=== PATIENT | male | born 1990 | race Caucasian/White ===

== ENCOUNTER 2017-01-25 18:45 | Emergency (ER) | payer BC ==
[2017-01-25] MEDS ORDERED: Ketorolac 60 MG/2 ML SDV IM ONE (18:58)
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
[2017-01-26 01:18] VITALS: BP 127/81
--- NOTE | 2017-01-26 11:41 | CR ---
EXAM DATE: 01/25/17 PATIENT'S AGE: 26 Patient: FRANK VARGAS Facility: [place], [place] Site . Site : 1990 Study: XRay Extremity Left [id number] 7:17:59 PM Ordering Physician: Doctor Forbes Final Report: INDICATION: Injury. Technique: 2 views of the left hand. Impression: Oblique fracture of the proximal phalanx 4th digit. [place] lateral angulation and dorsal angulation. The joint spaces appear normal. Swelling at the level of the PIP joint and fracture site 4th digit. Dictated by Ruben Manrique MD @ Jan 25 2017 7:23PM (Electronic Signature) Report Signed by Proxy. AMPARO
== END 2017-01-25 20:47 | disposition home or self-care (01) ==
LOC: MW.ED 18:45
DX: S62.615A Displaced fracture of proximal phalanx of left ring finger, initial encounter for closed fracture (principal); F17.210 Nicotine dependence, cigarettes, uncomplicated; Y04.0XXA Assault by unarmed brawl or fight, initial encounter
CPT/HCPCS: 73120; 96372; 99283; J1885

== ENCOUNTER 2017-01-28 07:24 | Day surgery (SDC) | payer BC ==
[2017-01-28] MEDS ORDERED: Bupivacaine 0.25%/EPINEPHrine 1:200,000 10 ML SDV ONE (07:31)
[2017-01-28] MEDS ORDERED: Lidocaine 2% 5 ML SDV ONE (07:34)
[2017-01-28] MEDS ORDERED: ceFAZolin 1 GM Vial ONE (07:35)
[2017-01-28] MEDS ORDERED: Midazolam 1 MG/ML 2 ML SDV ONE (07:35)
[2017-01-28] MEDS ORDERED: fentaNYL 250 MCG/5 ML SDV ONE (07:35)
[2017-01-28] MEDS ORDERED: Sodium Chloride 0.9% 20 ML ONE (07:35)
[2017-01-28] MEDS ORDERED: Propofol 200 MG/20 ML SDV ONE (07:35)
[2017-01-28] MEDS ORDERED: Bupivacaine 0.25%/EPINEPHrine 1:200,000 10 ML SDV INJECT ONE (08:00)
[2017-01-28] MEDS ORDERED: Acetaminophen/HYDROcodone 325-5 MG Tab PO PRN (08:00)
[2017-01-28] MEDS ORDERED: Lactated Ringers 1,000 ML IV SCH (08:00)
[2017-01-28] MEDS ORDERED: ceFAZolin 2 GM in Premix Bag 1 BAG IV ONE (08:00)
--- NOTE | 2017-01-28 08:11 | PCM.PREANE ---
Preanesthetic Assessment - Anesthesia/Transfusion/Family Hx Anesthesia History: Prior Anesthesia Without Reaction Family History of Anesthesia Reaction: No Transfusion History: No Prior Transfusion(s) Intubation History: Unknown - Review of Systems General: No Symptoms Pulmonary: No Symptoms Cardiovascular: No Symptoms Gastrointestinal: No symptoms Neurological: No Symptoms Other: Reports: None - Physical Assessment NPO Status Date: 01/27/17 NPO Status Time: 22:30 O2 Sat by Pulse Oximetry: 96 Respiratory Rate: 16 Vital Signs: Last Vital Signs Temp 36.6 C 01/28/17 07:36 Pulse 60 01/28/17 07:36 Resp 16 01/28/17 07:36 BP 130/76 01/28/17 07:36 Pulse Ox 96 01/28/17 07:36 Height: 1.65 m Weight: 69.853 kg ASA Class: 2 Mental Status: Alert & Oriented x3 Airway Class: Mallampati = 2 Dentition: Reports: Normal Dentition Thyro-Mental Finger Breadths: 3 Mouth Opening Finger Breadths: 2 ROM/Head Extension: Full Lungs: Clear to auscultation, Normal respiratory effort Cardiovascular: Regular Rate, Regular Rhythm - Allergies Allergies/Adverse Reactions: Allergies Allergy/AdvReac Type Severity Reaction Status Date / Time No Known Allergies Allergy Verified 01/25/17 18:58 - Blood Blood Available: No - Anesthesia Plan Pre-Op Medication Ordered: None - Acknowledgements Anesthesia Type Planned: General Anesthesia Pt an Appropriate Candidate for the Planned Anesthesia: Yes Alternatives and Risks of Anesthesia Discussed w Pt/Guardian: Yes Pt/Guardian Understands and Agrees with Anesthesia Plan: Yes PreAnesthesia Questionnaire - Past Health History Medical/Surgical History: Denies Medical/Surgical History HEENT History: Reports: None Cardiovascular History: Reports: None Respiratory History: Reports: None Gastrointestinal History: Reports: None Genitourinary History: Reports: None Musculoskeletal History: Reports: Other (See Below) Other Musculoskeletal History: club feet Neurological History: Reports: None Psychiatric History: Reports: None Endocrine/Metabolic History: Reports: None Hematologic History: Reports: None Immunologic History: Reports: None Oncologic (Cancer) History: Reports: None Dermatologic History: Reports: None - Infectious Disease History Infectious Disease History: Reports: Chicken Pox - Past Surgical History Head Surgeries/Procedures: Reports: None Male Surgical History: Reports: None Musculoskeletal Surgical History: Reports: Other (See Below) Other Musculoskeletal Surgeries/Procedures:: repair of club feet - SUBSTANCE USE Smoking Status *Q: Current Every Day Smoker (1/2 ppd) Tobacco Use Within Last Twelve Months: Cigarettes, Smokeless Tobacco Recreational Drug Use History: No - HOME MEDS Home Medications: Home Meds . [No Known Home Meds] 02/28/15 [History] - CURRENT (IN HOUSE) MEDS Current Meds: Current Medications Hydrocodone Bitart/Acetaminophen (Stephan 325-5 Mg) 1 tab PO Q4H PRN PRN Reason: Pain Lactated Ringer's (Ringers, Lactated) 1,000 mls @ 125 mls/hr IV ASDIRECTED MICHELLE Last Admin: 01/28/17 07:37 Dose: 125 mls/hr Cefazolin Sodium/Dextrose 2 gm (/ Premix) 50 mls @ 100 mls/hr IV ONETIME ONE Stop: 01/28/17 08:29 Discontinued Medications Bupivacaine HCl/Epinephrine Bitart (Marcaine 0.25%/Epinephrine 1:200,000) 10 ml INJECT ONETIME ONE Stop: 01/28/17 08:01 Bupivacaine HCl/Epinephrine Bitart (Marcaine 0.25%/Epinephrine 1:200,000) Confirm Administered Dose 20 ml .ROUTE .STK-MED ONE Stop: 01/28/17 07:32 Cefazolin Sodium (Ancef) Confirm Administered Dose 2 gm .ROUTE .STK-MED ONE Stop: 01/28/17 07:36 Fentanyl (Sublimaze) Confirm Administered Dose 250 mcg .ROUTE .STK-MED ONE Stop: 01/28/17 07:36 Sodium Chloride (Normal Saline) Confirm Administered Dose 20 mls @ as directed .ROUTE .STK-MED ONE Stop: 01/28/17 07:36 Lidocaine (Xylocaine-Mpf 2%) Confirm Administered Dose 10 ml .ROUTE .STK-MED ONE Stop: 01/28/17 07:35 Midazolam HCl (Versed 1 Mg/Ml) Confirm Administered Dose 2 mg .ROUTE .STK-MED ONE Stop: 01/28/17 07:36 Propofol (Diprivan 20 Ml) Confirm Administered Dose 400 mg .ROUTE .STK-MED ONE Stop: 01/28/17 07:36
[2017-01-28] MEDS ORDERED: fentaNYL 100 MCG/2 ML SDV ONE (09:31)
[2017-01-28] MEDS ORDERED: fentaNYL 100 MCG/2 ML SDV IVPUSH PRN (09:46)
[2017-01-28 11:10] VITALS: BP 125/77
--- NOTE | 2017-01-28 15:13 | CR ---
EXAMINATION: Left hand HISTORY: Reduction COMPARISON: 01/25/2017 TECHNIQUE: 3 views FINDINGS/IMPRESSION: Operative control films demonstrate 2 pins fixating a minimally displaced obliq ue proximal fourth phalanx fracture.
--- NOTE | 2017-01-28 16:32 | PCM.OPNOTE ---
- General Post-Op/Procedure Note Date of Surgery/Procedure: 01/28/17 Operative Procedure(s): closed reduction pin fixation of left ring finger proximal phalanx fracture Pre Op Diagnosis: left ring finger proximal phalanx fracture - closed and displaced. Post-Op Diagnosis: Same Anesthesia Technique: General LMA, Local Primary Surgeon: Laura Obregon Wet Chemistry Analyst: Leslie Khoury Complications: None Condition: Good Free Text/Narrative:: Intake & Output 01/28/17 01/28/17 01/28/17 07:59 15:59 23:59 Intake Total 1000 Balance 1000 [id number]
--- NOTE | 2017-01-28 23:09 | OR ---
SURGEON: LESLI FERNANDEZ MD DATE OF PROCEDURE: 01/28/2017 PREOPERATIVE DIAGNOSIS: Left ring finger proximal phalanx fracture. POSTOPERATIVE DIAGNOSIS: Left ring finger proximal phalanx fracture. PROCEDURE: Closed reduction and pin fixation of left ring finger displaced proximal phalanx fracture. AUDIENCE DEVELOPMENT MANAGER: Leslie Khoury. ANESTHESIA: General LMA with local anesthesia. INDICATIONS: Mr. Winston Wagner is a 26-year-old gentleman with a displaced proximal phalanx fracture of the ring finger. This is on the left hand. Risks and benefits of closed reduction and percutaneous pin fixation were discussed with him and he was in agreement to proceed. Risks were including, but not limited to, bleeding, infection, damage to underlying or overlying structures, possible need for future interventions, and possible scarring. PROCEDURE IN DETAILS: After informed consent was obtained and placed on the chart, the patient was brought to the operating theater and laid in the supine position. After adequate general anesthetic was obtained, the area was prepped and draped, a time-out was completed to confirm side and site. Attention was then paid to fluoroscopic imaging which was used to confirm reduction. Two 0.045 K-wires were placed across the fracture site and appropriate reduction was appreciated in the lateral position. The PA position was minimally displaced, but deemed acceptable. The wires were trimmed and covers were placed. The hand was placed in a short-arm ulnar gutter splint. This was done with plaster. The patient tolerated this well. All counts of needles were correct at the end the case. The wound was dressed with Xeroform and fluffs prior to splinting. FOLLOWUP INSTRUCTIONS: The patient will see us in clinic in 10 days sooner if any problems, questions, or concerns. He was given a prescription for diclofenac for pain control. HEGGTHE / MODL /[id number]
== END 2017-01-28 11:05 | disposition home or self-care (01) ==
LOC: MW.SDS 07:24
PROVIDERS: ATTEND Plastic Surgery
PROC: 0PSV34Z Reposition Left Finger Phalanx with Internal Fixation Device, Percutaneous Approach (ICD-10-PCS; principal; 2017-01-28)
DX: S62.615A Displaced fracture of proximal phalanx of left ring finger, initial encounter for closed fracture (principal); F17.210 Nicotine dependence, cigarettes, uncomplicated; Z98.890 Other specified postprocedural states
CPT/HCPCS: 26727; 76000; J0690; J2250; J3010; J7120; 01820; J2704

== ENCOUNTER 2017-08-06 21:41 | Emergency (ER) | payer BC ==
[2017-08-06 22:02] VITALS: BP 135/88
--- NOTE | 2017-08-06 22:03 | EDM.PDOC ---
ED HPI GENERAL MEDICAL PROBLEM - General Chief Complaint: General Stated Complaint: MEDICAL CLEARANCE Time Seen by Provider: 08/06/17 21:59 - History of Present Illness INITIAL COMMENTS - FREE TEXT/NARRATIVE: HISTORY AND PHYSICAL: History of present illness: Patient is 27-year-old white male here for medical clearance and custody of law enforcement. Review of systems: As per history of present illness and below otherwise all systems reviewed and negative. Past medical history: As per history of present illness and as reviewed below otherwise noncontributory. Surgical history: As per history of present illness and as reviewed below otherwise noncontributory. Social history: No reported history of drug or alcohol abuse. Family history: As per history of present illness and as reviewed below otherwise noncontributory. Physical exam: HEENT: Atraumatic, normocephalic, pupils reactive, negative for conjunctival pallor or scleral icterus, mucous membranes moist, throat clear, neck supple, nontender, trachea midline. Lungs: Clear to auscultation, breath sounds equal bilaterally, chest nontender. Heart: S1S2, regular, negative for clicks, rubs, or JVD. Abdomen: Soft, nondistended, nontender. Negative for masses or hepatosplenomegaly. Negative for costovertebral tenderness. Pelvis: Stable nontender. Genitourinary: Deferred. Rectal: Deferred. Extremities: Atraumatic, negative for cords or calf pain. Neurovascular unremarkable. Neuro: Awake, alert, oriented. Cranial nerves II through XII unremarkable. Cerebellum unremarkable. Motor and sensory unremarkable throughout. Exam nonfocal. Diagnostics: None Therapeutics: None Impression: #1 medically clear for incarceration Definitive disposition and diagnosis as appropriate pending reevaluation and review of above. - Related Data Allergies Allergy/AdvReac Type Severity Reaction Status Date / Time No Known Allergies Allergy Verified 01/25/17 18:58 Home Meds: Home Meds Diclofenac Sodium [IJD: Diclofenac Sodium] 75 mg PO .TWICE DAILY W MEALS #20 tab.ec 01/28/17 [Rx] Past Medical History - Past Health History Medical/Surgical History: Denies Medical/Surgical History HEENT History: Reports: None Cardiovascular History: Reports: None Respiratory History: Reports: None Gastrointestinal History: Reports: None Genitourinary History: Reports: None Musculoskeletal History: Reports: Other (See Below) Other Musculoskeletal History: club feet Neurological History: Reports: None Psychiatric History: Reports: None Endocrine/Metabolic History: Reports: None Hematologic History: Reports: None Immunologic History: Reports: None Oncologic (Cancer) History: Reports: None Dermatologic History: Reports: None - Infectious Disease History Infectious Disease History: Reports: Chicken Pox - Past Surgical History Head Surgeries/Procedures: Reports: None Male Surgical History: Reports: None Musculoskeletal Surgical History: Reports: Other (See Below) Other Musculoskeletal Surgeries/Procedures:: repair of club feet Social & Family History - Family History Family Medical History: Noncontributory - Tobacco Use Smoking Status *Q: Current Every Day Smoker (1/2 ppd) Years of Tobacco use: 10 Packs/Tins Daily: 0.5 - Caffeine Use Caffeine Use: Reports: None - Recreational Drug Use Recreational Drug Use: No Drug Use in Last 12 Months: No ED ROS GENERAL - Review of Systems Review Of Systems: ROS reveals no pertinent complaints other than HPI. ED EXAM, GENERAL - Physical Exam Exam: See Below (see dictation) Departure - Departure Time of Disposition: 22:02 Disposition: Home, Self-Care 01 Condition: Good Clinical Impression: Medical clearance for incarceration - Discharge Information Referrals: PCP,None [Primary Care Provider] - Additional Instructions: The following information is given to patients seen in the emergency department who are being discharged to home. This information is to outline your options for follow-up care. We provide all patients seen in our emergency department with a follow-up referral. The need for follow-up, as well as the timing and circumstances, are variable depending upon the specifics of your emergency department visit. If you don't have a primary care physician on staff, we will provide you with a referral. We always advise you to contact your personal physician following an emergency department visit to inform them of the circumstance of the visit and for follow-up with them and/or the need for any referrals to a consulting specialist. The emergency department will also refer you to a specialist when appropriate. This referral assures that you have the opportunity for followup care with a specialist. All of these measure are taken in an effort to provide you with optimal care, which includes your followup. Under all circumstances we always encourage you to contact your private physician who remains a resource for coordinating your care. When calling for followup care, please make the office aware that this follow-up is from your recent emergency room visit. If for any reason you are refused follow -up, please contact the [facility] emergency department at and asked to speak to the emergency department charge nurse. Follow-up primary medical doctor 1-2 days return as needed as discussed
== END 2017-08-06 22:08 | disposition home or self-care (01) ==
LOC: MW.ED 21:41
DX: Z02.89 Encounter for other administrative examinations (principal); F17.210 Nicotine dependence, cigarettes, uncomplicated; Z79.1 Long term (current) use of non-steroidal anti-inflammatories (NSAID)
CPT/HCPCS: 99282

== ENCOUNTER 2017-11-12 13:34 | Observation (INO) | payer BC ==
[2017-11-12] MEDS ORDERED: Sodium Chloride 0.9% 1,000 ML IV ONE ×2 (13:48→16:56)
--- NOTE | 2017-11-12 13:51 | EDM.PDOC ---
ED HPI GENERAL MEDICAL PROBLEM - General Chief Complaint: Gastrointestinal Problem Stated Complaint: VOMITTING BLOOD Time Seen by Provider: 11/12/17 13:45 Source of Information: Reports: Patient History Limitations: Reports: No Limitations - History of Present Illness INITIAL COMMENTS - FREE TEXT/NARRATIVE: HISTORY AND PHYSICAL: History of present illness: Patient is a 27-year-old male who presents to the emergency room today with complaints of vomiting, abdominal pain generalized body aches. Patient states he had drank heavily last night had projectile/ "non-stop" vomiting. Today he noticed that there was "red and black" in his emesis. A friend that is with him states that she was with him last night and he was "drunk". She reports that he had gotten into the shower and had fallen, hitting his head. He proceeded to sleep but woke up this morning again with red/maroon colored emesis. Continues with generalized abdominal pain with nausea/vomiting. Patient is a daily smoker and reports he was a daily drinker up until approximately 3 months ago. Reports his alcohol is now limited to occasional/ social. Routine marijuana smoker. Denies any other drug/substance abuse. He denies any fever, chills, chest pain or shortness of breath. Denies any diarrhea or constipation. Review of systems: As per history of present illness and below otherwise all systems reviewed and negative. Past medical history: As per history of present illness and as reviewed below otherwise noncontributory. Surgical history: As per history of present illness and as reviewed below otherwise noncontributory. Social history: No reported history of drug or alcohol abuse. Family history: As per history of present illness and as reviewed below otherwise noncontributory. Physical exam: General: Well-developed and well-nourished 27-year-old male. Alert and oriented. Nontoxic appearing but is actively vomiting. HEENT: Superficial abrasions noted to the left and right upper forehead, nontender with palpation, normocephalic, pupils equal and reactive bilaterally, negative for conjunctival pallor or scleral icterus. His mucous membranes are moist, throat clear, neck supple, nontender, trachea midline. No drooling or trismus noted. No meningeal signs. Lungs: Clear to auscultation, breath sounds equal bilaterally, chest nontender. Heart: S1S2, regular rate and rhythm without overt murmur Abdomen: Soft, nondistended, diffuse tenderness in all 4 quadrants. Negative for masses or hepatosplenomegaly. Negative for costovertebral tenderness. Pelvis: Stable nontender. Genitourinary: Deferred. Rectal: This was done with a chaparone at bedside. No external/internal hemorrhoids noted. Hemoccult negative Skin: Intact, warm, dry. No lesions or rashes noted. Superficial abrasions noted to the upper forehead. Extremities: Atraumatic, negative for cords or calf pain. Neurovascular unremarkable. Neuro: Awake, alert, oriented. Cranial nerves II through XII unremarkable. Cerebellum unremarkable. Motor and sensory unremarkable throughout. Exam nonfocal. Notes: Patient is actively vomiting with light red/clear appearing emesis. Generalized abdominal pain and tenderness with palpation. Labs/Imagining/Meds ordered. Rectal exam was done with a environmental protection geologist at the bedside. Patient is Hemoccult negative. 1543: WBC is 26.03 - Waiting for abdominal/pelvis CT. VSS. Patient still c/o nausea and dry heaving. Phenergan IM ordered. 1615: Nausea/vomiting has resolved. Patient resting with eyes shut. VSS. 1650: There has been a delay in patient getting his CT; waiting on CT results. 1740: Patient has no current complaints. He is resting quietly and texting on his phone. Has not had any nausea or vomiting. Head CT normal without evidence of fracture or bleeding. No acute abnormality of the abdomen and pelvis ( appendix is normal). Patient does not feel comfortable to be discharged to home. I would like to keep him for observation to monitor his white count and make sure he is improving. 1809- Patient admitted as an Observation per [place] Diagnostics: CBC, CMP, amylase, lipase, H.Pylori, CT abd/pelvis, head CT, UA, drug screen Therapeutics: IV fluid, Zofran, Pepcid, Phenergan IM Impression: Intractable Vomiting Dehydration Plan: Observation to Med/Surg Definitive disposition and diagnosis as appropriate pending reevaluation and review of above. Duration: Hour(s): Location: Reports: Abdomen Abdomen Pain Score (Numeric/FACES): 10 - Related Data Allergies Allergy/AdvReac Type Severity Reaction Status Date / Time No Known Allergies Allergy Verified 11/12/17 13:58 Home Meds: Home Meds FLUoxetine HCl [Prozac] 20 mg DAILY 11/12/17 [History] cloNIDine [Catapres] 1 tab DAILY 11/12/17 [History] Past Medical History - Past Health History Medical/Surgical History: Denies Medical/Surgical History HEENT History: Reports: None Cardiovascular History: Reports: None Respiratory History: Reports: None Gastrointestinal History: Reports: None Genitourinary History: Reports: None Musculoskeletal History: Reports: Other (See Below) Other Musculoskeletal History: club feet Neurological History: Reports: None Psychiatric History: Reports: None Endocrine/Metabolic History: Reports: None Hematologic History: Reports: None Immunologic History: Reports: None Oncologic (Cancer) History: Reports: None Dermatologic History: Reports: None - Infectious Disease History Infectious Disease History: Reports: Chicken Pox - Past Surgical History Head Surgeries/Procedures: Reports: None Male Surgical History: Reports: None Musculoskeletal Surgical History: Reports: Other (See Below) Other Musculoskeletal Surgeries/Procedures:: repair of club feet Social & Family History - Family History Family Medical History: Noncontributory - Tobacco Use Smoking Status *Q: Current Every Day Smoker (1/2 ppd) Years of Tobacco use: 10 Packs/Tins Daily: 0.5 - Caffeine Use Caffeine Use: Reports: None - Recreational Drug Use Recreational Drug Use: No Drug Use in Last 12 Months: No Recreational Drug Type: Reports: Marijuana/Hashish ED ROS GENERAL - Review of Systems Review Of Systems: ROS reveals no pertinent complaints other than HPI. ED EXAM, GI/ABD - Physical Exam Exam: See Below (See dictation) Course - Vital Signs Last Recorded V/S: Last Vital Signs Temp 96.6 F 11/12/17 13:54 Pulse 64 11/12/17 13:54 Resp 26 H 11/12/17 13:54 BP 138/94 H 11/12/17 13:54 Pulse Ox 100 11/12/17 13:54 - Orders/Labs/Meds Orders: Active Orders 24 hr Category Date Time Status Admission Status [Patient Status] [ADT] Stat ADT 11/12/17 18:17 Ordered Abdomen Pelvis w Cont [CT] Stat Exams 11/12/17 13:48 Taken Head wo Cont [CT] Stat Exams 11/12/17 13:59 Taken CULTURE BLOOD [BC] Stat Lab 11/12/17 17:40 Results CULTURE BLOOD [BC] Stat Lab 11/12/17 18:02 Received DRUG SCREEN, URINE [URCHEM] Stat Lab 11/12/17 15:41 Ordered UA W/MICROSCOPIC [URIN] Stat Lab 11/12/17 15:41 Ordered Sodium Chloride 0.9% [Normal Saline] 1,000 ml Med 11/12/17 16:56 Active IV STAT Blood Culture x2 Reflex Set [OM.PC] Stat Oth 11/12/17 17:01 Ordered Medication Orders Sodium Chloride (Normal Saline) 1,000 mls @ 125 mls/hr IV STAT ONE Stop: 11/13/17 00:55 Last Admin: 11/12/17 17:56 Dose: 125 mls/hr Labs: Laboratory Tests 11/12/17 11/12/17 11/12/17 Range/Units 14:10 14:10 14:10 WBC 26.03 H (4.0-11.0) K/uL RBC 5.87 (4.50-5.90) M/uL Hgb 17.9 H (13.0-17.0) g/dL Hct 49.7 (38.0-50.0) % MCV 84.7 (80.0-98.0) fL MCH 30.5 (27.0-32.0) pg MCHC 36.0 (31.0-37.0) g/dL RDW Std Deviation 40.4 (28.0-62.0) fl RDW Coeff of Kathryn 13 (11.0-15.0) % Plt Count 340 (150-400) K/uL MPV 9.80 (7.40-12.00) fL Add Manual Diff YES Neutrophils % (Manual) 90 H (48.0-80.0) % Band Neutrophils % 4 % Lymphocytes % (Manual) 3 L (16.0-40.0) % Monocytes % (Manual) 3 (0.0-15.0) % Nucleated RBC % 0.0 /100WBC Absolute Seg Neuts 23.4 H (1.4-5.7) Band Neutrophils # 1.0 Lymphocytes # (Manual) 0.8 (0.6-2.4) Monocytes # (Manual) 0.8 (0.0-0.8) Nucleated RBCs # 0 K/uL Sodium 137 (136-148) mmol/L Potassium 4.1 (3.5-5.1) mmol/L Chloride 98 (98-107) mmol/L Carbon Dioxide 13.2 L (21.0-32.0) mmol/L BUN 20 H (7.0-18.0) mg/dL Creatinine 1.4 H (0.8-1.3) mg/dL Est Cr Clr Drug Dosing 68.33 mL/min Estimated GFR (MDRD) > 60.0 ml/min Glucose 127 H (74-106) mg/dL Calcium 9.8 (8.5-10.1) mg/dL Total Bilirubin 0.5 (0.2-1.0) mg/dL AST 36 (15-37) IU/L ALT 42 (14-63) IU/L Alkaline Phosphatase 69 (46-116) U/L Total Protein 8.5 H (6.4-8.2) g/dL Albumin 5.2 H (3.4-5.0) g/dL Globulin 3.3 (2.0-3.5) g/dL Albumin/Globulin Ratio 1.6 (1.3-2.8) Amylase 40 (25-115) U/L Lipase 56 L (73-393) U/L Urine Color Urine Appearance Urine pH (5.0-8.0) Ur Specific [place] (1.001-1.035) Urine Protein (NEGATIVE) mg/dL Urine Glucose (UA) (NEGATIVE) mg/dL Urine Ketones (NEGATIVE) mg/dL Urine Occult Blood (NEGATIVE) Urine Nitrite (NEGATIVE) Urine Bilirubin (NEGATIVE) Urine Urobilinogen (<2.0) EU/dL Ur Leukocyte Esterase (NEGATIVE) Urine RBC (0-2/HPF) Urine WBC (0-5/HPF) Ur Epithelial Cells (NONE-FEW) Urine Bacteria (NEGATIVE) Urine Opiates Screen (NEGATIVE) Ur Oxycodone Screen (NEGATIVE) Urine Methadone Screen (NEGATIVE) Ur Barbiturates Screen (NEGATIVE) Ur Phencyclidine Scrn (NEGATIVE) Ur Amphetamine Screen (NEGATIVE) U Methamphetamines Scrn (NEGATIVE) U Benzodiazepines Scrn (NEGATIVE) U Cocaine Metab Screen (NEGATIVE) U Marijuana (THC) Screen (NEGATIVE) H. pylori IgG Antibody NEGATIVE (NEG) 11/12/17 11/12/17 Range/Units 15:41 15:41 WBC (4.0-11.0) K/uL RBC (4.50-5.90) M/uL Hgb (13.0-17.0) g/dL Hct (38.0-50.0) % MCV (80.0-98.0) fL MCH (27.0-32.0) pg MCHC (31.0-37.0) g/dL RDW Std Deviation (28.0-62.0) fl RDW Coeff of Kathryn (11.0-15.0) % Plt Count (150-400) K/uL MPV (7.40-12.00) fL Add Manual Diff Neutrophils % (Manual) (48.0-80.0) % Band Neutrophils % % Lymphocytes % (Manual) (16.0-40.0) % Monocytes % (Manual) (0.0-15.0) % Nucleated RBC % /100WBC Absolute Seg Neuts (1.4-5.7) Band Neutrophils # Lymphocytes # (Manual) (0.6-2.4) Monocytes # (Manual) (0.0-0.8) Nucleated RBCs # K/uL Sodium (136-148) mmol/L Potassium (3.5-5.1) mmol/L Chloride (98-107) mmol/L Carbon Dioxide (21.0-32.0) mmol/L BUN (7.0-18.0) mg/dL Creatinine (0.8-1.3) mg/dL Est Cr Clr Drug Dosing mL/min Estimated GFR (MDRD) ml/min Glucose (74-106) mg/dL Calcium (8.5-10.1) mg/dL Total Bilirubin (0.2-1.0) mg/dL AST (15-37) IU/L ALT (14-63) IU/L Alkaline Phosphatase (46-116) U/L Total Protein (6.4-8.2) g/dL Albumin (3.4-5.0) g/dL Globulin (2.0-3.5) g/dL Albumin/Globulin Ratio (1.3-2.8) Amylase (25-115) U/L Lipase (73-393) U/L Urine Color YELLOW Urine Appearance CLEAR Urine pH 5.5 (5.0-8.0) Ur Specific [place] >= 1.030 (1.001-1.035) Urine Protein 30 (NEGATIVE) mg/dL Urine Glucose (UA) NEGATIVE (NEGATIVE) mg/dL Urine Ketones 40 H (NEGATIVE) mg/dL Urine Occult Blood SMALL H (NEGATIVE) Urine Nitrite NEGATIVE (NEGATIVE) Urine Bilirubin NEGATIVE (NEGATIVE) Urine Urobilinogen 0.2 (<2.0) EU/dL Ur Leukocyte Esterase NEGATIVE (NEGATIVE) Urine RBC 0-1 (0-2/HPF) Urine WBC 0-1 (0-5/HPF) Ur Epithelial Cells RARE (NONE-FEW) Urine Bacteria RARE (NEGATIVE) Urine Opiates Screen NEGATIVE (NEGATIVE) Ur Oxycodone Screen NEGATIVE (NEGATIVE) Urine Methadone Screen NEGATIVE (NEGATIVE) Ur Barbiturates Screen NEGATIVE (NEGATIVE) Ur Phencyclidine Scrn NEGATIVE (NEGATIVE) Ur Amphetamine Screen NEGATIVE (NEGATIVE) U Methamphetamines Scrn NEGATIVE (NEGATIVE) U Benzodiazepines Scrn NEGATIVE (NEGATIVE) U Cocaine Metab Screen NEGATIVE (NEGATIVE) U Marijuana (THC) Screen POSITIVE (NEGATIVE) H. pylori IgG Antibody (NEG) Meds: Medications Generic Name Dose Route Start Last Admin Trade Name Freq PRN Reason Stop Dose Admin Sodium Chloride 1,000 mls @ 125 mls/hr 11/12/17 16:56 11/12/17 17:56 Normal Saline IV 11/13/17 00:55 125 mls/hr STAT ONE Administration Discontinued Medications Generic Name Dose Route Start Last Admin Trade Name Freq PRN Reason Stop Dose Admin Famotidine 20 mg 11/12/17 13:59 11/12/17 14:11 Pepcid IVPUSH 11/12/17 14:00 20 mg ONETIME ONE Administration Sodium Chloride 1,000 mls @ 999 mls/hr 11/12/17 13:48 11/12/17 14:10 Normal Saline IV 11/12/17 14:48 999 mls/hr STAT ONE Administration Iopamidol 85 ml 11/12/17 17:19 11/12/17 17:30 Isovue Multipack-370 (76%) IVPUSH 11/12/17 17:20 85 ml ONETIME STA Administration Ondansetron HCl 8 mg 11/12/17 13:59 11/12/17 14:11 Zofran IVPUSH 11/12/17 14:00 8 mg ONETIME ONE Administration Promethazine HCl 25 mg 11/12/17 15:43 11/12/17 16:04 Phenergan IM 11/12/17 15:44 25 mg ONETIME ONE Administration Departure - Departure Time of Disposition: 18:25 Disposition: Refer to Observation Clinical Impression: Dehydration, Vomiting - Discharge Information Referrals: PCP,None [Primary Care Provider] - Forms: ED Department Discharge - My Orders Last 24 Hours: My Active Orders 11/12/17 13:48 Abdomen Pelvis w Cont [CT] Stat 11/12/17 13:59 Head wo Cont [CT] Stat 11/12/17 15:41 DRUG SCREEN, URINE [URCHEM] Stat UA W/MICROSCOPIC [URIN] Stat 11/12/17 16:56 Sodium Chloride 0.9% [Normal Saline] 1,000 ml IV STAT 11/12/17 17:01 Blood Culture x2 Reflex Set [OM.PC] Stat 11/12/17 17:40 CULTURE BLOOD [BC] Stat 11/12/17 18:02 CULTURE BLOOD [BC] Stat 11/12/17 18:17 Admission Status [Patient Status] [ADT] Stat - Assessment/Plan Last 24 Hours: My Active Orders 11/12/17 13:48 Abdomen Pelvis w Cont [CT] Stat 11/12/17 13:59 Head wo Cont [CT] Stat 11/12/17 15:41 DRUG SCREEN, URINE [URCHEM] Stat UA W/MICROSCOPIC [URIN] Stat 11/12/17 16:56 Sodium Chloride 0.9% [Normal Saline] 1,000 ml IV STAT 11/12/17 17:01 Blood Culture x2 Reflex Set [OM.PC] Stat 11/12/17 17:40 CULTURE BLOOD [BC] Stat 11/12/17 18:02 CULTURE BLOOD [BC] Stat 11/12/17 18:17 Admission Status [Patient Status] [ADT] Stat
[2017-11-12] MEDS ORDERED: Ondansetron 4 MG/2 ML SDV IVPUSH ONE (13:59)
[2017-11-12] MEDS ORDERED: Famotidine 20 MG/2 ML SDV IVPUSH ONE (13:59)
--- NOTE | 2017-11-12 14:55 | CR ---
EXAMINATION: Portable chest radiograph. HISTORY: Shortness of breath. FINDINGS: The trachea is midline. The cardiomediastinal silhouette is within normal limits. No pulmonary infilt rates, effusions or pneumothorax. Osseous structures appear unremarkable. IMPRESSION: No acute cardiopulmonary process.
[2017-11-12 15:10] LABS: CHLORIDE,CL 98 mmol/L (98-107); SODIUM,NA 137 mmol/L (136-148)
[2017-11-12] MEDS ORDERED: Promethazine 25 MG/ML SDV IM ONE (15:43)
[2017-11-12] MEDS ORDERED: Iopamidol 755 MG/ML 500 ML Multipack Bottle IVPUSH STA (17:19)
[2017-11-12] MEDS ORDERED: Sodium Chloride 0.9% 2.5 ML Syringe FLUSH PRN (19:20)
[2017-11-12] MEDS ORDERED: Sodium Chloride 0.9% 10 ML Syringe FLUSH PRN (19:20)
[2017-11-12] MEDS ORDERED: HYDROmorphone 2 MG/ML SDV IVPUSH PRN (19:20)
[2017-11-12] MEDS ORDERED: Promethazine 25 MG/ML SDV IM PRN (19:20)
--- NOTE | 2017-11-12 19:41 | PCM.HP ---
<Paula Hernandezqas Z - Last Filed: 11/12/17 20:41> H&P History of Present Illness - General Date of Service: 11/12/17 Admit Problem/Dx: Admission Diagnosis/Problem Admission Diagnosis/Problem Dehydration - History of Present Illness Initial Comments - Free Text/Narative: This is a 27-year-old male who is being admitted secondary to intractable nausea and vomiting of acute onset. Patient was heavily drinking yesterday, and started to have multiple episodes of retching and vomiting, patient's friend does report that he did have what appeared to be reddish-type vomit and possibly some blood type symptoms. Patient then went home with a friend, friend states that the patient was taking a shower when he slipped and fell, got up and went to his bed afterwards had another bout of vomiting and then went to sleep. Patient woke up again with severe abdominal pain and continued to have multiple episodes of intractable nausea and vomiting and unable to taken any by mouth. Patient does state that he has had previous withdrawal symptoms in the past due to alcohol abuse but has not been drinking too heavily as of recently. He does state that he has recently been using marijuana but no other illicit drugs. He has not had any issues of GI complaints prior to this episode. Abdomen Pain Score (Numeric/FACES): 10 - Related Data Allergies/Adverse Reactions: Allergies Allergy/AdvReac Type Severity Reaction Status Date / Time No Known Allergies Allergy Verified 11/12/17 13:58 Home Medications: Home Meds FLUoxetine HCl [Prozac] 20 mg DAILY 11/12/17 [History] cloNIDine [Catapres] 1 tab DAILY 11/12/17 [History] Past Medical History - Past Health History Medical/Surgical History: Denies Medical/Surgical History HEENT History: Reports: None Cardiovascular History: Reports: None Respiratory History: Reports: None Gastrointestinal History: Reports: None Genitourinary History: Reports: None Musculoskeletal History: Reports: Other (See Below) Other Musculoskeletal History: club feet Neurological History: Reports: None Psychiatric History: Reports: None Endocrine/Metabolic History: Reports: None Hematologic History: Reports: None Immunologic History: Reports: None Oncologic (Cancer) History: Reports: None Dermatologic History: Reports: None - Infectious Disease History Infectious Disease History: Reports: Chicken Pox - Past Surgical History Head Surgeries/Procedures: Reports: None Male Surgical History: Reports: None Musculoskeletal Surgical History: Reports: Other (See Below) Other Musculoskeletal Surgeries/Procedures:: repair of club feet Social & Family History - Family History Family Medical History: Noncontributory - Tobacco Use Smoking Status *Q: Current Every Day Smoker (1/2 ppd) Years of Tobacco use: 10 Packs/Tins Daily: 0.5 - Caffeine Use Caffeine Use: Reports: None - Recreational Drug Use Recreational Drug Use: No Drug Use in Last 12 Months: No Recreational Drug Type: Reports: Marijuana/Hashish Recreational Drug Use Frequency: Socially H&P Review of Systems - Review of Systems: Review Of Systems: ROS reveals no pertinent complaints other than HPI. Exam - Exam Exam: See Below - Vital Signs Vital Signs: Last Vital Signs Temp 37.0 C 11/12/17 19:24 Pulse 69 11/12/17 19:24 Resp 16 11/12/17 19:24 BP 147/78 H 11/12/17 19:24 Pulse Ox 98 11/12/17 19:24 Weight: 68.8 kg - Exam General: Alert, Oriented, Mild Distress, Moderate Distress Lungs: Clear to Auscultation, Normal Respiratory Effort Cardiovascular: Regular Rate, Regular Rhythm GI/Abdominal Exam: Soft, No Organomegaly, Tender Back Exam: Other (Bilateral back pain likely secondary to musculoskeletal pain due to severe wrenching) Extremities: Normal Inspection, Normal Range of Motion - Patient Data Lab Results Last 24 hrs: Laboratory Results - last 24 hr 11/12/17 11/12/17 11/12/17 Range/Units 14:10 14:10 14:10 WBC 26.03 H (4.0-11.0) K/uL RBC 5.87 (4.50-5.90) M/uL Hgb 17.9 H (13.0-17.0) g/dL Hct 49.7 (38.0-50.0) % MCV 84.7 (80.0-98.0) fL MCH 30.5 (27.0-32.0) pg MCHC 36.0 (31.0-37.0) g/dL RDW Std Deviation 40.4 (28.0-62.0) fl RDW Coeff of Kathryn 13 (11.0-15.0) % Plt Count 340 (150-400) K/uL MPV 9.80 (7.40-12.00) fL Add Manual Diff YES Neutrophils % (Manual) 90 H (48.0-80.0) % Band Neutrophils % 4 % Lymphocytes % (Manual) 3 L (16.0-40.0) % Monocytes % (Manual) 3 (0.0-15.0) % Nucleated RBC % 0.0 /100WBC Absolute Seg Neuts 23.4 H (1.4-5.7) Band Neutrophils # 1.0 Lymphocytes # (Manual) 0.8 (0.6-2.4) Monocytes # (Manual) 0.8 (0.0-0.8) Nucleated RBCs # 0 K/uL Sodium 137 (136-148) mmol/L Potassium 4.1 (3.5-5.1) mmol/L Chloride 98 (98-107) mmol/L Carbon Dioxide 13.2 L (21.0-32.0) mmol/L BUN 20 H (7.0-18.0) mg/dL Creatinine 1.4 H (0.8-1.3) mg/dL Est Cr Clr Drug Dosing 68.33 mL/min Estimated GFR (MDRD) > 60.0 ml/min Glucose 127 H (74-106) mg/dL Calcium 9.8 (8.5-10.1) mg/dL Total Bilirubin 0.5 (0.2-1.0) mg/dL AST 36 (15-37) IU/L ALT 42 (14-63) IU/L Alkaline Phosphatase 69 (46-116) U/L Total Protein 8.5 H (6.4-8.2) g/dL Albumin 5.2 H (3.4-5.0) g/dL Globulin 3.3 (2.0-3.5) g/dL Albumin/Globulin Ratio 1.6 (1.3-2.8) Amylase 40 (25-115) U/L Lipase 56 L (73-393) U/L Urine Color Urine Appearance Urine pH (5.0-8.0) Ur Specific [place] (1.001-1.035) Urine Protein (NEGATIVE) mg/dL Urine Glucose (UA) (NEGATIVE) mg/dL Urine Ketones (NEGATIVE) mg/dL Urine Occult Blood (NEGATIVE) Urine Nitrite (NEGATIVE) Urine Bilirubin (NEGATIVE) Urine Urobilinogen (<2.0) EU/dL Ur Leukocyte Esterase (NEGATIVE) Urine RBC (0-2/HPF) Urine WBC (0-5/HPF) Ur Epithelial Cells (NONE-FEW) Urine Bacteria (NEGATIVE) Urine Opiates Screen (NEGATIVE) Ur Oxycodone Screen (NEGATIVE) Urine Methadone Screen (NEGATIVE) Ur Barbiturates Screen (NEGATIVE) Ur Phencyclidine Scrn (NEGATIVE) Ur Amphetamine Screen (NEGATIVE) U Methamphetamines Scrn (NEGATIVE) U Benzodiazepines Scrn (NEGATIVE) U Cocaine Metab Screen (NEGATIVE) U Marijuana (THC) Screen (NEGATIVE) H. pylori IgG Antibody NEGATIVE (NEG) 11/12/17 11/12/17 Range/Units 15:41 15:41 WBC (4.0-11.0) K/uL RBC (4.50-5.90) M/uL Hgb (13.0-17.0) g/dL Hct (38.0-50.0) % MCV (80.0-98.0) fL MCH (27.0-32.0) pg MCHC (31.0-37.0) g/dL RDW Std Deviation (28.0-62.0) fl RDW Coeff of Kathryn (11.0-15.0) % Plt Count (150-400) K/uL MPV (7.40-12.00) fL Add Manual Diff Neutrophils % (Manual) (48.0-80.0) % Band Neutrophils % % Lymphocytes % (Manual) (16.0-40.0) % Monocytes % (Manual) (0.0-15.0) % Nucleated RBC % /100WBC Absolute Seg Neuts (1.4-5.7) Band Neutrophils # Lymphocytes # (Manual) (0.6-2.4) Monocytes # (Manual) (0.0-0.8) Nucleated RBCs # K/uL Sodium (136-148) mmol/L Potassium (3.5-5.1) mmol/L Chloride (98-107) mmol/L Carbon Dioxide (21.0-32.0) mmol/L BUN (7.0-18.0) mg/dL Creatinine (0.8-1.3) mg/dL Est Cr Clr Drug Dosing mL/min Estimated GFR (MDRD) ml/min Glucose (74-106) mg/dL Calcium (8.5-10.1) mg/dL Total Bilirubin (0.2-1.0) mg/dL AST (15-37) IU/L ALT (14-63) IU/L Alkaline Phosphatase (46-116) U/L Total Protein (6.4-8.2) g/dL Albumin (3.4-5.0) g/dL Globulin (2.0-3.5) g/dL Albumin/Globulin Ratio (1.3-2.8) Amylase (25-115) U/L Lipase (73-393) U/L Urine Color YELLOW Urine Appearance CLEAR Urine pH 5.5 (5.0-8.0) Ur Specific [place] >= 1.030 (1.001-1.035) Urine Protein 30 (NEGATIVE) mg/dL Urine Glucose (UA) NEGATIVE (NEGATIVE) mg/dL Urine Ketones 40 H (NEGATIVE) mg/dL Urine Occult Blood SMALL H (NEGATIVE) Urine Nitrite NEGATIVE (NEGATIVE) Urine Bilirubin NEGATIVE (NEGATIVE) Urine Urobilinogen 0.2 (<2.0) EU/dL Ur Leukocyte Esterase NEGATIVE (NEGATIVE) Urine RBC 0-1 (0-2/HPF) Urine WBC 0-1 (0-5/HPF) Ur Epithelial Cells RARE (NONE-FEW) Urine Bacteria RARE (NEGATIVE) Urine Opiates Screen NEGATIVE (NEGATIVE) Ur Oxycodone Screen NEGATIVE (NEGATIVE) Urine Methadone Screen NEGATIVE (NEGATIVE) Ur Barbiturates Screen NEGATIVE (NEGATIVE) Ur Phencyclidine Scrn NEGATIVE (NEGATIVE) Ur Amphetamine Screen NEGATIVE (NEGATIVE) U Methamphetamines Scrn NEGATIVE (NEGATIVE) U Benzodiazepines Scrn NEGATIVE (NEGATIVE) U Cocaine Metab Screen NEGATIVE (NEGATIVE) U Marijuana (THC) Screen POSITIVE (NEGATIVE) H. pylori IgG Antibody (NEG) Result Diagrams: 11/12/17 14:10 11/12/17 14:10 [place] Results Last 24 hrs: Microbiology 11/12/17 17:40 Anaerobic Blood Culture - Final Blood - Venous Problem List Initiated/Reviewed/Updated: Yes Orders Last 24hrs: Active Orders 24 hr Category Date Time Status Admission Status [Patient Status] [ADT] Stat ADT 11/12/17 18:17 Active CIWAA Assessment [RC] ASDIRECTED Care 11/12/17 19:20 Active Cardiac Monitoring [RC] CONTINUOUS Care 11/12/17 19:21 Active Height and Weight [RC] UPON Care 11/12/17 19:20 Active Intake and Output [RC] QSHIFT Care 11/12/17 19:20 Active Oxygen Therapy [RC] PRN Care 11/12/17 19:20 Active Up With Assistance [RC] ASDIRECTED Care 11/12/17 19:20 Active VTE/DVT Education [RC] PER UNIT ROUTINE Care 11/12/17 19:20 Active Vital Signs [RC] Q4H Care 11/12/17 19:20 Active Nothing per Oral Now Diet [DIET] Diet 11/12/17 Breakfast Active Abdomen Pelvis w Cont [CT] Stat Exams 11/12/17 13:48 Taken Head wo Cont [CT] Stat Exams 11/12/17 13:59 Taken BLOOD GAS VENOUS [BG] Stat Lab 11/12/17 19:32 Ordered CBC WITH AUTO DIFF [HEME] AM Lab 11/13/17 05:11 Ordered COMPREHENSIVE METABOLIC PN,CMP [CHEM] AM Lab 11/13/17 05:11 Ordered CRP [C-REACTIVE PROTEIN] [CHEM] Routine Lab 11/12/17 14:10 Received CULTURE BLOOD [BC] Stat Lab 11/12/17 17:40 Results CULTURE BLOOD [BC] Stat Lab 11/12/17 18:02 Received DRUG SCREEN, URINE [URCHEM] Stat Lab 11/12/17 15:41 Ordered ETHANOL BLOOD MEDICAL [CHEM] Stat Lab 11/12/17 14:10 Received LACTIC ACID,WHOLE BLOOD [BG] Stat Lab 11/12/17 18:53 Ordered MAGNESIUM [CHEM] Routine Lab 11/12/17 14:10 Received PHOSPHORUS [CHEM] Routine Lab 11/12/17 14:10 Received SEDIMENTATION RATE AUTO [HEME] Routine Lab 11/12/17 14:10 Received UA W/MICROSCOPIC [URIN] Stat Lab 11/12/17 15:41 Ordered Enoxaparin [Lovenox] Med 11/12/17 20:00 Active 40 mg SUBCUT Q24H Folic Acid Med 11/12/17 19:30 Active 1 mg SUBCUT DAILY HYDROmorphone [Dilaudid] Med 11/12/17 19:20 Active 1 mg IVPUSH Q2H PRN LORazepam [Ativan] Med 11/12/17 19:20 Active See Protocol IM Q4H PRN Lactated Ringers [Ringers, Lactated] 1,000 ml Med 11/12/17 19:30 Active IV ASDIRECTED Morphine Med 11/12/17 19:20 Active 2 mg IVPUSH Q2H PRN Ondansetron [Zofran] Med 11/12/17 19:20 Active 4 mg IVPUSH Q4H PRN Pantoprazole [ProTONIX IV] Med 11/12/17 21:00 Active 40 mg IVPUSH Q12HR Promethazine [Phenergan] Med 11/12/17 19:20 Active 25 mg IM Q4H PRN Sodium Chloride 0.9% [Normal Saline] 1,000 ml Med 11/12/17 16:56 Active IV STAT Sodium Chloride 0.9% [Saline Flush] Med 11/12/17 19:20 Active 10 ml FLUSH ASDIRECTED PRN Sodium Chloride 0.9% [Saline Flush] Med 11/12/17 19:20 Active 2.5 ml FLUSH ASDIRECTED PRN Thiamine [Vitamin B-1] Med 11/12/17 19:30 Active 100 mg IVPUSH DAILY Blood Culture x2 Reflex Set [OM.PC] Stat Oth 11/12/17 17:01 Ordered Peripheral IV Insertion Adult [OM.PC] Routine Oth 11/12/17 19:20 Ordered Saline Lock Insert [OM.PC] Routine Oth 11/12/17 19:20 Ordered Sequential Compression Device [OM.PC] Per Unit Routine Oth 11/12/17 19:21 Ordered Resuscitation Status Routine Resus Stat 11/12/17 19:20 Ordered Medication Orders Enoxaparin Sodium (Lovenox) 40 mg SUBCUT Q24H MICHELLE Folic Acid (Folic Acid) 1 mg SUBCUT DAILY MICHELLE Hydromorphone HCl (Dilaudid) 1 mg IVPUSH Q2H PRN PRN Reason: Pain (severe 7-10) Sodium Chloride (Normal Saline) 1,000 mls @ 125 mls/hr IV STAT ONE Stop: 11/13/17 00:55 Last Admin: 11/12/17 17:56 Dose: 125 mls/hr Lactated Ringer's (Ringers, Lactated) 1,000 mls @ 125 mls/hr IV ASDIRECTED MICHELLE Lorazepam (Ativan) 0 mg IM Q4H PRN; Protocol PRN Reason: Agitation Morphine Sulfate (Morphine) 2 mg IVPUSH Q2H PRN PRN Reason: Pain (severe 7-10) Stop: 03/30/18 19:22 Ondansetron HCl (Zofran) 4 mg IVPUSH Q4H PRN PRN Reason: Nausea/Vomiting Pantoprazole Sodium (Protonix Iv) 40 mg IVPUSH Q12HR MICHELLE Promethazine HCl (Phenergan) 25 mg IM Q4H PRN PRN Reason: Nausea/Vomiting Sodium Chloride (Saline Flush) 10 ml FLUSH ASDIRECTED PRN PRN Reason: Keep Vein Open Sodium Chloride (Saline Flush) 2.5 ml FLUSH ASDIRECTED PRN PRN Reason: Keep Vein Open Thiamine HCl (Vitamin B-1) 100 mg IVPUSH DAILY [facility] Assessment/Plan Comment:: This is a 27-year-old male who is being admitted secondary to intractable nausea and vomiting with possible mild episodes of bleeding due to the severe wrenching most likely etiology is alcohol induced vomiting. Patient is being admitted under observation in the ICU with Phenergan and Zofran for nausea control. He will be placed on Protonix 40 mg twice a day for possible peptic ulcer disease versus stress induced ulcers. CBC, CMP, magnesium , phosphorus, lactic acid, ethanol level, VBG have been ordered. Patient does have an elevated leukocytosis however UA is negative, CT abdomen pelvis is negative, chest x-ray is negative, CT of head is negative likely etiology for the elevated leukocytosis is reactive secondary to the ongoing process of severe wrenching and vomiting and possibly some alcohol intoxication. CIWA protocols in place along with Ativan for possible withdrawal type symptoms. Shall replace electrolytes that are abnormal, shall reassess the patient in the a.m. for possible discharge if patient no longer having any nausea/vomiting, no sudden drop in hemoglobin or episodes of bloody vomitus. Patient admitted to observation anticipated length of stay less than 2 midnights. <Abner Foster - Last Filed: 11/13/17 08:54> H&P History of Present Illness - General Admit Problem/Dx: Admission Diagnosis/Problem Admission Diagnosis/Problem Dehydration Exam - Vital Signs Vital Signs: Last Vital Signs Temp 97.9 F 11/13/17 08:00 Pulse 86 11/13/17 08:00 Resp 20 11/13/17 08:00 BP 109/74 11/13/17 08:00 Pulse Ox 99 11/13/17 08:00 - Patient Data Lab Results Last 24 hrs: Laboratory Results - last 24 hr 11/12/17 11/12/17 11/12/17 Range/Units 14:10 14:10 14:10 WBC 26.03 H (4.0-11.0) K/uL RBC 5.87 (4.50-5.90) M/uL Hgb 17.9 H (13.0-17.0) g/dL Hct 49.7 (38.0-50.0) % MCV 84.7 (80.0-98.0) fL MCH 30.5 (27.0-32.0) pg MCHC 36.0 (31.0-37.0) g/dL RDW Std Deviation 40.4 (28.0-62.0) fl RDW Coeff of Kathryn 13 (11.0-15.0) % Plt Count 340 (150-400) K/uL MPV 9.80 (7.40-12.00) fL Neut % (Auto) (48.0-80.0) % Lymph % (Auto) (16.0-40.0) % [place] % (Auto) (0.0-15.0) % Eos % (Auto) (0.0-7.0) % Baso % (Auto) (0.0-1.5) % Neut # (Auto) (1.4-5.7) K/uL Lymph # (Auto) (0.6-2.4) K/uL [place] # (Auto) (0.0-0.8) K/uL Eos # (Auto) (0.0-0.7) K/uL Baso # (Auto) (0.0-0.1) K/uL Add Manual Diff YES Neutrophils % (Manual) 90 H (48.0-80.0) % Band Neutrophils % 4 % Lymphocytes % (Manual) 3 L (16.0-40.0) % Monocytes % (Manual) 3 (0.0-15.0) % Nucleated RBC % 0.0 /100WBC Absolute Seg Neuts 23.4 H (1.4-5.7) Band Neutrophils # 1.0 Lymphocytes # (Manual) 0.8 (0.6-2.4) Monocytes # (Manual) 0.8 (0.0-0.8) Nucleated RBCs # 0 K/uL ESR (0-14) mm/hr VBG pH (7.31-7.41) VBG pCO2 (35-45) mmHG VBG pO2 (30-40) mmHG VBG HCO3 (22-30) mEq/L VBG Total CO2 (41-51) mmol/L VBG Base Excess (-3.0-3.0) Lactate (0.20-2.00) mmol/L Sodium 137 (136-148) mmol/L Potassium 4.1 (3.5-5.1) mmol/L Chloride 98 (98-107) mmol/L Carbon Dioxide 13.2 L (21.0-32.0) mmol/L BUN 20 H (7.0-18.0) mg/dL Creatinine 1.4 H (0.8-1.3) mg/dL Est Cr Clr Drug Dosing 68.33 mL/min Estimated GFR (MDRD) > 60.0 ml/min Glucose 127 H (74-106) mg/dL Calcium 9.8 (8.5-10.1) mg/dL Phosphorus (2.6-4.7) mg/dL Magnesium (1.5-2.0) mg/dL Total Bilirubin 0.5 (0.2-1.0) mg/dL AST 36 (15-37) IU/L ALT 42 (14-63) IU/L Alkaline Phosphatase 69 (46-116) U/L C-Reactive Protein (0.00-0.90) mg/dL Total Protein 8.5 H (6.4-8.2) g/dL Albumin 5.2 H (3.4-5.0) g/dL Globulin 3.3 (2.0-3.5) g/dL Albumin/Globulin Ratio 1.6 (1.3-2.8) Amylase 40 (25-115) U/L Lipase 56 L (73-393) U/L Urine Color Urine Appearance Urine pH (5.0-8.0) Ur Specific [place] (1.001-1.035) Urine Protein (NEGATIVE) mg/dL Urine Glucose (UA) (NEGATIVE) mg/dL Urine Ketones (NEGATIVE) mg/dL Urine Occult Blood (NEGATIVE) Urine Nitrite (NEGATIVE) Urine Bilirubin (NEGATIVE) Urine Urobilinogen (<2.0) EU/dL Ur Leukocyte Esterase (NEGATIVE) Urine RBC (0-2/HPF) Urine WBC (0-5/HPF) Ur Epithelial Cells (NONE-FEW) Urine Bacteria (NEGATIVE) Urine Opiates Screen (NEGATIVE) Ur Oxycodone Screen (NEGATIVE) Urine Methadone Screen (NEGATIVE) Ur Barbiturates Screen (NEGATIVE) Ur Phencyclidine Scrn (NEGATIVE) Ur Amphetamine Screen (NEGATIVE) U Methamphetamines Scrn (NEGATIVE) U Benzodiazepines Scrn (NEGATIVE) U Cocaine Metab Screen (NEGATIVE) U Marijuana (THC) Screen (NEGATIVE) Ethyl Alcohol mg/dL H. pylori IgG Antibody NEGATIVE (NEG) 11/12/17 11/12/17 11/12/17 Range/Units 14:10 14:10 14:10 WBC (4.0-11.0) K/uL RBC (4.50-5.90) M/uL Hgb (13.0-17.0) g/dL Hct (38.0-50.0) % MCV (80.0-98.0) fL MCH (27.0-32.0) pg MCHC (31.0-37.0) g/dL RDW Std Deviation (28.0-62.0) fl RDW Coeff of Kathryn (11.0-15.0) % Plt Count (150-400) K/uL MPV (7.40-12.00) fL Neut % (Auto) (48.0-80.0) % Lymph % (Auto) (16.0-40.0) % [place] % (Auto) (0.0-15.0) % Eos % (Auto) (0.0-7.0) % Baso % (Auto) (0.0-1.5) % Neut # (Auto) (1.4-5.7) K/uL Lymph # (Auto) (0.6-2.4) K/uL [place] # (Auto) (0.0-0.8) K/uL Eos # (Auto) (0.0-0.7) K/uL Baso # (Auto) (0.0-0.1) K/uL Add Manual Diff Neutrophils % (Manual) (48.0-80.0) % Band Neutrophils % % Lymphocytes % (Manual) (16.0-40.0) % Monocytes % (Manual) (0.0-15.0) % Nucleated RBC % /100WBC Absolute Seg Neuts (1.4-5.7) Band Neutrophils # Lymphocytes # (Manual) (0.6-2.4) Monocytes # (Manual) (0.0-0.8) Nucleated RBCs # K/uL ESR 1 (0-14) mm/hr VBG pH (7.31-7.41) VBG pCO2 (35-45) mmHG VBG pO2 (30-40) mmHG VBG HCO3 (22-30) mEq/L VBG Total CO2 (41-51) mmol/L VBG Base Excess (-3.0-3.0) Lactate (0.20-2.00) mmol/L Sodium (136-148) mmol/L Potassium (3.5-5.1) mmol/L Chloride (98-107) mmol/L Carbon Dioxide (21.0-32.0) mmol/L BUN (7.0-18.0) mg/dL Creatinine (0.8-1.3) mg/dL Est Cr Clr Drug Dosing mL/min Estimated GFR (MDRD) ml/min Glucose (74-106) mg/dL Calcium (8.5-10.1) mg/dL Phosphorus 5.7 H (2.6-4.7) mg/dL Magnesium 1.3 L (1.5-2.0) mg/dL Total Bilirubin (0.2-1.0) mg/dL AST (15-37) IU/L ALT (14-63) IU/L Alkaline Phosphatase (46-116) U/L C-Reactive Protein 0.80 (0.00-0.90) mg/dL Total Protein (6.4-8.2) g/dL Albumin (3.4-5.0) g/dL Globulin (2.0-3.5) g/dL Albumin/Globulin Ratio (1.3-2.8) Amylase (25-115) U/L Lipase (73-393) U/L Urine Color Urine Appearance Urine pH (5.0-8.0) Ur Specific [place] (1.001-1.035) Urine Protein (NEGATIVE) mg/dL Urine Glucose (UA) (NEGATIVE) mg/dL Urine Ketones (NEGATIVE) mg/dL Urine Occult Blood (NEGATIVE) Urine Nitrite (NEGATIVE) Urine Bilirubin (NEGATIVE) Urine Urobilinogen (<2.0) EU/dL Ur Leukocyte Esterase (NEGATIVE) Urine RBC (0-2/HPF) Urine WBC (0-5/HPF) Ur Epithelial Cells (NONE-FEW) Urine Bacteria (NEGATIVE) Urine Opiates Screen (NEGATIVE) Ur Oxycodone Screen (NEGATIVE) Urine Methadone Screen (NEGATIVE) Ur Barbiturates Screen (NEGATIVE) Ur Phencyclidine Scrn (NEGATIVE) Ur Amphetamine Screen (NEGATIVE) U Methamphetamines Scrn (NEGATIVE) U Benzodiazepines Scrn (NEGATIVE) U Cocaine Metab Screen (NEGATIVE) U Marijuana (THC) Screen (NEGATIVE) Ethyl Alcohol 44 mg/dL H. pylori IgG Antibody (NEG) 11/12/17 11/12/17 11/12/17 Range/Units 15:41 15:41 19:44 WBC (4.0-11.0) K/uL RBC (4.50-5.90) M/uL Hgb (13.0-17.0) g/dL Hct (38.0-50.0) % MCV (80.0-98.0) fL MCH (27.0-32.0) pg MCHC (31.0-37.0) g/dL RDW Std Deviation (28.0-62.0) fl RDW Coeff of Kathryn (11.0-15.0) % Plt Count (150-400) K/uL MPV (7.40-12.00) fL Neut % (Auto) (48.0-80.0) % Lymph % (Auto) (16.0-40.0) % [place] % (Auto) (0.0-15.0) % Eos % (Auto) (0.0-7.0) % Baso % (Auto) (0.0-1.5) % Neut # (Auto) (1.4-5.7) K/uL Lymph # (Auto) (0.6-2.4) K/uL [place] # (Auto) (0.0-0.8) K/uL Eos # (Auto) (0.0-0.7) K/uL Baso # (Auto) (0.0-0.1) K/uL Add Manual Diff Neutrophils % (Manual) (48.0-80.0) % Band Neutrophils % % Lymphocytes % (Manual) (16.0-40.0) % Monocytes % (Manual) (0.0-15.0) % Nucleated RBC % /100WBC Absolute Seg Neuts (1.4-5.7) Band Neutrophils # Lymphocytes # (Manual) (0.6-2.4) Monocytes # (Manual) (0.0-0.8) Nucleated RBCs # K/uL ESR (0-14) mm/hr VBG pH (7.31-7.41) VBG pCO2 (35-45) mmHG VBG pO2 (30-40) mmHG VBG HCO3 (22-30) mEq/L VBG Total CO2 (41-51) mmol/L VBG Base Excess (-3.0-3.0) Lactate 1.7 (0.20-2.00) mmol/L Sodium (136-148) mmol/L Potassium (3.5-5.1) mmol/L Chloride (98-107) mmol/L Carbon Dioxide (21.0-32.0) mmol/L BUN (7.0-18.0) mg/dL Creatinine (0.8-1.3) mg/dL Est Cr Clr Drug Dosing mL/min Estimated GFR (MDRD) ml/min Glucose (74-106) mg/dL Calcium (8.5-10.1) mg/dL Phosphorus (2.6-4.7) mg/dL Magnesium (1.5-2.0) mg/dL Total Bilirubin (0.2-1.0) mg/dL AST (15-37) IU/L ALT (14-63) IU/L Alkaline Phosphatase (46-116) U/L C-Reactive Protein (0.00-0.90) mg/dL Total Protein (6.4-8.2) g/dL Albumin (3.4-5.0) g/dL Globulin (2.0-3.5) g/dL Albumin/Globulin Ratio (1.3-2.8) Amylase (25-115) U/L Lipase (73-393) U/L Urine Color YELLOW Urine Appearance CLEAR Urine pH 5.5 (5.0-8.0) Ur Specific [place] >= 1.030 (1.001-1.035) Urine Protein 30 (NEGATIVE) mg/dL Urine Glucose (UA) NEGATIVE (NEGATIVE) mg/dL Urine Ketones 40 H (NEGATIVE) mg/dL Urine Occult Blood SMALL H (NEGATIVE) Urine Nitrite NEGATIVE (NEGATIVE) Urine Bilirubin NEGATIVE (NEGATIVE) Urine Urobilinogen 0.2 (<2.0) EU/dL Ur Leukocyte Esterase NEGATIVE (NEGATIVE) Urine RBC 0-1 (0-2/HPF) Urine WBC 0-1 (0-5/HPF) Ur Epithelial Cells RARE (NONE-FEW) Urine Bacteria RARE (NEGATIVE) Urine Opiates Screen NEGATIVE (NEGATIVE) Ur Oxycodone Screen NEGATIVE (NEGATIVE) Urine Methadone Screen NEGATIVE (NEGATIVE) Ur Barbiturates Screen NEGATIVE (NEGATIVE) Ur Phencyclidine Scrn NEGATIVE (NEGATIVE) Ur Amphetamine Screen NEGATIVE (NEGATIVE) U Methamphetamines Scrn NEGATIVE (NEGATIVE) U Benzodiazepines Scrn NEGATIVE (NEGATIVE) U Cocaine Metab Screen NEGATIVE (NEGATIVE) U Marijuana (THC) Screen POSITIVE (NEGATIVE) Ethyl Alcohol mg/dL H. pylori IgG Antibody (NEG) 11/12/17 11/13/17 11/13/17 Range/Units 19:44 06:10 06:10 WBC 19.49 H (4.0-11.0) K/uL RBC 5.06 (4.50-5.90) M/uL Hgb 15.3 (13.0-17.0) g/dL Hct 42.4 (38.0-50.0) % MCV 83.8 (80.0-98.0) fL MCH 30.2 (27.0-32.0) pg MCHC 36.1 (31.0-37.0) g/dL RDW Std Deviation 39.0 (28.0-62.0) fl RDW Coeff of Kathryn 13 (11.0-15.0) % Plt Count 303 (150-400) K/uL MPV 9.30 (7.40-12.00) fL Neut % (Auto) 76.0 (48.0-80.0) % Lymph % (Auto) 9.1 L (16.0-40.0) % [place] % (Auto) 14.6 (0.0-15.0) % Eos % (Auto) 0.2 (0.0-7.0) % Baso % (Auto) 0.1 (0.0-1.5) % Neut # (Auto) 14.8 H (1.4-5.7) K/uL Lymph # (Auto) 1.8 (0.6-2.4) K/uL [place] # (Auto) 2.9 H (0.0-0.8) K/uL Eos # (Auto) 0.0 (0.0-0.7) K/uL Baso # (Auto) 0.0 (0.0-0.1) K/uL Add Manual Diff Neutrophils % (Manual) (48.0-80.0) % Band Neutrophils % % Lymphocytes % (Manual) (16.0-40.0) % Monocytes % (Manual) (0.0-15.0) % Nucleated RBC % 0.0 /100WBC Absolute Seg Neuts (1.4-5.7) Band Neutrophils # Lymphocytes # (Manual) (0.6-2.4) Monocytes # (Manual) (0.0-0.8) Nucleated RBCs # 0 K/uL ESR (0-14) mm/hr VBG pH 7.34 (7.31-7.41) VBG pCO2 32 L (35-45) mmHG VBG pO2 56 H (30-40) mmHG VBG HCO3 17 L (22-30) mEq/L VBG Total CO2 15 L (41-51) mmol/L VBG Base Excess -7.2 L (-3.0-3.0) Lactate (0.20-2.00) mmol/L Sodium 131 L (136-148) mmol/L Potassium 4.0 (3.5-5.1) mmol/L Chloride 101 (98-107) mmol/L Carbon Dioxide 18.7 L (21.0-32.0) mmol/L BUN 15 (7.0-18.0) mg/dL Creatinine 0.8 (0.8-1.3) mg/dL Est Cr Clr Drug Dosing 119.58 mL/min Estimated GFR (MDRD) > 60.0 ml/min Glucose 102 (74-106) mg/dL Calcium 8.3 L (8.5-10.1) mg/dL Phosphorus (2.6-4.7) mg/dL Magnesium (1.5-2.0) mg/dL Total Bilirubin 0.8 (0.2-1.0) mg/dL AST 44 H (15-37) IU/L ALT 34 (14-63) IU/L Alkaline Phosphatase 51 (46-116) U/L C-Reactive Protein (0.00-0.90) mg/dL Total Protein 6.6 (6.4-8.2) g/dL Albumin 3.9 (3.4-5.0) g/dL Globulin 2.7 (2.0-3.5) g/dL Albumin/Globulin Ratio 1.4 (1.3-2.8) Amylase (25-115) U/L Lipase (73-393) U/L Urine Color Urine Appearance Urine pH (5.0-8.0) Ur Specific [place] (1.001-1.035) Urine Protein (NEGATIVE) mg/dL Urine Glucose (UA) (NEGATIVE) mg/dL Urine Ketones (NEGATIVE) mg/dL Urine Occult Blood (NEGATIVE) Urine Nitrite (NEGATIVE) Urine Bilirubin (NEGATIVE) Urine Urobilinogen (<2.0) EU/dL Ur Leukocyte Esterase (NEGATIVE) Urine RBC (0-2/HPF) Urine WBC (0-5/HPF) Ur Epithelial Cells (NONE-FEW) Urine Bacteria (NEGATIVE) Urine Opiates Screen (NEGATIVE) Ur Oxycodone Screen (NEGATIVE) Urine Methadone Screen (NEGATIVE) Ur Barbiturates Screen (NEGATIVE) Ur Phencyclidine Scrn (NEGATIVE) Ur Amphetamine Screen (NEGATIVE) U Methamphetamines Scrn (NEGATIVE) U Benzodiazepines Scrn (NEGATIVE) U Cocaine Metab Screen (NEGATIVE) U Marijuana (THC) Screen (NEGATIVE) Ethyl Alcohol mg/dL H. pylori IgG Antibody (NEG) Result Diagrams: 11/13/17 06:10 11/13/17 06:10 [place] Results Last 24 hrs: Microbiology 11/12/17 17:40 Anaerobic Blood Culture - Final Blood - Venous Orders Last 24hrs: Active Orders 24 hr Category Date Time Status Admission Status [Patient Status] [ADT] Stat ADT 11/12/17 18:17 Active CIWAA Assessment [RC] Q4H Care 11/12/17 19:20 Active Cardiac Monitoring [RC] CONTINUOUS Care 11/12/17 19:21 Inactive Height and Weight [RC] UPON Care 11/12/17 19:20 Active Intake and Output [RC] Q12H Care 11/12/17 19:20 Active Oxygen Therapy [RC] PRN Care 11/12/17 19:20 Active Up With Assistance [RC] ASDIRECTED Care 11/12/17 19:20 Active Vital Signs [RC] Q4H Care 11/12/17 19:20 Active Abdomen Pelvis w Cont [CT] Stat Exams 11/12/17 13:48 Taken Head wo Cont [CT] Stat Exams 11/12/17 13:59 Taken CULTURE BLOOD [BC] Stat Lab 11/12/17 17:40 Results CULTURE BLOOD [BC] Stat Lab 11/12/17 18:02 Received DRUG SCREEN, URINE [URCHEM] Stat Lab 11/12/17 15:41 Ordered MAGNESIUM [CHEM] Routine Lab 11/13/17 08:29 Ordered UA W/MICROSCOPIC [URIN] Stat Lab 11/12/17 15:41 Ordered Enoxaparin [Lovenox] Med 11/12/17 20:00 Active 40 mg SUBCUT Q24H Folic Acid Med 11/12/17 19:30 Active 1 mg SUBCUT DAILY HYDROmorphone [Dilaudid] Med 11/13/17 07:47 Active 1 mg IVPUSH Q2H PRN LORazepam [Ativan] Med 11/12/17 19:20 Active See Protocol IM Q4H PRN Lactated Ringers [Ringers, Lactated] 1,000 ml Med 11/12/17 19:30 Active IV ASDIRECTED Morphine Med 11/12/17 19:20 Active 2 mg IVPUSH Q2H PRN Ondansetron [Zofran] Med 11/12/17 19:20 Active 4 mg IVPUSH Q4H PRN Pantoprazole [ProTONIX IV] Med 11/12/17 21:00 Active 40 mg IVPUSH Q12HR Promethazine [Phenergan] Med 11/12/17 19:20 Active 25 mg IM Q4H PRN Sodium Chloride 0.9% [Saline Flush] Med 11/12/17 19:20 Active 10 ml FLUSH ASDIRECTED PRN Sodium Chloride 0.9% [Saline Flush] Med 11/12/17 19:20 Active 2.5 ml FLUSH ASDIRECTED PRN Thiamine [Vitamin B-1] Med 11/12/17 19:30 Active 100 mg IVPUSH DAILY Blood Culture x2 Reflex Set [OM.PC] Stat Oth 11/12/17 17:01 Ordered Peripheral IV Insertion Adult [OM.PC] Routine Oth 11/12/17 19:20 Ordered Saline Lock Insert [OM.PC] Routine Oth 11/12/17 19:20 Ordered Sequential Compression Device [OM.PC] Per Unit Routine Oth 11/12/17 19:21 Ordered Resuscitation Status Routine Resus Stat 11/12/17 19:20 Ordered Medication Orders Enoxaparin Sodium (Lovenox) 40 mg SUBCUT Q24H [facility] Last Admin: 11/12/17 21:06 Dose: 40 mg Folic Acid (Folic Acid) 1 mg SUBCUT DAILY [facility] Last Admin: 11/12/17 21:05 Dose: 1 mg Hydromorphone HCl (Dilaudid) 1 mg IVPUSH Q2H PRN PRN Reason: Pain (severe 7-10) Lactated Ringer's (Ringers, Lactated) 1,000 mls @ 125 mls/hr IV ASDIRECTED [facility] Last Admin: 11/13/17 01:18 Dose: 125 mls/hr Lorazepam (Ativan) 0 mg IM Q4H PRN; Protocol PRN Reason: Agitation Morphine Sulfate (Morphine) 2 mg IVPUSH Q2H PRN PRN Reason: Pain (severe 7-10) Stop: 11/13/17 19:22 Last Admin: 11/13/17 04:39 Dose: 2 mg Admin: 11/12/17 21:07 Dose: 2 mg Ondansetron HCl (Zofran) 4 mg IVPUSH Q4H PRN PRN Reason: Nausea/Vomiting Last Admin: 11/13/17 04:09 Dose: 4 mg Admin: 11/12/17 21:05 Dose: 4 mg Pantoprazole Sodium (Protonix Iv) 40 mg IVPUSH Q12HR [facility] Last Admin: 11/12/17 21:05 Dose: 40 mg Promethazine HCl (Phenergan) 25 mg IM Q4H PRN PRN Reason: Nausea/Vomiting Sodium Chloride (Saline Flush) 10 ml FLUSH ASDIRECTED PRN PRN Reason: Keep Vein Open Sodium Chloride (Saline Flush) 2.5 ml FLUSH ASDIRECTED PRN PRN Reason: Keep Vein Open Thiamine HCl (Vitamin B-1) 100 mg IVPUSH DAILY [facility] Last Admin: 11/12/17 21:08 Dose: 100 mg - Free Text/Narrative Note: I performed a history and physical examination of the patient and discussed patient's management with the resident. I reviewed the resident's note and agree with the documentation findings and plan of care below. Attending provider: Abner Foster MD
[2017-11-12] MEDS ORDERED: Magnesium Sulfate/Water 2 GM in Premix Bag 1 BAG IV ONE (20:17)
[2017-11-12] MEDS: Ondansetron 4 MG/2 ML SDV IVPUSH PRN (21:05)
[2017-11-12] MEDS: Pantoprazole 40 MG Vial IVPUSH SCH (21:05)
[2017-11-12] MEDS: Folic Acid 50 MG/10 ML MDV SUBCUT SCH (21:05)
[2017-11-12] MEDS: Enoxaparin 40 MG/0.4 ML Syringe SUBCUT SCH (21:06)
[2017-11-12] MEDS: Morphine 4 MG/ML Syringe IVPUSH PRN (21:07)
[2017-11-12] MEDS: Thiamine 200 MG/2 ML MDV IVPUSH SCH (21:08)
[2017-11-13] MEDS: Lactated Ringers 1,000 ML IV SCH ×3 (01:18→17:01)
[2017-11-13] MEDS: Ondansetron 4 MG/2 ML SDV IVPUSH PRN ×3 (04:09→17:00)
[2017-11-13] MEDS: Morphine 4 MG/ML Syringe IVPUSH PRN ×3 (04:09→09:38)
[2017-11-13 06:50] LABS: CHLORIDE,CL 101 mmol/L (98-107); SODIUM,NA 131 mmol/L (136-148)
[2017-11-13] MEDS ORDERED: HYDROmorphone 1 MG/ML Syringe IVPUSH PRN (07:47)
[2017-11-13] MEDS: Pantoprazole 40 MG Vial IVPUSH SCH ×2 (09:07→20:59)
[2017-11-13] MEDS: Folic Acid 50 MG/10 ML MDV SUBCUT SCH (09:07)
[2017-11-13] MEDS: Thiamine 200 MG/2 ML MDV IVPUSH SCH (09:18)
[2017-11-13] MEDS: LORazepam 2 MG/ML SDV IM PRN ×2 (09:37→21:07)
--- NOTE | 2017-11-13 18:07 | CT ---
EXAM DATE: 11/12/17 PATIENT'S AGE: 27 Patient: FRANK VARGAS Facility: [place], [place] Site . Site : 1990 Study: CT Head WO CONT [id number]/29/2018 5:29:54 PM Ordering Physician: Doctor Forbes Final Report: INDICATION: PAIN TECHNIQUE: CT Head without contrast. COMPARISON: None. FINDINGS: There is no sign of intracranial hemorrhage or mass effect. The pizano-white differentiation is preserved. 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 No acute disease of the visualized paranasal sinuses and mastoid air cells. No fracture evident. No scalp hematoma/ laceration. IMPRESSION: No acute intracranial process. Dictated by: Bishnu Young MD @ 11/12/2017 17:46:19 (Electronic Signature) Report Signed by Proxy. [facility]
--- NOTE | 2017-11-13 18:08 | CT ---
EXAM DATE: 11/12/17 PATIENT'S AGE: 27 Patient: FRANK VARGAS Facility: [place], [place] Site . Site : 1990 Study: CT Abdomen/Pelvis W CONT [id number]/29/2018 5:34:48 PM Ordering Physician: Doctor Forbes Final Report: INDICATION: ABDOMINAL PAIN, PT STATES THROWING UP RED AND BLACK BLOOD SINCE 0200HRS TECHNIQUE: CT abdomen and pelvis acquired with IV contrast. 85 ML ISOVUE 370 COMPARISON: None FINDINGS: Lower chest: Unremarkable. Liver: Diffuse fatty infiltration of the liver Spleen: Unremarkable. Pancreas: Unremarkable. Gallbladder and bile ducts: Unremarkable. Kidneys: Unremarkable. Adrenal glands: Unremarkable. GI tract: Unremarkable. Appendix is normal. Vascular structures: Negative. No sign of aneurysm. Lymph nodes: Unremarkable. Miscellaneous: Unremarkable. No free air or significant free fluid. Pelvic Organs: Unremarkable. Bones: Unremarkable for age. IMPRESSION: No acute abnormality of the abdomen and pelvis. Dictated by Bishnu Young MD @ 11/12/2017 5:54:23 PM Dictated by: Bishnu Young MD @ 11/12/2017 17:55:14 (Electronic Signature) Report Signed by Proxy. [facility]
[2017-11-13] MEDS: Enoxaparin 40 MG/0.4 ML Syringe SUBCUT SCH (20:58)
[2017-11-14] MEDS: Ondansetron 4 MG/2 ML SDV IVPUSH PRN (00:42)
[2017-11-14] MEDS: Lactated Ringers 1,000 ML IV SCH ×2 (00:46→08:27)
--- NOTE | 2017-11-14 01:46 | PCM.PN ---
- General Info Date of Service: 11/13/17 Subjective Update: Patient still continues to have retching/vomiting. She is not having any withdrawal symptoms, he still is having abdominal pain secondary to the regimen. He does feel slightly better than yesterday though. No episodes of - Patient Data Vitals - Most Recent: Last Vital Signs Temp 37.4 C 11/13/17 23:00 Pulse 70 11/13/17 23:00 Resp 19 11/13/17 23:00 BP 118/63 11/13/17 23:00 Pulse Ox 99 11/13/17 23:00 Weight - Most Recent: 68.8 kg I&O - Last 24 Hours: Intake & Output 11/13/17 11/13/17 11/14/17 14:59 22:59 06:59 Intake Total 80 967 Output Total 0 Balance 80 967 Lab Results Last 24 Hours: Laboratory Results - last 24 hr 11/13/17 11/13/17 11/13/17 Range/Units 06:10 06:10 07:30 WBC 19.49 H (4.0-11.0) K/uL RBC 5.06 (4.50-5.90) M/uL Hgb 15.3 (13.0-17.0) g/dL Hct 42.4 (38.0-50.0) % MCV 83.8 (80.0-98.0) fL MCH 30.2 (27.0-32.0) pg MCHC 36.1 (31.0-37.0) g/dL RDW Std Deviation 39.0 (28.0-62.0) fl RDW Coeff of Kathryn 13 (11.0-15.0) % Plt Count 303 (150-400) K/uL MPV 9.30 (7.40-12.00) fL Neut % (Auto) 76.0 (48.0-80.0) % Lymph % (Auto) 9.1 L (16.0-40.0) % [place] % (Auto) 14.6 (0.0-15.0) % Eos % (Auto) 0.2 (0.0-7.0) % Baso % (Auto) 0.1 (0.0-1.5) % Neut # (Auto) 14.8 H (1.4-5.7) K/uL Lymph # (Auto) 1.8 (0.6-2.4) K/uL [place] # (Auto) 2.9 H (0.0-0.8) K/uL Eos # (Auto) 0.0 (0.0-0.7) K/uL Baso # (Auto) 0.0 (0.0-0.1) K/uL Nucleated RBC % 0.0 /100WBC Nucleated RBCs # 0 K/uL Sodium 131 L (136-148) mmol/L Potassium 4.0 (3.5-5.1) mmol/L Chloride 101 (98-107) mmol/L Carbon Dioxide 18.7 L (21.0-32.0) mmol/L BUN 15 (7.0-18.0) mg/dL Creatinine 0.8 (0.8-1.3) mg/dL Est Cr Clr Drug Dosing 119.58 mL/min Estimated GFR (MDRD) > 60.0 ml/min Glucose 102 (74-106) mg/dL Calcium 8.3 L (8.5-10.1) mg/dL Magnesium 1.7 (1.5-2.0) mg/dL Total Bilirubin 0.8 (0.2-1.0) mg/dL AST 44 H (15-37) IU/L ALT 34 (14-63) IU/L Alkaline Phosphatase 51 (46-116) U/L Total Protein 6.6 (6.4-8.2) g/dL Albumin 3.9 (3.4-5.0) g/dL Globulin 2.7 (2.0-3.5) g/dL Albumin/Globulin Ratio 1.4 (1.3-2.8) [place] Results Last 24 Hours: Microbiology 11/12/17 18:02 Aerobic Blood Culture - Preliminary Blood - Venous - Lab Draw NO GROWTH AFTER 1 DAY Anaerobic Blood Culture - Preliminary NO GROWTH AFTER 1 DAY 11/12/17 17:40 Aerobic Blood Culture - Preliminary Blood - Venous NO GROWTH AFTER 1 DAY Anaerobic Blood Culture - Final Med Orders - Current: Current Medications Enoxaparin Sodium (Lovenox) 40 mg SUBCUT Q24H [facility] Last Admin: 11/13/17 20:58 Dose: 40 mg Folic Acid (Folic Acid) 1 mg SUBCUT DAILY [facility] Last Admin: 11/13/17 09:07 Dose: 1 mg Hydromorphone HCl (Dilaudid) 1 mg IVPUSH Q2H PRN PRN Reason: Pain (severe 7-10) Lactated Ringer's (Ringers, Lactated) 1,000 mls @ 125 mls/hr IV ASDIRECTED [facility] Last Admin: 11/14/17 00:46 Dose: 125 mls/hr Lorazepam (Ativan) 0 mg IM Q4H PRN; Protocol PRN Reason: Agitation Last Admin: 11/13/17 21:07 Dose: 1 mg Ondansetron HCl (Zofran) 4 mg IVPUSH Q4H PRN PRN Reason: Nausea/Vomiting Last Admin: 11/14/17 00:42 Dose: 4 mg Pantoprazole Sodium (Protonix Iv) 40 mg IVPUSH Q12HR [facility] Last Admin: 11/13/17 20:59 Dose: 40 mg Promethazine HCl (Phenergan) 25 mg IM Q4H PRN PRN Reason: Nausea/Vomiting Sodium Chloride (Saline Flush) 10 ml FLUSH ASDIRECTED PRN PRN Reason: Keep Vein Open Sodium Chloride (Saline Flush) 2.5 ml FLUSH ASDIRECTED PRN PRN Reason: Keep Vein Open Thiamine HCl (Vitamin B-1) 100 mg IVPUSH DAILY [facility] Last Admin: 11/13/17 09:18 Dose: 100 mg Discontinued Medications Famotidine (Pepcid) 20 mg IVPUSH ONETIME ONE Stop: 11/12/17 14:00 Last Admin: 11/12/17 14:11 Dose: 20 mg Hydromorphone HCl (Dilaudid) 1 mg IVPUSH Q2H PRN PRN Reason: Pain (severe 7-10) Sodium Chloride (Normal Saline) 1,000 mls @ 999 mls/hr IV STAT ONE Stop: 11/12/17 14:48 Last Admin: 11/12/17 14:10 Dose: 999 mls/hr Sodium Chloride (Normal Saline) 1,000 mls @ 125 mls/hr IV STAT ONE Stop: 11/13/17 00:55 Last Admin: 11/12/17 17:56 Dose: 125 mls/hr Magnesium Sulfate 2 gm/ Premix 50 mls @ 25 mls/hr IV ONETIME ONE Stop: 11/12/17 22:16 Last Admin: 11/12/17 21:06 Dose: 25 mls/hr Iopamidol (Isovue Multipack-370 (76%)) 85 ml IVPUSH ONETIME STA Stop: 11/12/17 17:20 Last Admin: 11/12/17 17:30 Dose: 85 ml Morphine Sulfate (Morphine) 2 mg IVPUSH Q2H PRN PRN Reason: Pain (severe 7-10) Stop: 11/13/17 19:22 Last Admin: 11/13/17 09:38 Dose: 2 mg Ondansetron HCl (Zofran) 8 mg IVPUSH ONETIME ONE Stop: 11/12/17 14:00 Last Admin: 11/12/17 14:11 Dose: 8 mg Promethazine HCl (Phenergan) 25 mg IM ONETIME ONE Stop: 11/12/17 15:44 Last Admin: 11/12/17 16:04 Dose: 25 mg - Exam Quality Assessment: Supplemental Oxygen General: Alert, Oriented, Cooperative, Mild Distress, Moderate Distress Lungs: Clear to Auscultation, Normal Respiratory Effort Cardiovascular: Regular Rate, Regular Rhythm GI/Abdominal Exam: Tender Extremities: Normal Inspection, Normal Range of Motion, Non-Tender - Problem List Review Problem List Initiated/Reviewed/Updated: Yes - My Orders Last 24 Hours: My Active Orders 11/13/17 07:47 HYDROmorphone [Dilaudid] 1 mg IVPUSH Q2H PRN 11/14/17 05:11 CBC WITH AUTO DIFF [HEME] AM COMPREHENSIVE METABOLIC PN,CMP [CHEM] AM MAGNESIUM [CHEM] AM - Plan Plan:: This is a 27-year-old male who is being admitted secondary to intractable nausea and vomiting with possible mild episodes of bleeding due to the severe wrenching most likely etiology is alcohol induced vomiting. Patient is being admitted under observation in the ICU with Phenergan and Zofran for nausea control. He will be placed on Protonix 40 mg twice a day for possible peptic ulcer disease versus stress induced ulcers. CBC, CMP, magnesium , phosphorus, lactic acid, ethanol level, VBG have been ordered. Patient does have an elevated leukocytosis however UA is negative, CT abdomen pelvis is negative, chest x-ray is negative, CT of head is negative likely etiology for the elevated leukocytosis is reactive secondary to the ongoing process of severe wrenching and vomiting and possibly some alcohol intoxication. CIWA protocols in place along with Ativan for possible withdrawal type symptoms. Shall replace electrolytes that are abnormal, shall reassess the patient in the a.m. for possible discharge if patient no longer having any nausea/vomiting, no sudden drop in hemoglobin or episodes of bloody vomitus. Update 11/13/2017 Patient continued to have retching and vomiting episodes, he is still nothing by mouth due to inability to take an appropriate by mouth. Shall continue with symptomatic management of nausea and vomiting with Phenergan and Zofran. Pain on board for abdominal pain. Continue IV fluids. Patient admitted to observation anticipated length of stay less than 2 midnights.
[2017-11-14 06:54] LABS: CHLORIDE,CL 105 mmol/L (98-107); SODIUM,NA 141 mmol/L (136-148)
[2017-11-14] MEDS: Pantoprazole 40 MG Vial IVPUSH SCH (08:14)
[2017-11-14] MEDS: Folic Acid 50 MG/10 ML MDV SUBCUT SCH (08:17)
[2017-11-14] MEDS: Thiamine 200 MG/2 ML MDV IVPUSH SCH (08:26)
--- NOTE | 2017-11-14 12:02 | PCM.DCSUM1 ---
Discharge Summary - Discharge Data Discharge Date: 11/14/17 Discharge Disposition: Home, Self-Care 01 Condition: Good - Patient Summary/Data Hospital Course: Admission diagnosis: Alcoholic gastritis Hospital Course: 27 yo male who presented with intractable nausea and vomiting following episode of alcohol ingestion. He did have a fall and what appeared to be some blood tinged vomit. Laboratory work up was significant for a leukocytosis of 27,000 and a creatinine of 1.4. His CXR, abdominal CT and head CT were unremarkable. He was treated with IV fluids over two days with normalization of white count. His Hgb remained stable and no evidence of bleeding or withdrawals. He is requesting discharge home today. He was discharged home to have follow up with [facility]. - Patient Instructions Diet: Regular Diet as Tolerated - Discharge Plan Home Medications: Home Meds FLUoxetine HCl [Prozac] 20 mg DAILY 11/12/17 [History] cloNIDine [Catapres] 1 tab DAILY 11/12/17 [History] Patient Handouts: Dehydration, Adult, [id number], Abdominal Pain, Adult, Easy -to-Read Referrals: PCP,None [Primary Care Provider] - - Patient Data Vitals - Most Recent: Last Vital Signs Temp 36.2 C 11/14/17 07:00 Pulse 68 11/14/17 07:00 Resp 19 11/14/17 07:00 BP 113/68 11/14/17 07:00 Pulse Ox 98 11/14/17 07:00 Weight - Most Recent: 68.8 kg I&O - Last 24 hours: Intake & Output 11/13/17 11/14/17 11/14/17 22:59 06:59 14:59 Intake Total 80 967 Output Total 0 650 Balance 80 317 Lab Results - Last 24 hrs: Laboratory Results - last 24 hr 11/14/17 11/14/17 Range/Units 06:15 06:15 WBC 8.45 (4.0-11.0) K/uL RBC 4.71 (4.50-5.90) M/uL Hgb 14.1 (13.0-17.0) g/dL Hct 39.9 (38.0-50.0) % MCV 84.7 (80.0-98.0) fL MCH 29.9 (27.0-32.0) pg MCHC 35.3 (31.0-37.0) g/dL RDW Std Deviation 40.1 (28.0-62.0) fl RDW Coeff of Kathryn 13 (11.0-15.0) % Plt Count 229 (150-400) K/uL MPV 9.30 (7.40-12.00) fL Neut % (Auto) 55.7 (48.0-80.0) % Lymph % (Auto) 30.8 (16.0-40.0) % [place] % (Auto) 12.3 (0.0-15.0) % Eos % (Auto) 0.7 (0.0-7.0) % Baso % (Auto) 0.5 (0.0-1.5) % Neut # (Auto) 4.7 (1.4-5.7) K/uL Lymph # (Auto) 2.6 H (0.6-2.4) K/uL [place] # (Auto) 1.0 H (0.0-0.8) K/uL Eos # (Auto) 0.1 (0.0-0.7) K/uL Baso # (Auto) 0.0 (0.0-0.1) K/uL Nucleated RBC % 0.0 /100WBC Nucleated RBCs # 0 K/uL Sodium 141 (136-148) mmol/L Potassium 3.5 (3.5-5.1) mmol/L Chloride 105 (98-107) mmol/L Carbon Dioxide 26.0 (21.0-32.0) mmol/L BUN 13 (7.0-18.0) mg/dL Creatinine 0.8 (0.8-1.3) mg/dL Est Cr Clr Drug Dosing 119.58 mL/min Estimated GFR (MDRD) > 60.0 ml/min Glucose 81 (74-106) mg/dL Calcium 8.6 (8.5-10.1) mg/dL Magnesium 1.7 (1.5-2.0) mg/dL Total Bilirubin 0.8 (0.2-1.0) mg/dL AST 55 H (15-37) IU/L ALT 54 (14-63) IU/L Alkaline Phosphatase 43 L (46-116) U/L Total Protein 5.9 L (6.4-8.2) g/dL Albumin 3.6 (3.4-5.0) g/dL Globulin 2.3 (2.0-3.5) g/dL Albumin/Globulin Ratio 1.6 (1.3-2.8) [place] Results - Last 24 hrs: Microbiology 11/12/17 18:02 Aerobic Blood Culture - Preliminary Blood - Venous - Lab Draw NO GROWTH AFTER 1 DAY Anaerobic Blood Culture - Preliminary NO GROWTH AFTER 1 DAY 11/12/17 17:40 Aerobic Blood Culture - Preliminary Blood - Venous NO GROWTH AFTER 1 DAY Anaerobic Blood Culture - Final Med Orders - Current: Current Medications Enoxaparin Sodium (Lovenox) 40 mg SUBCUT Q24H [facility] Last Admin: 11/13/17 20:58 Dose: 40 mg Folic Acid (Folic Acid) 1 mg SUBCUT DAILY [facility] Last Admin: 11/14/17 08:17 Dose: 1 mg Hydromorphone HCl (Dilaudid) 1 mg IVPUSH Q2H PRN PRN Reason: Pain (severe 7-10) Lactated Ringer's (Ringers, Lactated) 1,000 mls @ 125 mls/hr IV ASDIRECTED [facility] Last Admin: 11/14/17 08:27 Dose: 125 mls/hr Lorazepam (Ativan) 0 mg IM Q4H PRN; Protocol PRN Reason: Agitation Last Admin: 11/13/17 21:07 Dose: 1 mg Ondansetron HCl (Zofran) 4 mg IVPUSH Q4H PRN PRN Reason: Nausea/Vomiting Last Admin: 11/14/17 00:42 Dose: 4 mg Pantoprazole Sodium (Protonix Iv) 40 mg IVPUSH Q12HR [facility] Last Admin: 11/14/17 08:14 Dose: 40 mg Promethazine HCl (Phenergan) 25 mg IM Q4H PRN PRN Reason: Nausea/Vomiting Sodium Chloride (Saline Flush) 10 ml FLUSH ASDIRECTED PRN PRN Reason: Keep Vein Open Sodium Chloride (Saline Flush) 2.5 ml FLUSH ASDIRECTED PRN PRN Reason: Keep Vein Open Thiamine HCl (Vitamin B-1) 100 mg IVPUSH DAILY [facility] Last Admin: 11/14/17 08:26 Dose: 100 mg Discontinued Medications Famotidine (Pepcid) 20 mg IVPUSH ONETIME ONE Stop: 11/12/17 14:00 Last Admin: 11/12/17 14:11 Dose: 20 mg Hydromorphone HCl (Dilaudid) 1 mg IVPUSH Q2H PRN PRN Reason: Pain (severe 7-10) Sodium Chloride (Normal Saline) 1,000 mls @ 999 mls/hr IV STAT ONE Stop: 11/12/17 14:48 Last Admin: 11/12/17 14:10 Dose: 999 mls/hr Sodium Chloride (Normal Saline) 1,000 mls @ 125 mls/hr IV STAT ONE Stop: 11/13/17 00:55 Last Admin: 11/12/17 17:56 Dose: 125 mls/hr Magnesium Sulfate 2 gm/ Premix 50 mls @ 25 mls/hr IV ONETIME ONE Stop: 11/12/17 22:16 Last Admin: 11/12/17 21:06 Dose: 25 mls/hr Iopamidol (Isovue Multipack-370 (76%)) 85 ml IVPUSH ONETIME STA Stop: 11/12/17 17:20 Last Admin: 11/12/17 17:30 Dose: 85 ml Morphine Sulfate (Morphine) 2 mg IVPUSH Q2H PRN PRN Reason: Pain (severe 7-10) Stop: 11/13/17 19:22 Last Admin: 11/13/17 09:38 Dose: 2 mg Ondansetron HCl (Zofran) 8 mg IVPUSH ONETIME ONE Stop: 11/12/17 14:00 Last Admin: 11/12/17 14:11 Dose: 8 mg Promethazine HCl (Phenergan) 25 mg IM ONETIME ONE Stop: 11/12/17 15:44 Last Admin: 11/12/17 16:04 Dose: 25 mg
[2017-11-14 12:04] VITALS: BP 116/63
== END 2017-11-14 13:35 | disposition home or self-care (01) ==
LOC: MW.ED 13:34 → MW.ICU 18:17 → MW.MS 11-13 12:11
PROVIDERS: ADMIT Family Medicine; ATTEND Family Medicine
DX: K29.20 Alcoholic gastritis without bleeding (principal); F17.210 Nicotine dependence, cigarettes, uncomplicated; W18.2XXA Fall in (into) shower or empty bathtub, initial encounter; Z79.899 Other long term (current) drug therapy
CPT/HCPCS: 36415; 70450; 71045; 74177; 80053; 80305; 81001; 82150; 82803; 83605; 83690; 83735; 84100; 85025; 85652; 86140; 86677; 87040; 96361; 96372; 96374; 96375; 99285; C9113; G0480; J1650; J2060; J2270; J2405; J2550; J3411; J3475; J7040; J7120; Q9967; 96376; G0378

== ENCOUNTER 2017-12-31 15:58 | Emergency (ER) | payer SELFPAY ==
[2017-12-31] MEDS ORDERED: LORazepam 2 MG/ML SDV IVPUSH ONE (16:01)
[2017-12-31] MEDS ORDERED: Ondansetron 4 MG/2 ML SDV IVPUSH ONE (16:01)
[2017-12-31] MEDS ORDERED: MVI, Adult with Vitamin K 10 ML, Thiamine 100 MG, Folic Acid 1 MG in Sodium Chloride 0.... IV ONE ×4 (16:02)
[2017-12-31] MEDS ORDERED: Lactated Ringers 1,000 ML IV ONE (16:08)
[2017-12-31] MEDS ORDERED: Sodium Chloride 0.9% 1,000 ML IV SCH (16:15)
--- NOTE | 2017-12-31 16:19 | EDM.PDOC ---
ED HPI GENERAL MEDICAL PROBLEM - General Chief Complaint: Drug or Alcohol Abuse Stated Complaint: ALCOHOL WITHDRAWAL Time Seen by Provider: 12/31/17 16:04 Source of Information: Reports: Patient History Limitations: Reports: No Limitations - History of Present Illness INITIAL COMMENTS - FREE TEXT/NARRATIVE: HISTORY AND PHYSICAL: History of present illness: Patient is a 27-year-old male presents to the emergency room with complaints of nausea, vomiting, abdominal pain and tremors. Patient was recently in alcohol treatment program and was kicked out 1 week ago for using alcohol. He states he went on a drinking "das" but has not had a drink in 4 days. Over the past 4 days he has had tremors and gone through "detox". Today he tried to eat some macaroni and cheese approximately 1-1/2 hours prior to his arrival. Upon trying to eat his macaroni and cheese became nauseated, or systemic vomiting with abdominal pain. Review of systems: As per history of present illness and below otherwise all systems reviewed and negative. Past medical history: As per history of present illness and as reviewed below otherwise noncontributory. Surgical history: As per history of present illness and as reviewed below otherwise noncontributory. Social history: No reported history of drug or alcohol abuse. Family history: As per history of present illness and as reviewed below otherwise noncontributory. Physical exam: General: Patient is alert and oriented 27-year-old male. Actively vomiting and retching. There is anxious but in no acute distress. HEENT: Atraumatic, normocephalic, pupils equal and reactive bilaterally, negative for conjunctival pallor or scleral icterus, mucous membranes moist, throat clear, neck supple, nontender, trachea midline. No drooling or trismus noted. No meningeal signs Lungs: Clear to auscultation, breath sounds equal bilaterally, chest nontender. Heart: S1S2, regular rate and rhythm without overt murmur Abdomen: Soft, nondistended, diffuse tenderness (nonspecific). Negative for masses or hepatosplenomegaly. Negative for costovertebral tenderness. Pelvis: Stable nontender. Genitourinary: Deferred. Rectal: Deferred. Skin: Pale, intact, warm, and dry. No lesions or rashes noted. Extremities: Atraumatic, negative for cords or calf pain. Neurovascular unremarkable. Neuro: Awake, alert, oriented. Cranial nerves II through XII unremarkable. Cerebellum unremarkable. Motor and sensory unremarkable throughout. Exam nonfocal. Notes: Upon arrival 8 mg of Zofran and 1 mg of Ativan given IV. This did help control his symptoms for approximately one hour, as he was able to sleep/rest quietly. Vital signs remain stable. Labs are pending. 1640: Patient has begun to vomit again. Ordered 25 mg of Phenergan IM given for symptoms. 1715: Labs are all within normal limits. Patient is currently trying to void to give a sample. 1800: Patient is actively vomiting and retching again. VSS. New medications ordered (Benadryl and Reglan). Currently there are no beds available at our facility. Patient and significant other were informed of this and offered possible transfer to [facility] in [place], if the Benadryl/Reglan does not work. 1830: Patient continues to be nauseated, no current vomiting notED. He states he "hurts all over". Patient still would like to be admitted. He is aware that there are no beds available and would like the ambulance transfer to [facility] for observation/further management. 1840: Dr Green, [facility] ED, was consulted on this case and agreeable to accepting this patient for care. Will go via ground EMS. Diagnostics: CBC, CMP, amylase, lipase, UA, urine drug screen, acute abdominal series Therapeutics: The fluid, Zofran, Ativan, Phenergan, Benadryl and Reglan Impression: Intractable Vomiting Plan: Transfer to [facility] - Dr Green Definitive disposition and diagnosis as appropriate pending reevaluation and review of above. Duration: Hour(s): abd Pain Score (Numeric/FACES): 7 - Related Data Allergies Allergy/AdvReac Type Severity Reaction Status Date / Time No Known Allergies Allergy Verified 12/31/17 16:02 Home Meds: Home Meds FLUoxetine HCl [Prozac] 20 mg DAILY 11/12/17 [History] cloNIDine [Catapres] 1 tab DAILY 11/12/17 [History] Past Medical History - Past Health History Medical/Surgical History: Denies Medical/Surgical History HEENT History: Reports: None Cardiovascular History: Reports: None Respiratory History: Reports: None Gastrointestinal History: Reports: None Genitourinary History: Reports: None Musculoskeletal History: Reports: Other (See Below) Other Musculoskeletal History: club feet Neurological History: Reports: None Psychiatric History: Reports: None Endocrine/Metabolic History: Reports: None Hematologic History: Reports: None Immunologic History: Reports: None Oncologic (Cancer) History: Reports: None Dermatologic History: Reports: None - Infectious Disease History Infectious Disease History: Reports: Chicken Pox - Past Surgical History Head Surgeries/Procedures: Reports: None Male Surgical History: Reports: None Musculoskeletal Surgical History: Reports: Other (See Below) Other Musculoskeletal Surgeries/Procedures:: repair of club feet Social & Family History - Family History Family Medical History: Noncontributory - Caffeine Use Caffeine Use: Reports: None Other Caffeine Use: Occasionally ED ROS GENERAL - Review of Systems Review Of Systems: ROS reveals no pertinent complaints other than HPI. ED EXAM, GI/ABD - Physical Exam Exam: See Below (See dictation) Course - Vital Signs Last Recorded V/S: Last Vital Signs Temp 96.8 F 12/31/17 16:02 Pulse 60 12/31/17 18:20 Resp 16 12/31/17 18:20 BP 118/66 12/31/17 18:20 Pulse Ox 100 12/31/17 18:20 - Orders/Labs/Meds Orders: Active Orders 24 hr Category Date Time Status Abdomen 2V AP Flat Upright [CR] Stat Exams 12/31/17 18:36 Ordered DRUG SCREEN, URINE [URCHEM] Stat Lab 12/31/17 16:01 Ordered UA W/MICROSCOPIC [URIN] Stat Lab 12/31/17 16:01 Ordered Labs: Laboratory Tests 12/31/17 12/31/17 12/31/17 Range/Units 16:15 16:15 17:31 WBC 14.47 H (4.0-11.0) K/uL RBC 5.16 (4.50-5.90) M/uL Hgb 15.5 (13.0-17.0) g/dL Hct 43.5 (38.0-50.0) % MCV 84.3 (80.0-98.0) fL MCH 30.0 (27.0-32.0) pg MCHC 35.6 (31.0-37.0) g/dL RDW Std Deviation 40.0 (28.0-62.0) fl RDW Coeff of Kathryn 13 (11.0-15.0) % Plt Count 303 (150-400) K/uL MPV 9.30 (7.40-12.00) fL Neut % (Auto) 80.6 H (48.0-80.0) % Lymph % (Auto) 11.2 L (16.0-40.0) % Mills % (Auto) 6.8 (0.0-15.0) % Eos % (Auto) 0.9 (0.0-7.0) % Baso % (Auto) 0.5 (0.0-1.5) % Neut # (Auto) 11.7 H (1.4-5.7) K/uL Lymph # (Auto) 1.6 (0.6-2.4) K/uL Mills # (Auto) 1.0 H (0.0-0.8) K/uL Eos # (Auto) 0.1 (0.0-0.7) K/uL Baso # (Auto) 0.1 (0.0-0.1) K/uL Nucleated RBC % 0.0 /100WBC Nucleated RBCs # 0 K/uL Sodium 141 (136-148) mmol/L Potassium 3.7 (3.5-5.1) mmol/L Chloride 105 (98-107) mmol/L Carbon Dioxide 26.4 (21.0-32.0) mmol/L BUN 12 (7.0-18.0) mg/dL Creatinine 1.1 (0.8-1.3) mg/dL Est Cr Clr Drug Dosing 83.72 mL/min Estimated GFR (MDRD) > 60.0 ml/min Glucose 152 H (74-106) mg/dL Calcium 9.8 (8.5-10.1) mg/dL Total Bilirubin 0.6 (0.2-1.0) mg/dL AST 18 (15-37) IU/L ALT 22 (14-63) IU/L Alkaline Phosphatase 51 (46-116) U/L Total Protein 7.0 (6.4-8.2) g/dL Albumin 4.4 (3.4-5.0) g/dL Globulin 2.6 (2.0-3.5) g/dL Albumin/Globulin Ratio 1.7 (1.3-2.8) Amylase 51 (25-115) U/L Lipase 159 (73-393) U/L Urine Color DARK YELLOW Urine Appearance CLOUDY Urine pH >= 9.0 H (5.0-8.0) Ur Specific [place] 1.015 (1.001-1.035) Urine Protein 30 (NEGATIVE) mg/dL Urine Glucose (UA) NEGATIVE (NEGATIVE) mg/dL Urine Ketones 15 H (NEGATIVE) mg/dL Urine Occult Blood NEGATIVE (NEGATIVE) Urine Nitrite NEGATIVE (NEGATIVE) Urine Bilirubin NEGATIVE (NEGATIVE) Urine Urobilinogen 0.2 (<2.0) EU/dL Ur Leukocyte Esterase NEGATIVE (NEGATIVE) Urine RBC 0-1 (0-2/HPF) Urine WBC 0-2 (0-5/HPF) Ur Epithelial Cells RARE (NONE-FEW) Amorphous Sediment HEAVY (NEGATIVE) Urine Bacteria RARE (NEGATIVE) Urine Opiates Screen (NEGATIVE) Ur Oxycodone Screen (NEGATIVE) Urine Methadone Screen (NEGATIVE) Ur Barbiturates Screen (NEGATIVE) Ur Phencyclidine Scrn (NEGATIVE) Ur Amphetamine Screen (NEGATIVE) U Methamphetamines Scrn (NEGATIVE) U Benzodiazepines Scrn (NEGATIVE) U Cocaine Metab Screen (NEGATIVE) U Marijuana (THC) Screen (NEGATIVE) Ethyl Alcohol < 3.0 mg/dL 12/31/17 Range/Units 17:31 WBC (4.0-11.0) K/uL RBC (4.50-5.90) M/uL Hgb (13.0-17.0) g/dL Hct (38.0-50.0) % MCV (80.0-98.0) fL MCH (27.0-32.0) pg MCHC (31.0-37.0) g/dL RDW Std Deviation (28.0-62.0) fl RDW Coeff of Kathryn (11.0-15.0) % Plt Count (150-400) K/uL MPV (7.40-12.00) fL Neut % (Auto) (48.0-80.0) % Lymph % (Auto) (16.0-40.0) % Mills % (Auto) (0.0-15.0) % Eos % (Auto) (0.0-7.0) % Baso % (Auto) (0.0-1.5) % Neut # (Auto) (1.4-5.7) K/uL Lymph # (Auto) (0.6-2.4) K/uL Mills # (Auto) (0.0-0.8) K/uL Eos # (Auto) (0.0-0.7) K/uL Baso # (Auto) (0.0-0.1) K/uL Nucleated RBC % /100WBC Nucleated RBCs # K/uL Sodium (136-148) mmol/L Potassium (3.5-5.1) mmol/L Chloride (98-107) mmol/L Carbon Dioxide (21.0-32.0) mmol/L BUN (7.0-18.0) mg/dL Creatinine (0.8-1.3) mg/dL Est Cr Clr Drug Dosing mL/min Estimated GFR (MDRD) ml/min Glucose (74-106) mg/dL Calcium (8.5-10.1) mg/dL Total Bilirubin (0.2-1.0) mg/dL AST (15-37) IU/L ALT (14-63) IU/L Alkaline Phosphatase (46-116) U/L Total Protein (6.4-8.2) g/dL Albumin (3.4-5.0) g/dL Globulin (2.0-3.5) g/dL Albumin/Globulin Ratio (1.3-2.8) Amylase (25-115) U/L Lipase (73-393) U/L Urine Color Urine Appearance Urine pH (5.0-8.0) Ur Specific [place] (1.001-1.035) Urine Protein (NEGATIVE) mg/dL Urine Glucose (UA) (NEGATIVE) mg/dL Urine Ketones (NEGATIVE) mg/dL Urine Occult Blood (NEGATIVE) Urine Nitrite (NEGATIVE) Urine Bilirubin (NEGATIVE) Urine Urobilinogen (<2.0) EU/dL Ur Leukocyte Esterase (NEGATIVE) Urine RBC (0-2/HPF) Urine WBC (0-5/HPF) Ur Epithelial Cells (NONE-FEW) Amorphous Sediment (NEGATIVE) Urine Bacteria (NEGATIVE) Urine Opiates Screen NEGATIVE (NEGATIVE) Ur Oxycodone Screen NEGATIVE (NEGATIVE) Urine Methadone Screen NEGATIVE (NEGATIVE) Ur Barbiturates Screen NEGATIVE (NEGATIVE) Ur Phencyclidine Scrn NEGATIVE (NEGATIVE) Ur Amphetamine Screen NEGATIVE (NEGATIVE) U Methamphetamines Scrn NEGATIVE (NEGATIVE) U Benzodiazepines Scrn NEGATIVE (NEGATIVE) U Cocaine Metab Screen NEGATIVE (NEGATIVE) U Marijuana (THC) Screen POSITIVE (NEGATIVE) Ethyl Alcohol mg/dL Meds: Medications Discontinued Medications Generic Name Dose Route Start Last Admin Trade Name Inessa PRN Reason Stop Dose Admin Diphenhydramine HCl 50 mg 12/31/17 18:01 12/31/17 18:09 Benadryl IVPUSH 12/31/17 18:02 50 mg ONETIME ONE Administration Sodium Chloride 1,000 mls @ 999 mls/hr 12/31/17 16:15 Normal Saline IV ASDIRECTED MICHELLE Multivitamins/Minerals 10 ml/ 1,011.2 mls @ 500 mls/hr 12/31/17 16:02 16:20 Thiamine HCl 100 mg/ Folic IV 12/31/17 18:03 500 mls/hr Acid 1 mg/ Sodium Chloride ONETIME ONE Administration Lactated Ringer's 1,000 mls @ 999 mls/hr 12/31/17 16:08 12/31/17 16:13 Ringers, Lactated IV 12/31/17 17:08 999 mls/hr ONETIME ONE Administration Lorazepam 1 mg 12/31/17 16:01 12/31/17 16:03 Ativan IVPUSH 12/31/17 16:02 1 mg ONETIME ONE Administration Metoclopramide HCl 10 mg 12/31/17 18:01 12/31/17 18:11 Reglan IV 12/31/17 18:02 10 mg ONETIME ONE Administration Ondansetron HCl 8 mg 12/31/17 16:01 12/31/17 16:03 Zofran IVPUSH 12/31/17 16:02 8 mg ONETIME ONE Administration Promethazine HCl 25 mg 12/31/17 16:43 12/31/17 16:47 Phenergan IM 12/31/17 16:44 25 mg ONETIME ONE Administration Departure - Departure Time of Disposition: 18:44 Disposition: DC/Tfer to Other 70 Clinical Impression: Intractable vomiting with nausea Qualifiers: Vomiting type: unspecified Qualified Code(s): R11.2 - Nausea with vomiting, unspecified - Discharge Information Referrals: PCP,Unknown [Primary Care Provider] - Forms: ED Department Discharge - My Orders Last 24 Hours: My Active Orders 12/31/17 16:01 DRUG SCREEN, URINE [URCHEM] Stat UA W/MICROSCOPIC [URIN] Stat 12/31/17 18:36 Abdomen 2V AP Flat Upright [CR] Stat - Assessment/Plan Last 24 Hours: My Active Orders 12/31/17 16:01 DRUG SCREEN, URINE [URCHEM] Stat UA W/MICROSCOPIC [URIN] Stat 12/31/17 18:36 Abdomen 2V AP Flat Upright [CR] Stat
[2017-12-31 16:41] LABS: CHLORIDE,CL 105 mmol/L (98-107); SODIUM,NA 141 mmol/L (136-148)
[2017-12-31] MEDS ORDERED: Promethazine 25 MG/ML SDV IM ONE (16:43)
[2017-12-31] MEDS ORDERED: diphenhydrAMINE 50 MG/ML SDV IVPUSH ONE (18:01)
[2017-12-31] MEDS ORDERED: Metoclopramide 10 MG/2 ML SDV IV ONE (18:01)
[2017-12-31 18:22] VITALS: BP 118/66
[2017-12-31] MEDS ORDERED: Sodium Chloride 0.9% 1,000 ML IV ONE (18:49)
--- NOTE | 2018-01-01 09:58 | CR ---
EXAM DATE: 12/31/17 PATIENT'S AGE: 27 Patient: FRANK VARGAS Facility: [place], [place] Site . Site : 1990 Study: XRay Abdomen [id number] 7:18:28 PM Ordering Physician: Doctor Forbes Final Report: Indication: Nausea and vomiting Technique: KUB 2 view Comparison: None Findings/Impression: : Nonspecific bowel gas pattern. No free air or pneumatosis. Lung bases are clear. Cardiomediastinal silhouette is normal. Osseous structures intact. Dictated by Leslie Auguste MD @ Dec 31 2017 7:29PM (Electronic Signature) Report Signed by Proxy. AMPARO
== END 2017-12-31 19:22 | disposition other institution (70) ==
LOC: MW.ED 15:58
DX: R11.2 Nausea with vomiting, unspecified (principal); E03.9 Hypothyroidism, unspecified; F41.9 Anxiety disorder, unspecified; R07.9 Chest pain, unspecified; R10.12 Left upper quadrant pain; Z79.82 Long term (current) use of aspirin; Z79.899 Other long term (current) drug therapy
CPT/HCPCS: 36415; 74019; 80053; 80305; 81001; 82150; 83690; 85025; 96361; 96365; 96366; 96372; 96375; 99285; G0480; J1200; J2060; J2405; J2550; J2765; J3411; J7040; J7120; 99283

== ENCOUNTER 2018-01-24 12:49 | Inpatient (IN) | payer OTHER ==
[2018-01-24] MEDS ORDERED: Pantoprazole 40 MG Vial IVPUSH ONE (12:52)
[2018-01-24] MEDS ORDERED: Sodium Chloride 0.9% 1,000 ML IV ONE (12:52)
[2018-01-24] MEDS ORDERED: Ondansetron 4 MG/2 ML SDV IVPUSH ONE (12:52)
--- NOTE | 2018-01-24 12:53 | EDM.PDOC ---
ED HPI GENERAL MEDICAL PROBLEM - General Stated Complaint: VOMITING Time Seen by Provider: 01/24/18 12:53 Source of Information: Reports: Patient - History of Present Illness INITIAL COMMENTS - FREE TEXT/NARRATIVE: HISTORY AND PHYSICAL: History of present illness: [Patient presents via EMS for vomiting His been vomiting since Thursday is well known to us in the ER generally for alcohol-related problems however he has not been drinking over the last 2-3 weeks she has no other symptoms such as fever chills sweats chest pain shortness breath headache dizziness or palpitation no bowel or urine symptoms denies any abdominal pain History of alcohol gastritis Last alcohol intake 2-3 weeks prior per patient ] Review of systems: As per history of present illness and below otherwise all systems reviewed and negative. Past medical history: As per history of present illness and as reviewed below otherwise noncontributory. Surgical history: As per history of present illness and as reviewed below otherwise noncontributory. Social history: No reported history of drug or alcohol abuse. Family history: As per history of present illness and as reviewed below otherwise noncontributory. Physical exam: HEENT: Atraumatic, normocephalic, pupils reactive, negative for conjunctival pallor or scleral icterus, mucous membranes moist, throat clear, neck supple, nontender, trachea midline. Lungs: Clear to auscultation, breath sounds equal bilaterally, chest nontender. Heart: S1S2, regular, negative for clicks, rubs, or JVD. Abdomen: Soft, nondistended, nontender. Negative for masses or hepatosplenomegaly. Negative for costovertebral tenderness. Pelvis: Stable nontender. Genitourinary: Deferred. Rectal: Deferred. Extremities: Atraumatic, negative for cords or calf pain. Neurovascular unremarkable. Neuro: Awake, alert, oriented. Cranial nerves II through XII unremarkable. Cerebellum unremarkable. Motor and sensory unremarkable throughout. Exam nonfocal. Diagnostics: [ CBC CMP lipase UA Abdomen flat and upright ] Therapeutics: [1 liter bolus Zofran 8 mg IV tonics 80 mg IV ] Impression: [] dehydration electrolyte abnormalities Definitive disposition and diagnosis as appropriate pending reevaluation and review of above. Upper Abdominal Pain Score (Numeric/FACES): 8 - Related Data Allergies Allergy/AdvReac Type Severity Reaction Status Date / Time No Known Allergies Allergy Verified 12/31/17 16:02 Home Meds: Home Meds FLUoxetine HCl [Prozac] 20 mg DAILY 11/12/17 [History] cloNIDine [Catapres] 1 tab DAILY 11/12/17 [History] Past Medical History - Past Health History Medical/Surgical History: Denies Medical/Surgical History HEENT History: Reports: None Cardiovascular History: Reports: None Respiratory History: Reports: None Gastrointestinal History: Reports: None Genitourinary History: Reports: None Musculoskeletal History: Reports: Other (See Below) Other Musculoskeletal History: club feet Neurological History: Reports: None Psychiatric History: Reports: None Endocrine/Metabolic History: Reports: None Hematologic History: Reports: None Immunologic History: Reports: None Oncologic (Cancer) History: Reports: None Dermatologic History: Reports: None - Infectious Disease History Infectious Disease History: Reports: Chicken Pox - Past Surgical History Head Surgeries/Procedures: Reports: None Male Surgical History: Reports: None Musculoskeletal Surgical History: Reports: Other (See Below) Other Musculoskeletal Surgeries/Procedures:: repair of club feet Social & Family History - Family History Family Medical History: Noncontributory - Caffeine Use Caffeine Use: Reports: None Other Caffeine Use: Occasionally ED ROS GENERAL - Review of Systems Review Of Systems: See Below ED EXAM, GENERAL - Physical Exam Exam: See Below Course - Vital Signs Last Recorded V/S: Last Vital Signs Temp 96.2 F 01/24/18 12:52 Pulse 90 01/24/18 12:52 Resp 18 01/24/18 12:52 BP 129/83 01/24/18 12:52 Pulse Ox 99 01/24/18 12:52 - Orders/Labs/Meds Orders: Active Orders 24 hr Category Date Time Status Abdomen 2V AP Flat Upright [CR] Stat Exams 01/24/18 14:02 Ordered Sodium Chloride 0.9% [Normal Saline] 1,000 ml Med 01/24/18 13:45 Active IV STAT Medication Orders Sodium Chloride (Normal Saline) 1,000 mls @ 150 mls/hr IV STAT MICHELLE Labs: Laboratory Tests 01/24/18 01/24/18 Range/Units 13:00 13:00 WBC 15.86 H (4.0-11.0) K/uL RBC 6.22 H (4.50-5.90) M/uL Hgb 19.3 H (13.0-17.0) g/dL Hct 51.4 H (38.0-50.0) % MCV 82.6 (80.0-98.0) fL MCH 31.0 (27.0-32.0) pg MCHC 37.5 H (31.0-37.0) g/dL RDW Std Deviation 39.5 (28.0-62.0) fl RDW Coeff of Kathryn 13 (11.0-15.0) % Plt Count 326 (150-400) K/uL MPV 9.70 (7.40-12.00) fL Neut % (Auto) 76.0 (48.0-80.0) % Lymph % (Auto) 11.7 L (16.0-40.0) % Story % (Auto) 11.7 (0.0-15.0) % Eos % (Auto) 0.2 (0.0-7.0) % Baso % (Auto) 0.4 (0.0-1.5) % Neut # (Auto) 12.1 H (1.4-5.7) K/uL Lymph # (Auto) 1.9 (0.6-2.4) K/uL Story # (Auto) 1.9 H (0.0-0.8) K/uL Eos # (Auto) 0.0 (0.0-0.7) K/uL Baso # (Auto) 0.1 (0.0-0.1) K/uL Nucleated RBC % 0.0 /100WBC Nucleated RBCs # 0 K/uL Sodium 131 L (136-148) mmol/L Potassium 3.2 L (3.5-5.1) mmol/L Chloride 91 L (98-107) mmol/L Carbon Dioxide 18.7 L (21.0-32.0) mmol/L BUN 67 H (7.0-18.0) mg/dL Creatinine 3.5 H (0.8-1.3) mg/dL Est Cr Clr Drug Dosing 27.29 mL/min Estimated GFR (MDRD) 21.0 ml/min Glucose 165 H (74-106) mg/dL Calcium 10.7 H (8.5-10.1) mg/dL Total Bilirubin 1.4 H (0.2-1.0) mg/dL AST 38 H (15-37) IU/L ALT 38 (14-63) IU/L Alkaline Phosphatase 63 (46-116) U/L Total Protein 9.7 H (6.4-8.2) g/dL Albumin 6.0 H (3.4-5.0) g/dL Globulin 3.7 H (2.0-3.5) g/dL Albumin/Globulin Ratio 1.6 (1.3-2.8) Lipase 92 (73-393) U/L Ethyl Alcohol < 3.0 mg/dL Meds: Medications Generic Name Dose Route Start Last Admin Trade Name Freq PRN Reason Stop Dose Admin Sodium Chloride 1,000 mls @ 150 mls/hr 01/24/18 13:45 Normal Saline IV STAT MICHELLE Discontinued Medications Generic Name Dose Route Start Last Admin Trade Name Freq PRN Reason Stop Dose Admin Sodium Chloride 1,000 mls @ 999 mls/hr 01/24/18 12:52 01/24/18 13:07 Normal Saline IV 01/24/18 13:52 999 mls/hr STAT ONE Administration Ondansetron HCl 8 mg 01/24/18 12:52 01/24/18 13:08 Zofran IVPUSH 01/24/18 12:53 8 mg ONETIME ONE Administration Pantoprazole Sodium 80 mg 01/24/18 12:52 01/24/18 13:09 Protonix Iv IVPUSH 01/24/18 12:53 80 mg .BOLUS ONE Administration Departure - Departure Time of Disposition: 14:15 Disposition: Home, Self-Care 01 Condition: Poor Clinical Impression: Dehydration, Electrolyte abnormality - Discharge Information - My Orders Last 24 Hours: My Active Orders 01/24/18 13:45 Sodium Chloride 0.9% [Normal Saline] 1,000 ml IV STAT 01/24/18 14:02 Abdomen 2V AP Flat Upright [CR] Stat - Assessment/Plan Last 24 Hours: My Active Orders 01/24/18 13:45 Sodium Chloride 0.9% [Normal Saline] 1,000 ml IV STAT 01/24/18 14:02 Abdomen 2V AP Flat Upright [CR] Stat
[2018-01-24 13:31] LABS: CHLORIDE,CL 91 mmol/L (98-107); SODIUM,NA 131 mmol/L (136-148)
[2018-01-24] MEDS: Sodium Chloride 0.9% 1,000 ML IV SCH ×3 (14:15→20:04)
[2018-01-24] MEDS ORDERED: Promethazine 25 MG/ML SDV IM PRN (14:46)
[2018-01-24] MEDS ORDERED: Thiamine 100 MG in Sodium Chloride 0.9% 100 ML IV ONE (14:49)
[2018-01-24] MEDS ORDERED: NS + KCl 20mEq/L 1,000 ML IV SCH (15:00)
[2018-01-24] MEDS ORDERED: Sodium Chloride 0.9% 1,000 ML IV SCH ×2 (15:00→15:30)
[2018-01-24] MEDS ORDERED: LORazepam 2 MG/ML SDV IVPUSH ONE (15:07)
--- NOTE | 2018-01-24 15:17 | PCM.HP ---
H&P History of Present Illness - General Date of Service: 01/24/18 Admit Problem/Dx: Admission Diagnosis/Problem Admission Diagnosis/Problem Dehydration Source of Information: Patient History Limitations: Reports: No Limitations - History of Present Illness Initial Comments - Free Text/Narative: 27M with a history of chronic alcoholism that presents today with a CC of abdominal pain, nausea that began on 01/22/18 all of a sudden. Pain is located in the epigastric region, nonradiating, nonpleuritic. He goes on to tell me that he hasn't had any alcohol for the last 3 weeks. As per the chart, he has been admitted for similar reasons in the past. No new foods, sick contacts, or recent travel. He denies any fevers, chills, chest pain. Last bowel movement was thursday but has been passing gas. During my exam, he was nauseous and vomiting a non bloody emesis of what appeared to be bile. ER Course: CBC - wbc 15.8k, hgb 19.3k CMP: Cr 3.5 Lipase normal, AST/ALT 38,38 UA: pending Abdominal x-ray: unremarkable Upper Abdominal Pain Score (Numeric/FACES): 4 - Related Data Allergies/Adverse Reactions: Allergies Allergy/AdvReac Type Severity Reaction Status Date / Time No Known Allergies Allergy Verified 12/31/17 16:02 Home Medications: Home Meds FLUoxetine HCl [Prozac] 20 mg DAILY 11/12/17 [History] cloNIDine [Catapres] 1 tab DAILY 11/12/17 [History] Past Medical History - Past Health History Medical/Surgical History: Denies Medical/Surgical History HEENT History: Reports: None Cardiovascular History: Reports: None Respiratory History: Reports: None Gastrointestinal History: Reports: None Genitourinary History: Reports: None Musculoskeletal History: Reports: Other (See Below) Other Musculoskeletal History: club feet Neurological History: Reports: None Psychiatric History: Reports: None Endocrine/Metabolic History: Reports: None Hematologic History: Reports: None Immunologic History: Reports: None Oncologic (Cancer) History: Reports: None Dermatologic History: Reports: None - Infectious Disease History Infectious Disease History: Reports: Chicken Pox - Past Surgical History Head Surgeries/Procedures: Reports: None Male Surgical History: Reports: None Musculoskeletal Surgical History: Reports: Other (See Below) Other Musculoskeletal Surgeries/Procedures:: repair of club feet Social & Family History - Family History Family Medical History: Noncontributory - Tobacco Use Smoking Status *Q: Current Every Day Smoker Years of Tobacco use: 10 Packs/Tins Daily: 2.5 - Caffeine Use Caffeine Use: Reports: None Other Caffeine Use: Occasionally - Alcohol Use Days Per Week of Alcohol Use: 2 Number of Drinks Per Day: 5 Total Drinks Per Week: 10 Date of Last Drink: 01/10/18 Time of Last Drink: 21:00 - Recreational Drug Use Recreational Drug Use: Yes Recreational Drug Type: Reports: Marijuana/Hashish H&P Review of Systems - Review of Systems: Review Of Systems: See Below HEENT: Reports: No Symptoms Pulmonary: Reports: No Symptoms Cardiovascular: Reports: No Symptoms Gastrointestinal: Reports: Abdominal Pain, Nausea, Vomiting. Denies: Black Stool, Bloody Stool, Diarrhea Genitourinary: Reports: No Symptoms Musculoskeletal: Reports: No Symptoms Skin: Reports: No Symptoms Psychiatric: Reports: No Symptoms Neurological: Reports: No Symptoms Hematologic/Lymphatic: Reports: No Symptoms Immunologic: Reports: No Symptoms Exam - Exam Exam: See Below - Vital Signs Vital Signs: Last Vital Signs Temp 35.7 C 01/24/18 12:52 Pulse 63 01/24/18 15:02 Resp 16 01/24/18 15:02 BP 116/72 01/24/18 15:02 Pulse Ox 95 01/24/18 15:02 Weight: 70.307 kg - Exam General: Alert, Oriented, Other (nauseous, vomiting) HEENT: Conjunctiva Clear, EOMI Neck: Supple, Trachea Midline Lungs: Clear to Auscultation, Normal Respiratory Effort Cardiovascular: Regular Rate, Regular Rhythm GI/Abdominal Exam: Normal Bowel Sounds, Soft Extremities: Normal Inspection, Normal Range of Motion, Non-Tender, No Pedal Edema, Normal Capillary Refill Peripheral Pulses: 1+: Dorsalis Pedis (L), Dorsalis Pedis (R) Skin: Warm, Dry Neurological: Cranial Nerves Intact Neuro Extensive - Mental Status: Alert, Oriented x3 Neuro Extensive - Motor, Sensory, Reflexes: CN II-XII Intact, Normal Reflexes Psychiatric: Alert, Normal Affect, Normal Mood - Patient Data Lab Results Last 24 hrs: Laboratory Results - last 24 hr 01/24/18 01/24/18 Range/Units 13:00 13:00 WBC 15.86 H (4.0-11.0) K/uL RBC 6.22 H (4.50-5.90) M/uL Hgb 19.3 H (13.0-17.0) g/dL Hct 51.4 H (38.0-50.0) % MCV 82.6 (80.0-98.0) fL MCH 31.0 (27.0-32.0) pg MCHC 37.5 H (31.0-37.0) g/dL RDW Std Deviation 39.5 (28.0-62.0) fl RDW Coeff of Kathryn 13 (11.0-15.0) % Plt Count 326 (150-400) K/uL MPV 9.70 (7.40-12.00) fL Neut % (Auto) 76.0 (48.0-80.0) % Lymph % (Auto) 11.7 L (16.0-40.0) % [place] % (Auto) 11.7 (0.0-15.0) % Eos % (Auto) 0.2 (0.0-7.0) % Baso % (Auto) 0.4 (0.0-1.5) % Neut # (Auto) 12.1 H (1.4-5.7) K/uL Lymph # (Auto) 1.9 (0.6-2.4) K/uL [place] # (Auto) 1.9 H (0.0-0.8) K/uL Eos # (Auto) 0.0 (0.0-0.7) K/uL Baso # (Auto) 0.1 (0.0-0.1) K/uL Nucleated RBC % 0.0 /100WBC Nucleated RBCs # 0 K/uL Sodium 131 L (136-148) mmol/L Potassium 3.2 L (3.5-5.1) mmol/L Chloride 91 L (98-107) mmol/L Carbon Dioxide 18.7 L (21.0-32.0) mmol/L BUN 67 H (7.0-18.0) mg/dL Creatinine 3.5 H (0.8-1.3) mg/dL Est Cr Clr Drug Dosing 27.29 mL/min Estimated GFR (MDRD) 21.0 ml/min Glucose 165 H (74-106) mg/dL Calcium 10.7 H (8.5-10.1) mg/dL Total Bilirubin 1.4 H (0.2-1.0) mg/dL AST 38 H (15-37) IU/L ALT 38 (14-63) IU/L Alkaline Phosphatase 63 (46-116) U/L Total Protein 9.7 H (6.4-8.2) g/dL Albumin 6.0 H (3.4-5.0) g/dL Globulin 3.7 H (2.0-3.5) g/dL Albumin/Globulin Ratio 1.6 (1.3-2.8) Lipase 92 (73-393) U/L Ethyl Alcohol < 3.0 mg/dL Result Diagrams: 01/24/18 13:00 01/24/18 13:00 Problem List Initiated/Reviewed/Updated: Yes Orders Last 24hrs: Active Orders 24 hr Category Date Time Status Admission Status [Patient Status] [ADT] Stat ADT 01/24/18 14:25 Active Oxygen Therapy [RC] PRN Care 01/24/18 14:46 Active Up ad Patricia [RC] ASDIRECTED Care 01/24/18 14:46 Active VTE/DVT Education [RC] PER UNIT ROUTINE Care 01/24/18 14:46 Active Vital Signs [RC] Q4H Care 01/24/18 14:46 Active Nothing per Oral Now Diet [DIET] Diet 01/24/18 Lunch Active Abdomen 2V AP Flat Upright [CR] Stat Exams 01/24/18 14:02 Taken CPK [CREATINE KINASE,CK] [CHEM] Stat Lab 01/24/18 14:46 Ordered CREATININE,URINE RAND [URCHEM] Routine Lab 01/24/18 15:08 Ordered HELICOBACTER PYLORI AB IGG [CHEM] Routine Lab 01/24/18 15:09 Ordered SODIUM,URINE RANDOM [URCHEM] Routine Lab 01/24/18 15:08 Ordered Folic Acid Med 01/24/18 21:00 Active 1 mg PO BEDTIME NS + KCl 20mEq/L [Normal Saline with 20 mEq KCl] 1,000 Med 01/24/18 15:00 Active ml IV ASDIRECTED Ondansetron [Zofran] Med 01/24/18 14:46 Active 4 mg IVPUSH Q4H PRN Promethazine [Phenergan] Med 01/24/18 14:46 Active 12.5 mg IM Q4H PRN Sodium Chloride 0.9% [Normal Saline] 1,000 ml Med 01/24/18 13:45 Active IV STAT Sequential Compression Device [OM.PC] Per Unit Routine Oth 01/24/18 14:47 Ordered Resuscitation Status Routine Resus Stat 01/24/18 14:46 Ordered Medication Orders Folic Acid (Folic Acid) 1 mg PO BEDTIME MICHELLE Sodium Chloride (Normal Saline) 1,000 mls @ 150 mls/hr IV STAT MICHELLE Last Admin: 01/24/18 14:15 Dose: 150 mls/hr Potassium Chloride/Sodium Chloride (Normal Saline With 20 Meq Kcl) 1,000 mls @ 150 mls/hr IV ASDIRECTED MICHELLE Ondansetron HCl (Zofran) 4 mg IVPUSH Q4H PRN PRN Reason: Nausea Promethazine HCl (Phenergan) 12.5 mg IM Q4H PRN PRN Reason: Nausea/Vomiting Assessment/Plan Comment:: Assessment: #1. Gastritis presumed to be secondary to alcoholic gastritis #2. Intractable nausea and vomiting #3. Acute Kidney Injury #4. Dehydration resulting in #3 #5. History of depression, chronic alcoholism Plan: #1. Admit to the floor for observation. Full code. VS per floor routine. NPO #2. PRN IV Zofran, Permethazine as ordered #3. IVNS + 20meq K 150mL/h. Follow up on the CK, as if this is elevated it, rhabdomyolysis would mean we need to stop added potassium to avoid possible hyperkalemia. #4. H. Pylori IGG #5. PRN Ativan following [facility] protocol #6. Thiamine, folic acid as ordered for chronic etoh
[2018-01-24] MEDS ORDERED: Thiamine 200 MG/2 ML MDV IV ONE (15:45)
[2018-01-24] MEDS: Ondansetron 4 MG/2 ML SDV IVPUSH PRN ×2 (17:26→22:18)
[2018-01-24] MEDS ORDERED: Folic Acid 1 MG Tab PO SCH (21:00)
[2018-01-25] MEDS: Sodium Chloride 0.9% 1,000 ML IV SCH (02:59)
[2018-01-25 05:53] LABS: CHLORIDE,CL 102 mmol/L (98-107); SODIUM,NA 135 mmol/L (136-148)
[2018-01-25 09:17] VITALS: BP 116/56
--- NOTE | 2018-01-25 11:55 | PCM.DCSUM1 ---
Discharge Summary - Hospital Course Free Text/Narrative:: Admission date: 01/24/18 Discharge date: 01/25/18 Admission Diagnosis: #1. Gastritis presumed to be secondary to alcoholic gastritis #2. Intractable nausea and vomiting #3. Acute Kidney Injury #4. Dehydration resulting in #3 #5. History of depression, chronic alcoholism Discharge Diagnosis: #1. Prerenal GUICHO - resolved #2. Elevated CK - improving #3. Dehydration #4. Gastritis #5. Hx of depression, chronic alcoholism Hospital course: 27M with the above hx presented to the ER on 01/24 complaining of intractable nausea and vomiting that started all of a sudden. He does have a hx of alcohol use but stated that he hadnt had a drink in over 3 weeks. Patient also states that he has been working outdoors and may be dehdyrated. On presentation, patient did appear to be very dry not making significant urine. He was aggressively hydrated. Labs showed an elevated CK which was downtrending to an acceptable value prior to discharge. Lipase was negative. Abdominal CT was also ordered secondary to considerable amount of epigastric pain which was unremarkable. Next morning he felt much better, kidney function appeared to have improved. He was ultimately discharged and advised to f/u with PCP, encouraged to refraining from alcohol use. - Discharge Data Discharge Date: 01/25/18 Discharge Disposition: Home, Self-Care 01 Condition: Stable - Patient Instructions Diet: No Alcoholic Beverages Activity: As Tolerated Driving: May Drive Today Showering/Bathing: May Shower Notify Provider of: Fever, Increased Pain, Swelling and Redness, Drainage, Nausea and/or Vomiting - Discharge Plan Home Medications: Home Meds FLUoxetine HCl [Prozac] 20 mg DAILY 11/12/17 [History] cloNIDine [Catapres] 1 tab DAILY 11/12/17 [History] Patient Handouts: Acute Kidney Injury, Adult Referrals: Krystle Macias PA [Physician Weight Trainer] - 02/05/18 10:15 am - Discharge Summary/Plan Comment Discharge Summary/Plan Comment: Admission date: 01/24/18 Discharge date: 01/25/18 Admission Diagnosis: #1. Gastritis presumed to be secondary to alcoholic gastritis #2. Intractable nausea and vomiting #3. Acute Kidney Injury #4. Dehydration resulting in #3 #5. History of depression, chronic alcoholism Discharge Diagnosis: #1. Prerenal GUICHO - resolved #2. Elevated CK - improving #3. Dehydration #4. Gastritis #5. Hx of depression, chronic alcoholism Hospital course: 27M with the above hx presented to the ER on 01/24 complaining of intractable nausea and vomiting that started all of a sudden. He does have a hx of alcohol use but stated that he hadnt had a drink in over 3 weeks. Patient also states that he has been working outdoors and may be dehdyrated. On presentation, patient did appear to be very dry not making significant urine. He was aggressively hydrated. Labs showed an elevated CK which was downtrending to an acceptable value prior to discharge. Lipase was negative. Abdominal CT was also ordered secondary to considerable amount of epigastric pain which was unremarkable. Next morning he felt much better, kidney function appeared to have improved. He was ultimately discharged and advised to f/u with PCP, encouraged to refraining from alcohol use. Advised to drink plenty of fluids over the next few days and avoid working outdoors for long periods of time. - Patient Data Vitals - Most Recent: Last Vital Signs Temp 36.7 C 01/25/18 08:00 Pulse 55 L 01/25/18 08:00 Resp 16 01/25/18 08:00 BP 116/56 L 01/25/18 08:00 Pulse Ox 96 01/25/18 08:00 Weight - Most Recent: 70.307 kg I&O - Last 24 hours: Intake & Output 01/24/18 01/25/18 01/25/18 22:59 06:59 14:59 Intake Total 2320 1000 Output Total 400 300 Balance 1920 700 Lab Results - Last 24 hrs: Laboratory Results - last 24 hr 01/24/18 01/24/18 01/24/18 Range/Units 13:00 13:00 13:00 WBC 15.86 H (4.0-11.0) K/uL RBC 6.22 H (4.50-5.90) M/uL Hgb 19.3 H (13.0-17.0) g/dL Hct 51.4 H (38.0-50.0) % MCV 82.6 (80.0-98.0) fL MCH 31.0 (27.0-32.0) pg MCHC 37.5 H (31.0-37.0) g/dL RDW Std Deviation 39.5 (28.0-62.0) fl RDW Coeff of Kathryn 13 (11.0-15.0) % Plt Count 326 (150-400) K/uL MPV 9.70 (7.40-12.00) fL Neut % (Auto) 76.0 (48.0-80.0) % Lymph % (Auto) 11.7 L (16.0-40.0) % [place] % (Auto) 11.7 (0.0-15.0) % Eos % (Auto) 0.2 (0.0-7.0) % Baso % (Auto) 0.4 (0.0-1.5) % Neut # (Auto) 12.1 H (1.4-5.7) K/uL Lymph # (Auto) 1.9 (0.6-2.4) K/uL [place] # (Auto) 1.9 H (0.0-0.8) K/uL Eos # (Auto) 0.0 (0.0-0.7) K/uL Baso # (Auto) 0.1 (0.0-0.1) K/uL Add Manual Diff Neutrophils % (Manual) (48.0-80.0) % Band Neutrophils % % Lymphocytes % (Manual) (16.0-40.0) % Monocytes % (Manual) (0.0-15.0) % Nucleated RBC % 0.0 /100WBC Absolute Seg Neuts (1.4-5.7) Band Neutrophils # Lymphocytes # (Manual) (0.6-2.4) Monocytes # (Manual) (0.0-0.8) Nucleated RBCs # 0 K/uL Sodium 131 L (136-148) mmol/L Potassium 3.2 L (3.5-5.1) mmol/L Chloride 91 L (98-107) mmol/L Carbon Dioxide 18.7 L (21.0-32.0) mmol/L BUN 67 H (7.0-18.0) mg/dL Creatinine 3.5 H (0.8-1.3) mg/dL Est Cr Clr Drug Dosing 27.29 mL/min Estimated GFR (MDRD) 21.0 ml/min Glucose 165 H (74-106) mg/dL Calcium 10.7 H (8.5-10.1) mg/dL Total Bilirubin 1.4 H (0.2-1.0) mg/dL AST 38 H (15-37) IU/L ALT 38 (14-63) IU/L Alkaline Phosphatase 63 (46-116) U/L Creatine Kinase 1010 H (26-308) U/L Total Protein 9.7 H (6.4-8.2) g/dL Albumin 6.0 H (3.4-5.0) g/dL Globulin 3.7 H (2.0-3.5) g/dL Albumin/Globulin Ratio 1.6 (1.3-2.8) Lipase 92 (73-393) U/L Ur Random Creatinine mg/dL Ur Random Sodium (40.0-220.0) mmol/L Ethyl Alcohol < 3.0 mg/dL H. pylori IgG Antibody (NEG) 01/24/18 01/24/18 01/24/18 Range/Units 13:00 16:30 19:10 WBC (4.0-11.0) K/uL RBC (4.50-5.90) M/uL Hgb (13.0-17.0) g/dL Hct (38.0-50.0) % MCV (80.0-98.0) fL MCH (27.0-32.0) pg MCHC (31.0-37.0) g/dL RDW Std Deviation (28.0-62.0) fl RDW Coeff of Kathryn (11.0-15.0) % Plt Count (150-400) K/uL MPV (7.40-12.00) fL Neut % (Auto) (48.0-80.0) % Lymph % (Auto) (16.0-40.0) % [place] % (Auto) (0.0-15.0) % Eos % (Auto) (0.0-7.0) % Baso % (Auto) (0.0-1.5) % Neut # (Auto) (1.4-5.7) K/uL Lymph # (Auto) (0.6-2.4) K/uL [place] # (Auto) (0.0-0.8) K/uL Eos # (Auto) (0.0-0.7) K/uL Baso # (Auto) (0.0-0.1) K/uL Add Manual Diff Neutrophils % (Manual) (48.0-80.0) % Band Neutrophils % % Lymphocytes % (Manual) (16.0-40.0) % Monocytes % (Manual) (0.0-15.0) % Nucleated RBC % /100WBC Absolute Seg Neuts (1.4-5.7) Band Neutrophils # Lymphocytes # (Manual) (0.6-2.4) Monocytes # (Manual) (0.0-0.8) Nucleated RBCs # K/uL Sodium 135 L (136-148) mmol/L Potassium 4.0 (3.5-5.1) mmol/L Chloride 98 (98-107) mmol/L Carbon Dioxide 22.6 (21.0-32.0) mmol/L BUN 56 H (7.0-18.0) mg/dL Creatinine 2.2 H (0.8-1.3) mg/dL Est Cr Clr Drug Dosing 43.48 mL/min Estimated GFR (MDRD) 35.8 ml/min Glucose 111 H (74-106) mg/dL Calcium 9.0 (8.5-10.1) mg/dL Total Bilirubin (0.2-1.0) mg/dL AST (15-37) IU/L ALT (14-63) IU/L Alkaline Phosphatase (46-116) U/L Creatine Kinase 685 H (26-308) U/L Total Protein (6.4-8.2) g/dL Albumin (3.4-5.0) g/dL Globulin (2.0-3.5) g/dL Albumin/Globulin Ratio (1.3-2.8) Lipase (73-393) U/L Ur Random Creatinine 247.2 mg/dL Ur Random Sodium 31.0 L (40.0-220.0) mmol/L Ethyl Alcohol mg/dL H. pylori IgG Antibody NEGATIVE (NEG) 01/25/18 01/25/18 01/25/18 Range/Units 05:00 05:00 05:00 WBC 12.34 H (4.0-11.0) K/uL RBC 4.81 (4.50-5.90) M/uL Hgb 14.6 (13.0-17.0) g/dL Hct 40.6 (38.0-50.0) % MCV 84.4 (80.0-98.0) fL MCH 30.4 (27.0-32.0) pg MCHC 36.0 (31.0-37.0) g/dL RDW Std Deviation 40.1 (28.0-62.0) fl RDW Coeff of Kathryn 13 (11.0-15.0) % Plt Count 249 (150-400) K/uL MPV 9.60 (7.40-12.00) fL Neut % (Auto) (48.0-80.0) % Lymph % (Auto) (16.0-40.0) % [place] % (Auto) (0.0-15.0) % Eos % (Auto) (0.0-7.0) % Baso % (Auto) (0.0-1.5) % Neut # (Auto) (1.4-5.7) K/uL Lymph # (Auto) (0.6-2.4) K/uL [place] # (Auto) (0.0-0.8) K/uL Eos # (Auto) (0.0-0.7) K/uL Baso # (Auto) (0.0-0.1) K/uL Add Manual Diff YES Neutrophils % (Manual) 63 (48.0-80.0) % Band Neutrophils % 3 % Lymphocytes % (Manual) 23 (16.0-40.0) % Monocytes % (Manual) 11 (0.0-15.0) % Nucleated RBC % 0.0 /100WBC Absolute Seg Neuts 7.8 H (1.4-5.7) Band Neutrophils # 0.4 Lymphocytes # (Manual) 2.8 H (0.6-2.4) Monocytes # (Manual) 1.4 H (0.0-0.8) Nucleated RBCs # 0 K/uL Sodium 135 L (136-148) mmol/L Potassium 3.6 (3.5-5.1) mmol/L Chloride 102 (98-107) mmol/L Carbon Dioxide 22.3 (21.0-32.0) mmol/L BUN 38 H (7.0-18.0) mg/dL Creatinine 1.3 (0.8-1.3) mg/dL Est Cr Clr Drug Dosing 73.59 mL/min Estimated GFR (MDRD) > 60.0 ml/min Glucose 96 (74-106) mg/dL Calcium 8.4 L (8.5-10.1) mg/dL Total Bilirubin (0.2-1.0) mg/dL AST (15-37) IU/L ALT (14-63) IU/L Alkaline Phosphatase (46-116) U/L Creatine Kinase 511 H (26-308) U/L Total Protein (6.4-8.2) g/dL Albumin (3.4-5.0) g/dL Globulin (2.0-3.5) g/dL Albumin/Globulin Ratio (1.3-2.8) Lipase (73-393) U/L Ur Random Creatinine mg/dL Ur Random Sodium (40.0-220.0) mmol/L Ethyl Alcohol mg/dL H. pylori IgG Antibody (NEG) Med Orders - Current: Current Medications Discontinued Medications Folic Acid (Folic Acid) 1 mg PO BEDTIME MICHELLE Last Admin: 01/24/18 20:04 Dose: 1 mg Sodium Chloride (Normal Saline) 1,000 mls @ 999 mls/hr IV STAT ONE Stop: 01/24/18 13:52 Last Admin: 01/24/18 13:07 Dose: 999 mls/hr Sodium Chloride (Normal Saline) 1,000 mls @ 150 mls/hr IV STAT MICHELLE Last Admin: 01/24/18 15:48 Dose: 150 mls/hr Sodium Chloride (Normal Saline) 1,000 mls @ 175 mls/hr IV ASDIRECTED MICHELLE Thiamine HCl 100 mg/ Sodium (Chloride) 101 mls @ 202 mls/hr IV ONETIME ONE Stop: 01/24/18 14:50 Last Admin: 01/24/18 16:03 Dose: Not Given Potassium Chloride/Sodium Chloride (Normal Saline With 20 Meq Kcl) 1,000 mls @ 150 mls/hr IV ASDIRECTED MICHELLE Last Admin: 01/24/18 16:04 Dose: 150 mls/hr Sodium Chloride (Normal Saline) 1,000 mls @ 999 mls/hr IV ASDIRECTED MICHELLE Sodium Chloride (Normal Saline) 1,000 mls @ 150 mls/hr IV ASDIRECTED MICHELLE Last Admin: 01/25/18 02:59 Dose: 150 mls/hr Lorazepam (Ativan) 0 mg IVPUSH ONETIME ONE; Protocol Stop: 01/24/18 15:08 Last Admin: 01/24/18 15:51 Dose: 1 mg Ondansetron HCl (Zofran) 8 mg IVPUSH ONETIME ONE Stop: 01/24/18 12:53 Last Admin: 01/24/18 13:08 Dose: 8 mg Ondansetron HCl (Zofran) 4 mg IVPUSH Q4H PRN PRN Reason: Nausea Last Admin: 01/24/18 22:18 Dose: 4 mg Pantoprazole Sodium (Protonix Iv) 80 mg IVPUSH .BOLUS ONE Stop: 01/24/18 12:53 Last Admin: 01/24/18 13:09 Dose: 80 mg Promethazine HCl (Phenergan) 12.5 mg IM Q4H PRN PRN Reason: Nausea/Vomiting Thiamine HCl (Vitamin B-1) 100 mg IV ONETIME ONE Stop: 01/24/18 15:46 Last Admin: 01/24/18 15:59 Dose: 100 mg
--- NOTE | 2018-01-25 15:35 | CR ---
EXAM DATE: 01/24/18 PATIENT'S AGE: 27 Patient: FRANK VARGAS Facility: [place], [place] Site . Site : 1990 Study: XRay Abdomen [id number]/10/2018 2:52:04 PM Ordering Physician: Mana Limon Final Report: INDICATION: vomiting INDICATION: Vomiting. TECHNIQUE: Abdomen 3 view. COMPARISON: None FINDINGS: Bowel: Bowel pattern is normal. Soft tissues: No sign of free air. No sign of soft tissue mass. No suspicious calcifications. Bones: Unremarkable for age. IMPRESSION: Normal abdominal gas pattern. Dictated by Kavin Fermin MD @ 01/24/2018 2:55:15 PM Dictated by: Kavin Fermin MD @ 01/24/2018 14:55:22 (Electronic Signature) Report Signed by Proxy. [email or web address]
--- NOTE | 2018-01-25 15:40 | CT ---
EXAM DATE: 01/24/18 PATIENT'S AGE: 27 Patient: FRANK VARGAS Facility: [place], [place] Site . Site : 1990 Study: CT Abdomen/Pelvis [id number]/10/2018 4:34:39 PM Ordering Physician: Abhi Oliveros Final Report: HISTORY: Abdominal pain. TECHNIQUE: Noncontrast CT of the abdomen and pelvis. COMPARISON: No prior. FINDINGS: There is no focal liver parenchymal abnormality. Gallbladder does not appear overly distended. Spleen size within normal limits. Adrenal glands are normal. No focal pancreatic abnormality or acute peripancreatic inflammatory change. No hydronephrosis. No obstructive urinary calculus. No renal mass. Urinary bladder is grossly unremarkable. - No small bowel obstruction. No appendicitis. No diverticulitis. No fluid collection or free air. No adenopathy. - No acute bony abnormality. - Lung bases are clear of infiltrate. There is no pleural effusion. IMPRESSION: 1. No acute process within the abdomen or pelvis. 2. No identified cause of the patient`s pain. Dictated by Tayo Dunlap MD @ 01/24/2018 4:45:45 PM Please note that all CT scans at this facility use dose modulation, iterative reconstruction, and/or weight-based dosing when appropriate to reduce radiation dose to as low as reasonably achievable. Dictated by: Tayo Dunlap MD @ 01/24/2018 16:45:51 (Electronic Signature) Report Signed by Proxy. [facility]
== END 2018-01-25 11:30 | disposition home or self-care (01) | DRG 392 ==
LOC: MW.ED 12:49 → MW.MS 14:58
PROVIDERS: ADMIT Internal Medicine; ATTEND Internal Medicine
DX: K29.20 Alcoholic gastritis without bleeding (principal); N17.9 Acute kidney failure, unspecified; E86.0 Dehydration; R74.8 Abnormal levels of other serum enzymes; F32.9 Major depressive disorder, single episode, unspecified; F10.20 Alcohol dependence, uncomplicated; Z79.899 Other long term (current) drug therapy
CPT/HCPCS: 36415; 51798; 74019; 74019-26; 74176; 74176-26; 80048; 80053; 82550; 82570; 83690; 84300; 85025; 86677; 96361; 96374; 96375; 99285-25; A9270-GY; C9113; G0480; J2060; J2405; J3411; J3480; J7040

== ENCOUNTER 2018-03-07 13:48 | Observation (INO) | payer MEDICAID, OTHER ==
[2018-03-07] MEDS ORDERED: Pantoprazole 40 MG Vial IVPUSH ONE (13:50)
[2018-03-07] MEDS ORDERED: MVI, Adult with Vitamin K 10 ML, Thiamine 100 MG, Folic Acid 1 MG in Sodium Chloride 0.... IV ONE ×4 (13:50)
[2018-03-07] MEDS ORDERED: Ondansetron 4 MG/2 ML SDV IVPUSH ONE ×2 (13:50→18:04)
--- NOTE | 2018-03-07 13:52 | EDM.PDOC ---
ED HPI GENERAL MEDICAL PROBLEM - General Chief Complaint: Gastrointestinal Problem Stated Complaint: VOMITING Time Seen by Provider: 03/07/18 13:51 Source of Information: Reports: Patient - History of Present Illness INITIAL COMMENTS - FREE TEXT/NARRATIVE: HISTORY AND PHYSICAL: History of present illness: [Issue presents with intractable vomiting His been admitted for similar symptoms previously scheduled for upper endoscopy in a week He is known to use alcohol and smoke marijuana daily] Review of systems: As per history of present illness and below otherwise all systems reviewed and negative. Past medical history: As per history of present illness and as reviewed below otherwise noncontributory. Surgical history: As per history of present illness and as reviewed below otherwise noncontributory. Social history: No reported history of drug or alcohol abuse. Family history: As per history of present illness and as reviewed below otherwise noncontributory. Physical exam: HEENT: Atraumatic, normocephalic, pupils reactive, negative for conjunctival pallor or scleral icterus, mucous membranes moist, throat clear, neck supple, nontender, trachea midline. Lungs: Clear to auscultation, breath sounds equal bilaterally, chest nontender. Heart: S1S2, regular, negative for clicks, rubs, or JVD. Abdomen: Soft, nondistended, nontender. Negative for masses or hepatosplenomegaly. Negative for costovertebral tenderness. Pelvis: Stable nontender. Genitourinary: Deferred. Rectal: Deferred. Extremities: Atraumatic, negative for cords or calf pain. Neurovascular unremarkable. Neuro: Awake, alert, oriented. Cranial nerves II through XII unremarkable. Cerebellum unremarkable. Motor and sensory unremarkable throughout. Exam nonfocal. Diagnostics: [CBC CMP UA lipase troponin alcohol level Chest 1 view Abdomen flat and upright ] EKG Therapeutics: [Banana Bag Proton X 80 mg IV Phenergan 25 mg IM Zofran 8 mg IV Ativan 1 mg IV Vancomycin 1 g IV Zosyn 3.375 g IV ] Impression: Hypotension Rule out sepsis Diaphoretic [Intractable vomiting Alcohol use abuse and dependence by history , his states he has been sober for several months ]Daily marijuana use-possibly cyclic vomiting secondary to this Definitive disposition and diagnosis as appropriate pending reevaluation and review of above. Abdominal Pain Score (Numeric/FACES): 8 - Related Data Allergies Allergy/AdvReac Type Severity Reaction Status Date / Time No Known Allergies Allergy Verified 03/07/18 14:03 Home Meds: Home Meds FLUoxetine HCl [Prozac] 20 mg PO DAILY 11/12/17 [History] cloNIDine [Catapres] 0.1 mg PO BID 11/12/17 [History] Promethazine [Phenergan] 25 mg PO TID PRN 03/07/18 [History] Past Medical History - Past Health History Medical/Surgical History: Denies Medical/Surgical History HEENT History: Reports: None Cardiovascular History: Reports: None Respiratory History: Reports: None Gastrointestinal History: Reports: None Genitourinary History: Reports: None Musculoskeletal History: Reports: Other (See Below) Other Musculoskeletal History: club feet Neurological History: Reports: None Psychiatric History: Reports: None Endocrine/Metabolic History: Reports: None Hematologic History: Reports: None Immunologic History: Reports: None Oncologic (Cancer) History: Reports: None Dermatologic History: Reports: None - Infectious Disease History Infectious Disease History: Reports: Chicken Pox - Past Surgical History Head Surgeries/Procedures: Reports: None Male Surgical History: Reports: None Musculoskeletal Surgical History: Reports: Other (See Below) Other Musculoskeletal Surgeries/Procedures:: repair of club feet Social & Family History - Family History Family Medical History: Noncontributory - Caffeine Use Caffeine Use: Reports: None Other Caffeine Use: Occasionally ED ROS GENERAL - Review of Systems Review Of Systems: See Below ED EXAM, GENERAL - Physical Exam Exam: See Below Course - Vital Signs Last Recorded V/S: Last Vital Signs Temp 98 F 03/07/18 15:36 Pulse 50 L 03/07/18 15:36 Resp 19 03/07/18 15:36 BP 110/50 L 03/07/18 15:36 Pulse Ox 95 03/07/18 15:36 - Orders/Labs/Meds Orders: Active Orders 24 hr Category Date Time Status EKG Documentation Completion [RC] STAT Care 03/07/18 13:51 Active EKG Documentation Completion [RC] STAT Care 03/07/18 13:52 Inactive Abdomen 2V AP Flat Upright [CR] Stat Exams 03/07/18 13:51 Taken Chest 1V Frontal [CR] Stat Exams 03/07/18 13:51 Taken CULTURE BLOOD [BC] Stat Lab 03/07/18 15:31 Ordered CULTURE BLOOD [BC] Stat Lab 03/07/18 15:31 Ordered DRUG SCREEN, URINE [URCHEM] Stat Lab 03/07/18 16:11 Ordered UA W/MICROSCOPIC [URIN] Stat Lab 03/07/18 16:11 Ordered Vancomycin [Vancocin] 1 gm Med 03/07/18 15:32 Active Sodium Chloride 0.9% [Normal Saline] 250 ml IV ONETIME Blood Culture x2 Reflex Set [OM.PC] Stat Oth 03/07/18 15:31 Ordered Medication Orders Vancomycin HCl 1 gm/ Sodium (Chloride) 250 mls @ 250 mls/hr IV ONETIME ONE Stop: 03/07/18 16:31 Labs: Laboratory Tests 03/07/18 03/07/18 03/07/18 Range/Units 13:54 13:54 13:54 WBC 8.61 (4.0-11.0) K/uL RBC 5.56 (4.50-5.90) M/uL Hgb 16.9 (13.0-17.0) g/dL Hct 46.7 (38.0-50.0) % MCV 84.0 (80.0-98.0) fL MCH 30.4 (27.0-32.0) pg MCHC 36.2 (31.0-37.0) g/dL RDW Std Deviation 38.1 (28.0-62.0) fl RDW Coeff of Kathryn 13 (11.0-15.0) % Plt Count 283 (150-400) K/uL MPV 9.50 (7.40-12.00) fL Neut % (Auto) 56.2 (48.0-80.0) % Lymph % (Auto) 31.2 (16.0-40.0) % [place] % (Auto) 6.9 (0.0-15.0) % Eos % (Auto) 4.4 (0.0-7.0) % Baso % (Auto) 1.3 (0.0-1.5) % Neut # (Auto) 4.8 (1.4-5.7) K/uL Lymph # (Auto) 2.7 H (0.6-2.4) K/uL [place] # (Auto) 0.6 (0.0-0.8) K/uL Eos # (Auto) 0.4 (0.0-0.7) K/uL Baso # (Auto) 0.1 (0.0-0.1) K/uL Nucleated RBC % 0.0 /100WBC Nucleated RBCs # 0 K/uL Lactate 3.5 H (0.20-2.00) mmol/L Sodium 140 (136-148) mmol/L Potassium 3.4 L (3.5-5.1) mmol/L Chloride 105 (98-107) mmol/L Carbon Dioxide 21.7 (21.0-32.0) mmol/L BUN 13 (7.0-18.0) mg/dL Creatinine 1.1 (0.8-1.3) mg/dL Est Cr Clr Drug Dosing TNP Estimated GFR (MDRD) > 60.0 ml/min Glucose 102 (74-106) mg/dL Calcium 10.0 (8.5-10.1) mg/dL Total Bilirubin 0.4 (0.2-1.0) mg/dL AST 21 (15-37) IU/L ALT 23 (14-63) IU/L Alkaline Phosphatase 51 (46-116) U/L Troponin I < 0.050 (0.000-0.056) ng/mL Total Protein 8.2 (6.4-8.2) g/dL Albumin 5.2 H (3.4-5.0) g/dL Globulin 3.0 (2.0-3.5) g/dL Albumin/Globulin Ratio 1.7 (1.3-2.8) Lipase 221 (73-393) U/L Ethyl Alcohol 3 mg/dL Meds: Medications Generic Name Dose Route Start Last Admin Trade Name Freq PRN Reason Stop Dose Admin Vancomycin HCl 1 gm/ Sodium 250 mls @ 250 mls/hr 03/07/18 15:32 Chloride IV 03/07/18 16:31 ONETIME ONE Discontinued Medications Generic Name Dose Route Start Last Admin Trade Name Freq PRN Reason Stop Dose Admin Multivitamins/Minerals 10 ml/ 1,011.2 mls @ 999 mls/hr 03/07/18 13:50 14:08 Thiamine HCl 100 mg/ Folic IV 03/07/18 14:50 999 mls/hr Acid 1 mg/ Sodium Chloride ONETIME ONE Administration Sodium Chloride 1,000 mls @ 999 mls/hr 03/07/18 14:57 03/07/18 15:20 Normal Saline IV 03/07/18 15:57 999 mls/hr STAT ONE Administration Piperacillin Sod/Tazobactam 50 mls @ 100 mls/hr 03/07/18 15:32 Sod 3.375 gm/ Sodium Chloride IV 03/07/18 16:01 ONETIME ONE Lorazepam 1 mg 03/07/18 14:55 03/07/18 15:18 Ativan IVPUSH 03/07/18 14:56 1 mg ONETIME ONE Administration Ondansetron HCl 8 mg 03/07/18 13:50 03/07/18 14:01 Zofran IVPUSH 03/07/18 13:51 8 mg ONETIME ONE Administration Pantoprazole Sodium 80 mg 03/07/18 13:50 03/07/18 14:01 Protonix Iv IVPUSH 03/07/18 13:51 80 mg .BOLUS ONE Administration Promethazine HCl 25 mg 03/07/18 13:55 03/07/18 14:00 Phenergan IM 03/07/18 13:56 25 mg ONETIME ONE Administration Departure - Departure Time of Disposition: 16:18 Disposition: Refer to Observation Condition: Poor Clinical Impression: Intractable vomiting - Discharge Information Referrals: PCP,Unknown [Primary Care Provider] - Forms: ED Department Discharge - My Orders Last 24 Hours: My Active Orders 03/07/18 13:51 EKG Documentation Completion [RC] STAT Abdomen 2V AP Flat Upright [CR] Stat Chest 1V Frontal [CR] Stat 03/07/18 13:52 EKG Documentation Completion [RC] STAT 03/07/18 15:31 CULTURE BLOOD [BC] Stat CULTURE BLOOD [BC] Stat Blood Culture x2 Reflex Set [OM.PC] Stat 03/07/18 15:32 Vancomycin [Vancocin] 1 gm Sodium Chloride 0.9% [Normal Saline] 250 ml IV ONETIME 03/07/18 16:11 DRUG SCREEN, URINE [URCHEM] Stat UA W/MICROSCOPIC [URIN] Stat - Assessment/Plan Last 24 Hours: My Active Orders 03/07/18 13:51 EKG Documentation Completion [RC] STAT Abdomen 2V AP Flat Upright [CR] Stat Chest 1V Frontal [CR] Stat 03/07/18 13:52 EKG Documentation Completion [RC] STAT 03/07/18 15:31 CULTURE BLOOD [BC] Stat CULTURE BLOOD [BC] Stat Blood Culture x2 Reflex Set [OM.PC] Stat 03/07/18 15:32 Vancomycin [Vancocin] 1 gm Sodium Chloride 0.9% [Normal Saline] 250 ml IV ONETIME 03/07/18 16:11 DRUG SCREEN, URINE [URCHEM] Stat UA W/MICROSCOPIC [URIN] Stat
[2018-03-07] MEDS ORDERED: Promethazine 25 MG/ML SDV IM ONE (13:55)
[2018-03-07 14:29] LABS: CHLORIDE,CL 105 mmol/L (98-107); SODIUM,NA 140 mmol/L (136-148)
[2018-03-07] MEDS ORDERED: LORazepam 2 MG/ML SDV IVPUSH ONE (14:55)
[2018-03-07] MEDS ORDERED: Sodium Chloride 0.9% 1,000 ML IV ONE ×2 (14:57→16:34)
[2018-03-07] MEDS ORDERED: Piperacillin/Tazobactam 3.375 GM in Sodium Chloride 0.9% 50 ML IV ONE (15:32)
[2018-03-07] MEDS ORDERED: Sodium Chloride 0.9% 2.5 ML Syringe FLUSH PRN (18:00)
[2018-03-07] MEDS ORDERED: Sodium Chloride 0.9% 10 ML Syringe FLUSH PRN (18:00)
[2018-03-07] MEDS ORDERED: Albuterol/Ipratropium 3.0-0.5 MG/3 ML Neb Soln NEB PRN (18:00)
[2018-03-07] MEDS ORDERED: Potassium Chloride 20 MEQ Tab.ER PO ONE ×2 (18:10→22:06)
[2018-03-07] MEDS ORDERED: Potassium Chloride 40 MEQ in Sodium Chloride 0.9% 500 ML IV ONE (18:20)
[2018-03-07] MEDS: Metoclopramide 10 MG/2 ML SDV IVPUSH SCH (18:27)
[2018-03-07] MEDS ORDERED: Piperacillin/Tazobactam 4.5 GM in Sodium Chloride 0.9% 100 ML IV ONE (22:00)
[2018-03-07] MEDS ORDERED: Ondansetron 4 MG/2 ML SDV IVPUSH PRN (22:05)
[2018-03-07] MEDS ORDERED: LORazepam 2 MG/ML SDV IVPUSH PRN (23:39)
--- NOTE | 2018-03-07 23:44 | PCM.SN ---
- Free Text/Narrative Note: tammie Childers dictated:[id number]
--- NOTE | 2018-03-07 23:44 | PCM.HP ---
H&P History of Present Illness - General Admit Problem/Dx: Admission Diagnosis/Problem Admission Diagnosis/Problem Hypotension Abdominal Pain Score (Numeric/FACES): 9 - Related Data Allergies/Adverse Reactions: Allergies Allergy/AdvReac Type Severity Reaction Status Date / Time No Known Allergies Allergy Verified 03/07/18 14:03 Home Medications: Home Meds FLUoxetine HCl [Prozac] 20 mg PO DAILY 11/12/17 [History] cloNIDine [Catapres] 0.1 mg PO BID 11/12/17 [History] Promethazine [Phenergan] 25 mg PO TID PRN 03/07/18 [History] Past Medical History - Past Health History Medical/Surgical History: Denies Medical/Surgical History HEENT History: Reports: None Cardiovascular History: Reports: None Respiratory History: Reports: None Gastrointestinal History: Reports: None Other Gastrointestinal History: abdominal pain Genitourinary History: Reports: None Musculoskeletal History: Reports: Other (See Below) Other Musculoskeletal History: club feet Neurological History: Reports: None Psychiatric History: Reports: None Endocrine/Metabolic History: Reports: None Hematologic History: Reports: None Immunologic History: Reports: None Oncologic (Cancer) History: Reports: None Dermatologic History: Reports: None - Infectious Disease History Infectious Disease History: Reports: Chicken Pox - Past Surgical History Head Surgeries/Procedures: Reports: None Male Surgical History: Reports: None Musculoskeletal Surgical History: Reports: Other (See Below) Other Musculoskeletal Surgeries/Procedures:: repair of club feet Social & Family History - Family History Family Medical History: Noncontributory - Tobacco Use Smoking Status *Q: Current Every Day Smoker Years of Tobacco use: 13 Packs/Tins Daily: 0.5 Used Tobacco, but Quit: No Second Hand Smoke Exposure: Yes - Caffeine Use Caffeine Use: Reports: None Other Caffeine Use: Occasionally - Alcohol Use Days Per Week of Alcohol Use: 7 Number of Drinks Per Day: 1 Total Drinks Per Week: 7 Date of Last Drink: 02/05/18 - Recreational Drug Use Recreational Drug Use: Yes Drug Use in Last 12 Months: Yes Recreational Drug Type: Reports: Marijuana/Hashish Recreational Drug Use Frequency: Daily Exam - Vital Signs Vital Signs: Last Vital Signs Temp 98.2 F 03/07/18 20:00 Pulse 46 L 03/07/18 20:00 Resp 16 03/07/18 20:00 BP 121/86 03/07/18 20:00 Pulse Ox 97 03/07/18 20:00 Weight: 148 lb 11.2 oz - Patient Data Lab Results Last 24 hrs: Laboratory Results - last 24 hr 03/07/18 03/07/18 03/07/18 Range/Units 13:54 13:54 13:54 WBC 8.61 (4.0-11.0) K/uL RBC 5.56 (4.50-5.90) M/uL Hgb 16.9 (13.0-17.0) g/dL Hct 46.7 (38.0-50.0) % MCV 84.0 (80.0-98.0) fL MCH 30.4 (27.0-32.0) pg MCHC 36.2 (31.0-37.0) g/dL RDW Std Deviation 38.1 (28.0-62.0) fl RDW Coeff of Kathryn 13 (11.0-15.0) % Plt Count 283 (150-400) K/uL MPV 9.50 (7.40-12.00) fL Neut % (Auto) 56.2 (48.0-80.0) % Lymph % (Auto) 31.2 (16.0-40.0) % [place] % (Auto) 6.9 (0.0-15.0) % Eos % (Auto) 4.4 (0.0-7.0) % Baso % (Auto) 1.3 (0.0-1.5) % Neut # (Auto) 4.8 (1.4-5.7) K/uL Lymph # (Auto) 2.7 H (0.6-2.4) K/uL [place] # (Auto) 0.6 (0.0-0.8) K/uL Eos # (Auto) 0.4 (0.0-0.7) K/uL Baso # (Auto) 0.1 (0.0-0.1) K/uL Nucleated RBC % 0.0 /100WBC Nucleated RBCs # 0 K/uL Lactate 3.5 H (0.20-2.00) mmol/L Sodium 140 (136-148) mmol/L Potassium 3.4 L (3.5-5.1) mmol/L Chloride 105 (98-107) mmol/L Carbon Dioxide 21.7 (21.0-32.0) mmol/L BUN 13 (7.0-18.0) mg/dL Creatinine 1.1 (0.8-1.3) mg/dL Est Cr Clr Drug Dosing TNP Estimated GFR (MDRD) > 60.0 ml/min Glucose 102 (74-106) mg/dL Calcium 10.0 (8.5-10.1) mg/dL Total Bilirubin 0.4 (0.2-1.0) mg/dL AST 21 (15-37) IU/L ALT 23 (14-63) IU/L Alkaline Phosphatase 51 (46-116) U/L Troponin I < 0.050 (0.000-0.056) ng/mL Total Protein 8.2 (6.4-8.2) g/dL Albumin 5.2 H (3.4-5.0) g/dL Globulin 3.0 (2.0-3.5) g/dL Albumin/Globulin Ratio 1.7 (1.3-2.8) Lipase 221 (73-393) U/L Urine Color Urine Appearance Urine pH (5.0-8.0) Ur Specific [place] (1.001-1.035) Urine Protein (NEGATIVE) mg/dL Urine Glucose (UA) (NEGATIVE) mg/dL Urine Ketones (NEGATIVE) mg/dL Urine Occult Blood (NEGATIVE) Urine Nitrite (NEGATIVE) Urine Bilirubin (NEGATIVE) Urine Ictotest Urine Urobilinogen (<2.0) EU/dL Ur Leukocyte Esterase (NEGATIVE) Urine RBC (0-2/HPF) Urine WBC (0-5/HPF) Ur Epithelial Cells (NONE-FEW) Calcium Oxalate Crystal (NEGATIVE) Amorphous Sediment (NEGATIVE) Urine Bacteria (NEGATIVE) Urine Mucus (NONE-MOD) Urine Opiates Screen (NEGATIVE) Ur Oxycodone Screen (NEGATIVE) Urine Methadone Screen (NEGATIVE) Ur Barbiturates Screen (NEGATIVE) Ur Phencyclidine Scrn (NEGATIVE) Ur Amphetamine Screen (NEGATIVE) U Methamphetamines Scrn (NEGATIVE) U Benzodiazepines Scrn (NEGATIVE) U Cocaine Metab Screen (NEGATIVE) U Marijuana (THC) Screen (NEGATIVE) Ethyl Alcohol 3 mg/dL 03/07/18 03/07/18 03/07/18 Range/Units 16:11 16:11 20:31 WBC (4.0-11.0) K/uL RBC (4.50-5.90) M/uL Hgb (13.0-17.0) g/dL Hct (38.0-50.0) % MCV (80.0-98.0) fL MCH (27.0-32.0) pg MCHC (31.0-37.0) g/dL RDW Std Deviation (28.0-62.0) fl RDW Coeff of Kathryn (11.0-15.0) % Plt Count (150-400) K/uL MPV (7.40-12.00) fL Neut % (Auto) (48.0-80.0) % Lymph % (Auto) (16.0-40.0) % [place] % (Auto) (0.0-15.0) % Eos % (Auto) (0.0-7.0) % Baso % (Auto) (0.0-1.5) % Neut # (Auto) (1.4-5.7) K/uL Lymph # (Auto) (0.6-2.4) K/uL [place] # (Auto) (0.0-0.8) K/uL Eos # (Auto) (0.0-0.7) K/uL Baso # (Auto) (0.0-0.1) K/uL Nucleated RBC % /100WBC Nucleated RBCs # K/uL Lactate 2.9 H (0.20-2.00) mmol/L Sodium (136-148) mmol/L Potassium (3.5-5.1) mmol/L Chloride (98-107) mmol/L Carbon Dioxide (21.0-32.0) mmol/L BUN (7.0-18.0) mg/dL Creatinine (0.8-1.3) mg/dL Est Cr Clr Drug Dosing Estimated GFR (MDRD) ml/min Glucose (74-106) mg/dL Calcium (8.5-10.1) mg/dL Total Bilirubin (0.2-1.0) mg/dL AST (15-37) IU/L ALT (14-63) IU/L Alkaline Phosphatase (46-116) U/L Troponin I (0.000-0.056) ng/mL Total Protein (6.4-8.2) g/dL Albumin (3.4-5.0) g/dL Globulin (2.0-3.5) g/dL Albumin/Globulin Ratio (1.3-2.8) Lipase (73-393) U/L Urine Color DARK YELLOW Urine Appearance CLOUDY Urine pH 6.0 (5.0-8.0) Ur Specific [place] >= 1.030 (1.001-1.035) Urine Protein TRACE (NEGATIVE) mg/dL Urine Glucose (UA) NEGATIVE (NEGATIVE) mg/dL Urine Ketones TRACE H (NEGATIVE) mg/dL Urine Occult Blood NEGATIVE (NEGATIVE) Urine Nitrite NEGATIVE (NEGATIVE) Urine Bilirubin SMALL H (NEGATIVE) Urine Ictotest NEGATIVE Urine Urobilinogen 0.2 (<2.0) EU/dL Ur Leukocyte Esterase NEGATIVE (NEGATIVE) Urine RBC 0-2 (0-2/HPF) Urine WBC 0-2 (0-5/HPF) Ur Epithelial Cells FEW (NONE-FEW) Calcium Oxalate Crystal FEW (NEGATIVE) Amorphous Sediment MODERATE (NEGATIVE) Urine Bacteria 3+ H (NEGATIVE) Urine Mucus MODERATE (NONE-MOD) Urine Opiates Screen NEGATIVE (NEGATIVE) Ur Oxycodone Screen NEGATIVE (NEGATIVE) Urine Methadone Screen NEGATIVE (NEGATIVE) Ur Barbiturates Screen NEGATIVE (NEGATIVE) Ur Phencyclidine Scrn NEGATIVE (NEGATIVE) Ur Amphetamine Screen NEGATIVE (NEGATIVE) U Methamphetamines Scrn NEGATIVE (NEGATIVE) U Benzodiazepines Scrn NEGATIVE (NEGATIVE) U Cocaine Metab Screen NEGATIVE (NEGATIVE) U Marijuana (THC) Screen POSITIVE (NEGATIVE) Ethyl Alcohol mg/dL Result Diagrams: 03/07/18 13:54 03/07/18 13:54 Orders Last 24hrs: Active Orders 24 hr Category Date Time Status Admission Status [Patient Status] [ADT] Stat ADT 03/07/18 16:19 Active EKG Documentation Completion [RC] STAT Care 03/07/18 13:52 Inactive Oxygen Therapy [RC] PRN Care 03/07/18 18:00 Active Pulse Oximetry [RC] PRN Care 03/07/18 18:00 Active RT Aerosol Therapy [RC] ASDIRECTED Care 03/07/18 18:02 Active Telemetry Monitoring [Cardiac Monitoring] [RC] Q8H Care 03/07/18 16:59 Active Up ad Patricia [RC] ASDIRECTED Care 03/07/18 18:00 Active VTE/DVT Education [RC] PER UNIT ROUTINE Care 03/07/18 18:00 Active Vital Signs [RC] Q4H Care 03/07/18 18:00 Active Nothing per Oral Now Diet [DIET] Diet 03/07/18 Dinner Active Abdomen 2V AP Flat Upright [CR] Stat Exams 03/07/18 13:51 Taken Chest 1V Frontal [CR] Stat Exams 03/07/18 13:51 Taken CBC WITH AUTO DIFF [HEME] AM Lab 03/08/18 05:11 Ordered CBC WITH AUTO DIFF [HEME] AM Lab 03/09/18 05:11 Ordered CBC WITH AUTO DIFF [HEME] AM Lab 03/10/18 05:11 Ordered CBC WITH AUTO DIFF [HEME] AM Lab 03/11/18 05:11 Ordered COMPREHENSIVE METABOLIC PN,CMP [CHEM] AM Lab 03/08/18 05:11 Ordered COMPREHENSIVE METABOLIC PN,CMP [CHEM] AM Lab 03/09/18 05:11 Ordered COMPREHENSIVE METABOLIC PN,CMP [CHEM] AM Lab 03/10/18 05:11 Ordered COMPREHENSIVE METABOLIC PN,CMP [CHEM] AM Lab 03/11/18 05:11 Ordered COMPREHENSIVE METABOLIC PN,CMP [CHEM] AM Lab 03/12/18 05:11 Ordered CULTURE BLOOD [BC] Stat Lab 03/07/18 15:58 Received CULTURE BLOOD [BC] Stat Lab 03/07/18 16:28 Received CULTURE URINE [RM] Stat Lab 03/07/18 16:10 Received DRUG SCREEN, URINE [URCHEM] Stat Lab 03/07/18 16:11 Ordered MAGNESIUM [CHEM] AM Lab 03/08/18 05:11 Ordered MAGNESIUM [CHEM] AM Lab 03/09/18 05:11 Ordered MAGNESIUM [CHEM] AM Lab 03/10/18 05:11 Ordered MAGNESIUM [CHEM] AM Lab 03/11/18 05:11 Ordered UA W/MICROSCOPIC [URIN] Stat Lab 03/07/18 16:11 Ordered Albuterol/Ipratropium [DuoNeb 3.0-0.5 MG/3 ML] Med 03/07/18 18:00 Active 3 ml NEB Q4HRRT PRN Lactated Ringers [Ringers, Lactated] 1,000 ml Med 03/07/18 18:15 Active IV ASDIRECTED Metoclopramide [Reglan] Med 03/07/18 18:30 Active 10 mg IVPUSH Q6H Ondansetron [Zofran] Med 03/07/18 22:05 Active 4 mg IVPUSH Q6H PRN Piperacillin/Tazobactam [Piperacil-Tazobact] 4.5 gm Med 03/08/18 06:00 Active Sodium Chloride 0.9% [Normal Saline] 100 ml IV Q6H Sodium Chloride 0.9% [Normal Saline] 500 ml Med 03/07/18 21:45 Active IV .BOLUS Sodium Chloride 0.9% [Saline Flush] Med 03/07/18 18:00 Active 10 ml FLUSH ASDIRECTED PRN Sodium Chloride 0.9% [Saline Flush] Med 03/07/18 18:00 Active 2.5 ml FLUSH ASDIRECTED PRN Vancomycin Pharmacy to Dose [Pharmacy to Dose - Med 03/07/18 21:30 Pending Vancomycin] See Dose Instructions .XX ASDIRECTED Vancomycin [Vancocin] 1 gm Med 03/07/18 23:00 Active Sodium Chloride 0.9% [Normal Saline] 250 ml IV Q8H Blood Culture x2 Reflex Set [OM.PC] Stat Ot 03/07/18 15:31 Ordered Peripheral IV Insertion Adult [OM.PC] Routine Oth 03/07/18 18:00 Ordered Sequential Compression Device [OM.PC] Per Unit Routine Ot 03/07/18 18:01 Ordered Resuscitation Status Routine Resus Stat 03/07/18 18:00 Ordered Medication Orders Albuterol/Ipratropium (Duoneb 3.0-0.5 Mg/3 Ml) 3 ml NEB Q4HRRT PRN PRN Reason: Shortness Of Breath/wheezing Lactated Ringer's (Ringers, Lactated) 1,000 mls @ 250 mls/hr IV ASDIRECTED MICHELLE Sodium Chloride (Normal Saline) 500 mls @ 999 mls/hr IV .BOLUS MICHELLE Piperacillin Sod/Tazobactam (Sod 4.5 gm/ Sodium Chloride) 100 mls @ 100 mls/hr IV Q6H MICHELLE Vancomycin HCl 1 gm/ Sodium (Chloride) 250 mls @ 166 mls/hr IV Q8H MICHELLE Metoclopramide HCl (Reglan) 10 mg IVPUSH Q6H MICHELLE Last Admin: 03/07/18 18:27 Dose: 10 mg Ondansetron HCl (Zofran) 4 mg IVPUSH Q6H PRN PRN Reason: Nausea/Vomiting Sodium Chloride (Saline Flush) 10 ml FLUSH ASDIRECTED PRN PRN Reason: Keep Vein Open Sodium Chloride (Saline Flush) 2.5 ml FLUSH ASDIRECTED PRN PRN Reason: Keep Vein Open Vancomycin HCl (Pharmacy To Dose - Vancomycin) 0 dose .XX ASDIRECTED MICHELLE
[2018-03-08] MEDS: Metoclopramide 10 MG/2 ML SDV IVPUSH SCH ×4 (00:08→18:45)
--- NOTE | 2018-03-08 00:50 | HP ---
DATE OF : 1990 PRIMARY CARE PHYSICIAN: Unknown PCP HISTORY OF PRESENT ILLNESS: The patient is a 27-year-old man, who presented to the hospital because of vomiting and abdominal pain that started today, associated with chills. The patient has no diarrhea. The patient is smoking marijuana. He was admitted in the hospital a few weeks ago with the same symptoms and is supposed to have HIDA and is being scheduled for endoscopy and EGD as outpatient scan tomorrow.Patient is very sick and can not provide history. PAST MEDICAL HISTORY: He has a history of chronic alcohol use, depression, gastritis, history of dehydration, elevated creatine kinase, and acute kidney injury. PAST SURGICAL HISTORY: He has a history of clubfoot. ALLERGIES: None. SOCIAL HISTORY: Smoking, currently every day smoker. Alcohol use, yes. As per nursing assessment, the patient drinks every day. He did not provide a history to me, just minimal because he was not feeling well.Smokes marijuana 2-3 joints a day for the past 6- 7 months. FAMILY HISTORY: His mom had gallbladder removal and father is healthy. PHYSICAL EXAMINATION: VITAL SIGNS: At admission, his temperature was 98 Fahrenheit, pulse 50, blood pressure 100/50, respiratory rate 19, pulse oximetry 95%. GENERAL: The patient is very pale. He is shivering. He is not providing history. Speaks with his eyes closed. In general appearance, he is sick appearing. HEENT: Head is atraumatic, normocephalic. Dry oral mucosa. NECK: Supple. No thyromegaly. No lymphadenopathy. HEART: S1, S2. Regular rhythm and rate. No murmurs. LUNGS: Clear to auscultation bilaterally. ABDOMEN: Soft, nontender. Positive bowel sounds. EXTREMITIES: No edema. NEUROLOGIC: The patient does not have any gross neurological deficits. LABORATORY DATA: At admission; WBC 8.51, hemoglobin 15.9, hematocrit 46.7, and platelet count is 283. Lactate at admission was 3.5. Sodium 140, potassium 3.4, chloride 105, carbon dioxide 21.7, BUN 13, creatinine 1.1. GFR more than 60. Glucose 102, calcium 10, total bilirubin 0.4, AST 21, ALT 23, alkaline phosphatase 51. Troponin less than 0.05. Total protein 8.2, albumin 5.2, globulin 3, and lipase 221. Urinalysis; urine color dark yellow, urine appearance cloudy, pH 6, urine specific gravity more than 1.03, glucose negative, ketones trace, occult blood negative, nitrite negative, bilirubin small, and leukocyte esterase is negative, and amorphous sediment moderate, calcium oxalate crystals few, urine bacteria 3+, mucus moderate. Urine toxicology is positive for marijuana. Alcohol is 3. ASSESSMENT AND PLAN: 1. Intractable vomiting and nausea. 2. Marijuana use. 3. History of alcohol abuse. 4. Depression. We will admit the patient to medical telemetry. We will put the patient on CIWA protocol. We will give the patient IV fluids at 200 mL/hour, and we will continue the patient with antibiotics, Zosyn 4.5 g q.6 hours and vancomycin IV as per pharmacy to dose. We will monitor lactic acid and the lactic acid is below 2. For the nausea and vomiting, we will also give the patient Zofran 8 mg IV push one time and then we will continue with ondansetron 4 mg IV push q.6 hours p.r.n. and reglan 10 mg iv qid sqh For depression, we will continue the patient with fluoxetine 20 mg p.o. daily. For intractable nausea and vomiting, we will do HIDA scan tomorrow to evaluate for biliary dyskinesia. ANTOPET / MODL /[id number] MTDD
[2018-03-08] MEDS: Sodium Chloride 0.9% 500 ML IV SCH ×2 (02:35→03:16)
[2018-03-08] MEDS: Lactated Ringers 1,000 ML IV SCH ×4 (04:14→20:43)
[2018-03-08 05:37] LABS: CHLORIDE,CL 110 mmol/L (98-107); SODIUM,NA 143 mmol/L (136-148)
[2018-03-08] MEDS: Piperacillin/Tazobactam 4.5 GM in Sodium Chloride 0.9% 100 ML IV SCH ×2 (05:48→11:21)
[2018-03-08] MEDS: FLUoxetine 20 MG Cap PO SCH (08:45)
[2018-03-08] MEDS: Pantoprazole 40 MG Vial IVPUSH SCH ×2 (08:46→21:00)
[2018-03-08] MEDS ORDERED: Promethazine 25 MG/ML SDV IM PRN (09:45)
--- NOTE | 2018-03-08 14:05 | CR ---
EXAM DATE: 03/07/18 PATIENT'S AGE: 27 Patient: FRANK VARGAS Facility: [place], [place] Site . Site : 1990 Study: XRay Chest [id number] 3:24:22 PM Ordering Physician: Mana Limon Final Report: INDICATION: vomiting/ PT can barely stay still from shaking so much INDICATION: Vomiting. TECHNIQUE: Chest 1 view. COMPARISON: None FINDINGS: Cardiovascular and mediastinum: Heart size and vasculature are normal in caliber and appearance. Mediastinum is within normal limits. Lungs and pleural space: Lungs are clear. No sign of infiltrate or mass. No sign of pleural effusion. No pneumothorax. Bones and soft tissues: No significant findings. IMPRESSION: Lungs are clear. Dictated by Kavin Fermin MD @ 03/07/2018 3:34:31 PM Dictated by: Kavin Fermin MD @ 03/07/2018 15:34:38 (Electronic Signature) Report Signed by Proxy. [facility]
--- NOTE | 2018-03-08 14:06 | CR ---
EXAM DATE: 03/07/18 PATIENT'S AGE: 27 Patient: FRANK VARGAS Facility: [place], [place] Site . Site : 1990 Study: XRay Abdomen [id number] 3:24:56 PM Ordering Physician: Mana Limon Final Report: INDICATION: vomiting/ PT can barely stay still from shaking so much INDICATION: Vomiting. TECHNIQUE: Abdomen tail view. COMPARISON: None FINDINGS: Bowel: Bowel pattern is normal. Soft tissues: No sign of free air. No sign of soft tissue mass. No suspicious calcifications. Bones: Unremarkable for age. IMPRESSION: Nonobstructive bowel gas pattern. Dictated by Kavin Fermin MD @ 03/07/2018 3:35:38 PM Dictated by: Kavin Fermin MD @ 03/07/2018 15:35:44 (Electronic Signature) Report Signed by Proxy. [facility]
--- NOTE | 2018-03-08 14:41 | NM ---
EXAMINATION: Nuclear medicine hepatobiliary study (HIDA) with cholecystokinin (calculation of gallbla dder ejection fraction for function). HISTORY: Nausea and vomiting. PROCEDURE: Following intravenous administration of 4.3 mCi of technetium 99m Choletec, dynamic images were obt ained up to one-hour post injection. This is followed by slow intravenous administration of 1.3 mcg of CCK and additional dynamic images w ere obtained. Gallbladder ejection fraction is calculated. FINDINGS: The initial dynamic images demonstrates clearance of the tracer from the blood pool with the prompt t racer uptake by the liver. By 15 minutes tracer activity is noted in the gallbladder. The post CCK im ages demonstrates optimal contraction of the gallbladder with ejection fraction of 69 percent (normal is equal or more than 35%). Tracer activity is noted in the small intestine following CCK administra tion. IMPRESSION: 1. Patent cystic and common bile ducts. Normal liver function. 2. Normal gallbladder ejection fraction following CCK administration ( 69 %; normal equal or more th an 35%).
--- NOTE | 2018-03-08 16:59 | PCM.PN ---
- General Info Date of Service: 03/08/18 Subjective Update: Patient had retching in the morning which improved in the afternoon . He had Us of abdomen done few weeks ago which was normal. His symptoms improved later on today and he was started on clear liquid diet. - Review of Systems HEENT: Reports: No Symptoms Pulmonary: Reports: No Symptoms Cardiovascular: Reports: No Symptoms Gastrointestinal: Reports: Nausea, Other (retching) Musculoskeletal: Reports: No Symptoms Skin: Reports: No Symptoms Neurological: Reports: No Symptoms Psychiatric: Reports: No Symptoms - Patient Data Vitals - Most Recent: Last Vital Signs Temp 98.4 F 03/08/18 15:48 Pulse 49 L 03/08/18 15:48 Resp 16 03/08/18 15:48 BP 106/64 03/08/18 15:48 Pulse Ox 99 03/08/18 15:48 Weight - Most Recent: 148 lb 11.2 oz I&O - Last 24 Hours: Intake & Output 03/08/18 03/08/18 03/08/18 06:59 14:59 22:59 Intake Total 1720 100 Output Total 225 Balance 1495 100 Lab Results Last 24 Hours: Laboratory Results - last 24 hr 03/07/18 03/07/18 03/07/18 Range/Units 16:11 16:11 20:31 WBC (4.0-11.0) K/uL RBC (4.50-5.90) M/uL Hgb (13.0-17.0) g/dL Hct (38.0-50.0) % MCV (80.0-98.0) fL MCH (27.0-32.0) pg MCHC (31.0-37.0) g/dL RDW Std Deviation (28.0-62.0) fl RDW Coeff of Kathryn (11.0-15.0) % Plt Count (150-400) K/uL MPV (7.40-12.00) fL Neut % (Auto) (48.0-80.0) % Lymph % (Auto) (16.0-40.0) % [place] % (Auto) (0.0-15.0) % Eos % (Auto) (0.0-7.0) % Baso % (Auto) (0.0-1.5) % Neut # (Auto) (1.4-5.7) K/uL Lymph # (Auto) (0.6-2.4) K/uL [place] # (Auto) (0.0-0.8) K/uL Eos # (Auto) (0.0-0.7) K/uL Baso # (Auto) (0.0-0.1) K/uL Nucleated RBC % /100WBC Nucleated RBCs # K/uL Lactate 2.9 H (0.20-2.00) mmol/L Sodium (136-148) mmol/L Potassium (3.5-5.1) mmol/L Chloride (98-107) mmol/L Carbon Dioxide (21.0-32.0) mmol/L BUN (7.0-18.0) mg/dL Creatinine (0.8-1.3) mg/dL Est Cr Clr Drug Dosing mL/min Estimated GFR (MDRD) ml/min Glucose (74-106) mg/dL Calcium (8.5-10.1) mg/dL Magnesium (1.8-2.4) mg/dL Total Bilirubin (0.2-1.0) mg/dL AST (15-37) IU/L ALT (14-63) IU/L Alkaline Phosphatase (46-116) U/L Creatine Kinase (26-308) U/L Total Protein (6.4-8.2) g/dL Albumin (3.4-5.0) g/dL Globulin (2.0-3.5) g/dL Albumin/Globulin Ratio (1.3-2.8) Urine Color DARK YELLOW Urine Appearance CLOUDY Urine pH 6.0 (5.0-8.0) Ur Specific Orgas >= 1.030 (1.001-1.035) Urine Protein TRACE (NEGATIVE) mg/dL Urine Glucose (UA) NEGATIVE (NEGATIVE) mg/dL Urine Ketones TRACE H (NEGATIVE) mg/dL Urine Occult Blood NEGATIVE (NEGATIVE) Urine Nitrite NEGATIVE (NEGATIVE) Urine Bilirubin SMALL H (NEGATIVE) Urine Ictotest NEGATIVE Urine Urobilinogen 0.2 (<2.0) EU/dL Ur Leukocyte Esterase NEGATIVE (NEGATIVE) Urine RBC 0-2 (0-2/HPF) Urine WBC 0-2 (0-5/HPF) Ur Epithelial Cells FEW (NONE-FEW) Calcium Oxalate Crystal FEW (NEGATIVE) Amorphous Sediment MODERATE (NEGATIVE) Urine Bacteria 3+ H (NEGATIVE) Urine Mucus MODERATE (NONE-MOD) Urine Opiates Screen NEGATIVE (NEGATIVE) Ur Oxycodone Screen NEGATIVE (NEGATIVE) Urine Methadone Screen NEGATIVE (NEGATIVE) Ur Barbiturates Screen NEGATIVE (NEGATIVE) Ur Phencyclidine Scrn NEGATIVE (NEGATIVE) Ur Amphetamine Screen NEGATIVE (NEGATIVE) U Methamphetamines Scrn NEGATIVE (NEGATIVE) U Benzodiazepines Scrn NEGATIVE (NEGATIVE) U Cocaine Metab Screen NEGATIVE (NEGATIVE) U Marijuana (THC) Screen POSITIVE (NEGATIVE) 03/07/18 03/08/18 03/08/18 Range/Units 20:31 04:40 04:40 WBC 10.25 (4.0-11.0) K/uL RBC 4.65 (4.50-5.90) M/uL Hgb 13.8 (13.0-17.0) g/dL Hct 39.2 (38.0-50.0) % MCV 84.3 (80.0-98.0) fL MCH 29.7 (27.0-32.0) pg MCHC 35.2 (31.0-37.0) g/dL RDW Std Deviation 38.3 (28.0-62.0) fl RDW Coeff of Kathryn 13 (11.0-15.0) % Plt Count 212 (150-400) K/uL MPV 9.60 (7.40-12.00) fL Neut % (Auto) 84.7 H (48.0-80.0) % Lymph % (Auto) 10.9 L (16.0-40.0) % [place] % (Auto) 4.2 (0.0-15.0) % Eos % (Auto) 0.0 (0.0-7.0) % Baso % (Auto) 0.2 (0.0-1.5) % Neut # (Auto) 8.7 H (1.4-5.7) K/uL Lymph # (Auto) 1.1 (0.6-2.4) K/uL [place] # (Auto) 0.4 (0.0-0.8) K/uL Eos # (Auto) 0.0 (0.0-0.7) K/uL Baso # (Auto) 0.0 (0.0-0.1) K/uL Nucleated RBC % 0.0 /100WBC Nucleated RBCs # 0 K/uL Lactate (0.20-2.00) mmol/L Sodium 143 (136-148) mmol/L Potassium 3.7 (3.5-5.1) mmol/L Chloride 110 H (98-107) mmol/L Carbon Dioxide 20.9 L (21.0-32.0) mmol/L BUN 7 (7.0-18.0) mg/dL Creatinine 0.8 (0.8-1.3) mg/dL Est Cr Clr Drug Dosing 119.58 mL/min Estimated GFR (MDRD) > 60.0 ml/min Glucose 105 (74-106) mg/dL Calcium 8.0 L (8.5-10.1) mg/dL Magnesium 1.7 L (1.8-2.4) mg/dL Total Bilirubin 0.5 (0.2-1.0) mg/dL AST 27 (15-37) IU/L ALT 20 (14-63) IU/L Alkaline Phosphatase 36 L (46-116) U/L Creatine Kinase 1033 H (26-308) U/L Total Protein 5.9 L (6.4-8.2) g/dL Albumin 3.6 (3.4-5.0) g/dL Globulin 2.3 (2.0-3.5) g/dL Albumin/Globulin Ratio 1.6 (1.3-2.8) Urine Color Urine Appearance Urine pH (5.0-8.0) Ur Specific Orgas (1.001-1.035) Urine Protein (NEGATIVE) mg/dL Urine Glucose (UA) (NEGATIVE) mg/dL Urine Ketones (NEGATIVE) mg/dL Urine Occult Blood (NEGATIVE) Urine Nitrite (NEGATIVE) Urine Bilirubin (NEGATIVE) Urine Ictotest Urine Urobilinogen (<2.0) EU/dL Ur Leukocyte Esterase (NEGATIVE) Urine RBC (0-2/HPF) Urine WBC (0-5/HPF) Ur Epithelial Cells (NONE-FEW) Calcium Oxalate Crystal (NEGATIVE) Amorphous Sediment (NEGATIVE) Urine Bacteria (NEGATIVE) Urine Mucus (NONE-MOD) Urine Opiates Screen (NEGATIVE) Ur Oxycodone Screen (NEGATIVE) Urine Methadone Screen (NEGATIVE) Ur Barbiturates Screen (NEGATIVE) Ur Phencyclidine Scrn (NEGATIVE) Ur Amphetamine Screen (NEGATIVE) U Methamphetamines Scrn (NEGATIVE) U Benzodiazepines Scrn (NEGATIVE) U Cocaine Metab Screen (NEGATIVE) U Marijuana (THC) Screen (NEGATIVE) 03/08/18 Range/Units 04:40 WBC (4.0-11.0) K/uL RBC (4.50-5.90) M/uL Hgb (13.0-17.0) g/dL Hct (38.0-50.0) % MCV (80.0-98.0) fL MCH (27.0-32.0) pg MCHC (31.0-37.0) g/dL RDW Std Deviation (28.0-62.0) fl RDW Coeff of Kathryn (11.0-15.0) % Plt Count (150-400) K/uL MPV (7.40-12.00) fL Neut % (Auto) (48.0-80.0) % Lymph % (Auto) (16.0-40.0) % [place] % (Auto) (0.0-15.0) % Eos % (Auto) (0.0-7.0) % Baso % (Auto) (0.0-1.5) % Neut # (Auto) (1.4-5.7) K/uL Lymph # (Auto) (0.6-2.4) K/uL [place] # (Auto) (0.0-0.8) K/uL Eos # (Auto) (0.0-0.7) K/uL Baso # (Auto) (0.0-0.1) K/uL Nucleated RBC % /100WBC Nucleated RBCs # K/uL Lactate 0.6 (0.20-2.00) mmol/L Sodium (136-148) mmol/L Potassium (3.5-5.1) mmol/L Chloride (98-107) mmol/L Carbon Dioxide (21.0-32.0) mmol/L BUN (7.0-18.0) mg/dL Creatinine (0.8-1.3) mg/dL Est Cr Clr Drug Dosing mL/min Estimated GFR (MDRD) ml/min Glucose (74-106) mg/dL Calcium (8.5-10.1) mg/dL Magnesium (1.8-2.4) mg/dL Total Bilirubin (0.2-1.0) mg/dL AST (15-37) IU/L ALT (14-63) IU/L Alkaline Phosphatase (46-116) U/L Creatine Kinase (26-308) U/L Total Protein (6.4-8.2) g/dL Albumin (3.4-5.0) g/dL Globulin (2.0-3.5) g/dL Albumin/Globulin Ratio (1.3-2.8) Urine Color Urine Appearance Urine pH (5.0-8.0) Ur Specific Orgas (1.001-1.035) Urine Protein (NEGATIVE) mg/dL Urine Glucose (UA) (NEGATIVE) mg/dL Urine Ketones (NEGATIVE) mg/dL Urine Occult Blood (NEGATIVE) Urine Nitrite (NEGATIVE) Urine Bilirubin (NEGATIVE) Urine Ictotest Urine Urobilinogen (<2.0) EU/dL Ur Leukocyte Esterase (NEGATIVE) Urine RBC (0-2/HPF) Urine WBC (0-5/HPF) Ur Epithelial Cells (NONE-FEW) Calcium Oxalate Crystal (NEGATIVE) Amorphous Sediment (NEGATIVE) Urine Bacteria (NEGATIVE) Urine Mucus (NONE-MOD) Urine Opiates Screen (NEGATIVE) Ur Oxycodone Screen (NEGATIVE) Urine Methadone Screen (NEGATIVE) Ur Barbiturates Screen (NEGATIVE) Ur Phencyclidine Scrn (NEGATIVE) Ur Amphetamine Screen (NEGATIVE) U Methamphetamines Scrn (NEGATIVE) U Benzodiazepines Scrn (NEGATIVE) U Cocaine Metab Screen (NEGATIVE) U Marijuana (THC) Screen (NEGATIVE) [place] Results Last 24 Hours: Microbiology 03/07/18 16:28 Aerobic Blood Culture - Preliminary Blood - Venous - Lab Draw NO GROWTH AFTER 1 DAY Anaerobic Blood Culture - Preliminary NO GROWTH AFTER 1 DAY 03/07/18 15:58 Aerobic Blood Culture - Preliminary Blood - Venous NO GROWTH AFTER 1 DAY Anaerobic Blood Culture - Preliminary NO GROWTH AFTER 1 DAY Med Orders - Current: Current Medications Albuterol/Ipratropium (Duoneb 3.0-0.5 Mg/3 Ml) 3 ml NEB Q4HRRT PRN PRN Reason: Shortness Of Breath/wheezing Fluoxetine HCl (Prozac) 20 mg PO DAILY [facility] Last Admin: 03/08/18 08:45 Dose: 20 mg Lactated Ringer's (Ringers, Lactated) 1,000 mls @ 250 mls/hr IV ASDIRECTED [facility] Last Admin: 03/08/18 16:38 Dose: 250 mls/hr Lorazepam (Ativan) 0 mg IVPUSH Q4H PRN; Protocol PRN Reason: Agitation Last Admin: 03/08/18 02:51 Dose: 1 mg Metoclopramide HCl (Reglan) 10 mg IVPUSH Q6H [facility] Last Admin: 03/08/18 11:30 Dose: 10 mg Ondansetron HCl (Zofran) 4 mg IVPUSH Q6H PRN PRN Reason: Nausea/Vomiting Last Admin: 03/08/18 02:18 Dose: 4 mg Pantoprazole Sodium (Protonix Iv) 40 mg IVPUSH BID [facility] Last Admin: 03/08/18 08:46 Dose: 40 mg Promethazine HCl (Phenergan) 12.5 mg IM Q6H PRN PRN Reason: nausea and vomiting Sodium Chloride (Saline Flush) 10 ml FLUSH ASDIRECTED PRN PRN Reason: Keep Vein Open Sodium Chloride (Saline Flush) 2.5 ml FLUSH ASDIRECTED PRN PRN Reason: Keep Vein Open Discontinued Medications Multivitamins/Minerals 10 ml/Thiamine HCl 100 mg/ Folic Acid 1 mg/ Sodium Chloride 1,011.2 mls @ 999 mls/hr IV ONETIME ONE Stop: 03/07/18 14:50 Last Admin: 03/07/18 14:08 Dose: 999 mls/hr Sodium Chloride (Normal Saline) 1,000 mls @ 999 mls/hr IV STAT ONE Stop: 03/07/18 15:57 Last Admin: 03/07/18 15:20 Dose: 999 mls/hr Piperacillin Sod/Tazobactam (Sod 3.375 gm/ Sodium Chloride) 50 mls @ 100 mls/ hr IV ONETIME ONE Stop: 03/07/18 16:01 Last Admin: 03/07/18 16:33 Dose: 100 mls/hr Vancomycin HCl 1 gm/ Sodium (Chloride) 250 mls @ 250 mls/hr IV ONETIME ONE Stop: 03/07/18 16:31 Last Admin: 03/07/18 16:34 Dose: 250 mls/hr Sodium Chloride (Normal Saline) 1,000 mls @ 250 mls/hr IV .Bolus ONE Stop: 03/07/18 20:33 Last Admin: 03/07/18 16:35 Dose: 250 mls/hr Potassium Chloride 40 meq/ (Sodium Chloride) 520 mls @ 250 mls/hr IV .Bolus ONE Stop: 03/07/18 18:38 Last Admin: 03/07/18 19:56 Dose: 125 mls/hr Piperacillin Sod/Tazobactam (Sod 4.5 gm/ Sodium Chloride) 100 mls @ 100 mls/hr IV ONETIME ONE Stop: 03/07/18 22:59 Last Admin: 03/07/18 23:15 Dose: 100 mls/hr Sodium Chloride (Normal Saline) 500 mls @ 999 mls/hr IV .BOLUS [facility]HELLE Last Admin: 03/08/18 03:16 Dose: 999 mls/hr Piperacillin Sod/Tazobactam (Sod 4.5 gm/ Sodium Chloride) 100 mls @ 100 mls/hr IV Q6H [facility] Last Admin: 03/08/18 11:21 Dose: 100 mls/hr Vancomycin HCl 1 gm/ Sodium (Chloride) 250 mls @ 166 mls/hr IV Q8H [facility] Last Admin: 03/08/18 06:57 Dose: 166 mls/hr Lorazepam (Ativan) 1 mg IVPUSH ONETIME ONE Stop: 03/07/18 14:56 Last Admin: 03/07/18 15:18 Dose: 1 mg Ondansetron HCl (Zofran) 8 mg IVPUSH ONETIME ONE Stop: 03/07/18 13:51 Last Admin: 03/07/18 14:01 Dose: 8 mg Ondansetron HCl (Zofran) 8 mg IVPUSH ONETIME ONE Stop: 03/07/18 18:05 Last Admin: 03/07/18 18:27 Dose: 8 mg Pantoprazole Sodium (Protonix Iv) 80 mg IVPUSH .BOLUS ONE Stop: 03/07/18 13:51 Last Admin: 03/07/18 14:01 Dose: 80 mg Potassium Chloride (Klor-Con M20) 40 meq PO ONETIME ONE Stop: 03/07/18 18:11 Last Admin: 03/07/18 18:23 Dose: Not Given Potassium Chloride (Klor-Con M20) 40 meq PO ONETIME ONE Stop: 03/07/18 22:07 Last Admin: 03/08/18 02:21 Dose: Not Given Promethazine HCl (Phenergan) 25 mg IM ONETIME ONE Stop: 03/07/18 13:56 Last Admin: 03/07/18 14:00 Dose: 25 mg Vancomycin HCl (Pharmacy To Dose - Vancomycin) 0 dose .XX ASDIRECTED MICHELLE - Exam Quality Assessment: Supplemental Oxygen General: Alert, Oriented, Cooperative HEENT: Pupils Equal, Pupils Reactive, EOMI Neck: Supple, Trachea Midline, No JVD, No Thyromegaly Lungs: Clear to Auscultation, Normal Respiratory Effort Cardiovascular: Regular Rate, Regular Rhythm, No Murmurs GI/Abdominal Exam: Normal Bowel Sounds, Soft, Non-Tender, No Organomegaly, No Distention, No Abnormal Bruit, No Mass Extremities: Normal Inspection - Problem List & Annotations (1) Marijuana abuse SNOMED Code(s): 43668907 Code(s): F12.10 - CANNABIS ABUSE, UNCOMPLICATED Status: Acute Current Visit: Yes (2) Intractable vomiting SNOMED Code(s): 627386385 Code(s): R11.10 - VOMITING, UNSPECIFIED Status: Acute Current Visit: Yes (3) Social anxiety disorder SNOMED Code(s): 07381316 Code(s): F40.10 - SOCIAL PHOBIA, UNSPECIFIED Status: Acute Current Visit : Yes - Problem List Review Problem List Initiated/Reviewed/Updated: Yes - My Orders Last 24 Hours: My Active Orders 03/07/18 16:59 Telemetry Monitoring [Cardiac Monitoring] [RC] Q8H 03/07/18 18:00 Oxygen Therapy [RC] PRN Pulse Oximetry [RC] PRN Up ad Patricia [RC] ASDIRECTED VTE/DVT Education [RC] PER UNIT ROUTINE Vital Signs [RC] Q4H Albuterol/Ipratropium [DuoNeb 3.0-0.5 MG/3 ML] 3 ml NEB Q4HRRT PRN Sodium Chloride 0.9% [Saline Flush] 10 ml FLUSH ASDIRECTED PRN Sodium Chloride 0.9% [Saline Flush] 2.5 ml FLUSH ASDIRECTED PRN Peripheral IV Insertion Adult [OM.PC] Routine Resuscitation Status Routine 03/07/18 18:01 Sequential Compression Device [OM.PC] Per Unit Routine 03/07/18 18:02 RT Aerosol Therapy [RC] ASDIRECTED 03/07/18 18:15 Lactated Ringers [Ringers, Lactated] 1,000 ml IV ASDIRECTED 03/07/18 18:30 Metoclopramide [Reglan] 10 mg IVPUSH Q6H 03/07/18 22:05 Ondansetron [Zofran] 4 mg IVPUSH Q6H PRN 03/07/18 23:38 CIWAA Assessment [RC] Q4H 03/07/18 23:39 LORazepam [Ativan] See Protocol IVPUSH Q4H PRN 03/07/18 Dinner Nothing per Oral Now Diet [DIET] 03/08/18 09:00 FLUoxetine [PROzac] 20 mg PO DAILY Pantoprazole [ProTONIX IV] 40 mg IVPUSH BID 03/08/18 09:45 Promethazine [Phenergan] 12.5 mg IM Q6H PRN 03/08/18 15:11 Gastric Empty Study [NM] Routine 03/08/18 Dinner Clear Liquid Diet [DIET] 03/09/18 05:11 CBC WITH AUTO DIFF [HEME] AM COMPREHENSIVE METABOLIC PN,CMP [CHEM] AM MAGNESIUM [CHEM] AM 03/10/18 05:11 CBC WITH AUTO DIFF [HEME] AM COMPREHENSIVE METABOLIC PN,CMP [CHEM] AM MAGNESIUM [CHEM] AM 03/11/18 05:11 CBC WITH AUTO DIFF [HEME] AM COMPREHENSIVE METABOLIC PN,CMP [CHEM] AM MAGNESIUM [CHEM] AM 03/12/18 05:11 COMPREHENSIVE METABOLIC PN,CMP [CHEM] AM - Plan Plan:: Plan will start patient on clear liquid diet. His Hida scan was normal. will order a gastric empty study. Patient smokes 2-3 joints of marijuana a day. His symptoms are most likely due to marijuana or possible psychogenic. Will do a gastric empty study tomorrow to rule out gastroparesis a. Patient states he had vomiting who is coming now more often even when he did not smoke marijuana. Will also call Psychiatry consult if the gastric empty is normal as the psychogenic vomiting can be in depression or conversion disorder.
[2018-03-09] MEDS: Lactated Ringers 1,000 ML IV SCH ×3 (00:51→08:55)
[2018-03-09 06:17] LABS: CHLORIDE,CL 111 mmol/L (98-107); SODIUM,NA 145 mmol/L (136-148)
[2018-03-09] MEDS: Metoclopramide 10 MG/2 ML SDV IVPUSH SCH ×2 (06:52)
[2018-03-09] MEDS: Pantoprazole 40 MG Vial IVPUSH SCH (08:42)
[2018-03-09 08:45] VITALS: BP 96/56
[2018-03-09] MEDS ORDERED: Potassium Chloride 20 MEQ Tab.ER PO ONE (09:37)
[2018-03-09] MEDS: FLUoxetine 20 MG Cap PO SCH (10:03)
--- NOTE | 2018-03-09 20:45 | PCM.DCSUM1 ---
Discharge Summary - Hospital Course Diagnosis: Stroke: No - Discharge Data Discharge Disposition: Home, Self-Care 01 Condition: Stable - Discharge Diagnosis/Problem(s) (1) Marijuana abuse SNOMED Code(s): 02518246 ICD Code: F12.10 - CANNABIS ABUSE, UNCOMPLICATED Status: Acute (2) Intractable vomiting SNOMED Code(s): 461183144 ICD Code: R11.10 - VOMITING, UNSPECIFIED Status: Acute (3) Social anxiety disorder SNOMED Code(s): 11213625 ICD Code: F40.10 - SOCIAL PHOBIA, UNSPECIFIED Status: Acute (4) Cannabinoid hyperemesis syndrome SNOMED Code(s): 065627239, 787621045 ICD Code: F12.988 - CANNABIS USE, UNSP WITH OTHER CANNABIS-INDUCED DISORDER Status: Acute (5) Sinus arrhythmia seen on electrocardiogram SNOMED Code(s): 795236149 ICD Code: I49.8 - OTHER SPECIFIED CARDIAC ARRHYTHMIAS Status: Acute (6) Bradycardia by electrocardiogram SNOMED Code(s): 344318788 ICD Code: R00.1 - BRADYCARDIA, UNSPECIFIED Status: Acute - Patient Instructions Diet: Regular Diet as Tolerated Activity: As Tolerated Driving: May Drive Today Showering/Bathing: May Shower - Discharge Plan Prescriptions/Med Rec: FLUoxetine HCl [Prozac] 20 mg PO DAILY 90 Days #90 capsule Home Medications: Home Meds FLUoxetine HCl [Prozac] 20 mg PO DAILY 90 Days #90 capsule 03/09/18 [Rx] Patient Handouts: Nausea and Vomiting, Adult, Fluoxetine capsules or tablets ( Depression/Mood Disorders) Referrals: Kavin Be MD [Physician] - 03/22/18 3:30 pm - Patient Data Vitals - Most Recent: Last Vital Signs Temp 97.9 F 03/09/18 08:00 Pulse 49 L 03/09/18 08:00 Resp 18 03/09/18 08:00 BP 96/56 L 03/09/18 08:00 Pulse Ox 97 03/09/18 08:00 Weight - Most Recent: 148 lb 11.2 oz I&O - Last 24 hours: Intake & Output 03/09/18 03/09/18 03/09/18 06:59 14:59 22:59 Intake Total 7210 1029 Output Total 2585 1030 Balance 5125 -1 Lab Results - Last 24 hrs: Laboratory Results - last 24 hr 03/09/18 03/09/18 Range/Units 05:31 05:31 WBC 5.76 (4.0-11.0) K/uL RBC 4.24 L (4.50-5.90) M/uL Hgb 12.5 L (13.0-17.0) g/dL Hct 36.0 L (38.0-50.0) % MCV 84.9 (80.0-98.0) fL MCH 29.5 (27.0-32.0) pg MCHC 34.7 (31.0-37.0) g/dL RDW Std Deviation 38.8 (28.0-62.0) fl RDW Coeff of Kathryn 13 (11.0-15.0) % Plt Count 181 (150-400) K/uL MPV 9.40 (7.40-12.00) fL Neut % (Auto) 35.3 L (48.0-80.0) % Lymph % (Auto) 49.3 H (16.0-40.0) % [place] % (Auto) 10.9 (0.0-15.0) % Eos % (Auto) 3.5 (0.0-7.0) % Baso % (Auto) 1.0 (0.0-1.5) % Neut # (Auto) 2.0 (1.4-5.7) K/uL Lymph # (Auto) 2.8 H (0.6-2.4) K/uL [place] # (Auto) 0.6 (0.0-0.8) K/uL Eos # (Auto) 0.2 (0.0-0.7) K/uL Baso # (Auto) 0.1 (0.0-0.1) K/uL Nucleated RBC % 0.0 /100WBC Nucleated RBCs # 0 K/uL Sodium 145 (136-148) mmol/L Potassium 3.4 L (3.5-5.1) mmol/L Chloride 111 H (98-107) mmol/L Carbon Dioxide 27.6 (21.0-32.0) mmol/L BUN 6 L (7.0-18.0) mg/dL Creatinine 0.7 L (0.8-1.3) mg/dL Est Cr Clr Drug Dosing 136.67 mL/min Estimated GFR (MDRD) > 60.0 ml/min Glucose 80 (74-106) mg/dL Calcium 8.0 L (8.5-10.1) mg/dL Magnesium 1.7 L (1.8-2.4) mg/dL Total Bilirubin 0.5 (0.2-1.0) mg/dL AST 24 (15-37) IU/L ALT 21 (14-63) IU/L Alkaline Phosphatase 27 L (46-116) U/L Total Protein 5.0 L (6.4-8.2) g/dL Albumin 3.1 L (3.4-5.0) g/dL Globulin 1.9 L (2.0-3.5) g/dL Albumin/Globulin Ratio 1.6 (1.3-2.8) DEANDRE Results - Last 24 hrs: Microbiology 03/07/18 16:28 Aerobic Blood Culture - Preliminary Blood - Venous - Lab Draw NO GROWTH AFTER 2 DAYS Anaerobic Blood Culture - Preliminary NO GROWTH AFTER 2 DAYS 03/07/18 15:58 Aerobic Blood Culture - Preliminary Blood - Venous NO GROWTH AFTER 2 DAYS Anaerobic Blood Culture - Preliminary NO GROWTH AFTER 2 DAYS 03/07/18 16:10 Urine Culture - Final Urine, Clean Catch MIXED FLORECITA <1000 CFU/ML Med Orders - Current: Current Medications Discontinued Medications Albuterol/Ipratropium (Duoneb 3.0-0.5 Mg/3 Ml) 3 ml NEB Q4HRRT PRN PRN Reason: Shortness Of Breath/wheezing Fluoxetine HCl (Prozac) 20 mg PO DAILY [facility] Last Admin: 03/09/18 10:03 Dose: 20 mg Multivitamins/Minerals 10 ml/Thiamine HCl 100 mg/ Folic Acid 1 mg/ Sodium Chloride 1,011.2 mls @ 999 mls/hr IV ONETIME ONE Stop: 03/07/18 14:50 Last Admin: 03/07/18 14:08 Dose: 999 mls/hr Sodium Chloride (Normal Saline) 1,000 mls @ 999 mls/hr IV STAT ONE Stop: 03/07/18 15:57 Last Admin: 03/07/18 15:20 Dose: 999 mls/hr Piperacillin Sod/Tazobactam (Sod 3.375 gm/ Sodium Chloride) 50 mls @ 100 mls/ hr IV ONETIME ONE Stop: 03/07/18 16:01 Last Admin: 03/07/18 16:33 Dose: 100 mls/hr Vancomycin HCl 1 gm/ Sodium (Chloride) 250 mls @ 250 mls/hr IV ONETIME ONE Stop: 03/07/18 16:31 Last Admin: 03/07/18 16:34 Dose: 250 mls/hr Sodium Chloride (Normal Saline) 1,000 mls @ 250 mls/hr IV .Bolus ONE Stop: 03/07/18 20:33 Last Admin: 03/07/18 16:35 Dose: 250 mls/hr Lactated Ringer's (Ringers, Lactated) 1,000 mls @ 250 mls/hr IV ASDIRECTED MICHELLE Last Admin: 03/09/18 08:55 Dose: 250 mls/hr Potassium Chloride 40 meq/ (Sodium Chloride) 520 mls @ 250 mls/hr IV .Bolus ONE Stop: 03/07/18 18:38 Last Admin: 03/07/18 19:56 Dose: 125 mls/hr Piperacillin Sod/Tazobactam (Sod 4.5 gm/ Sodium Chloride) 100 mls @ 100 mls/hr IV ONETIME ONE Stop: 03/07/18 22:59 Last Admin: 03/07/18 23:15 Dose: 100 mls/hr Sodium Chloride (Normal Saline) 500 mls @ 999 mls/hr IV .BOLUS [facility] Last Admin: 03/08/18 03:16 Dose: 999 mls/hr Piperacillin Sod/Tazobactam (Sod 4.5 gm/ Sodium Chloride) 100 mls @ 100 mls/hr IV Q6H [facility] Last Admin: 03/08/18 11:21 Dose: 100 mls/hr Vancomycin HCl 1 gm/ Sodium (Chloride) 250 mls @ 166 mls/hr IV Q8H [facility] Last Admin: 03/08/18 17:14 Dose: Not Given Lorazepam (Ativan) 1 mg IVPUSH ONETIME ONE Stop: 03/07/18 14:56 Last Admin: 03/07/18 15:18 Dose: 1 mg Lorazepam (Ativan) 0 mg IVPUSH Q4H PRN; Protocol PRN Reason: Agitation Last Admin: 03/08/18 02:51 Dose: 1 mg Metoclopramide HCl (Reglan) 10 mg IVPUSH Q6H [facility] Last Admin: 03/09/18 06:52 Dose: 10 mg Ondansetron HCl (Zofran) 8 mg IVPUSH ONETIME ONE Stop: 03/07/18 13:51 Last Admin: 03/07/18 14:01 Dose: 8 mg Ondansetron HCl (Zofran) 8 mg IVPUSH ONETIME ONE Stop: 03/07/18 18:05 Last Admin: 03/07/18 18:27 Dose: 8 mg Ondansetron HCl (Zofran) 4 mg IVPUSH Q6H PRN PRN Reason: Nausea/Vomiting Last Admin: 03/08/18 02:18 Dose: 4 mg Pantoprazole Sodium (Protonix Iv) 80 mg IVPUSH .BOLUS ONE Stop: 03/07/18 13:51 Last Admin: 03/07/18 14:01 Dose: 80 mg Pantoprazole Sodium (Protonix Iv) 40 mg IVPUSH BID [facility] Last Admin: 03/09/18 08:42 Dose: 40 mg Potassium Chloride (Klor-Con M20) 40 meq PO ONETIME ONE Stop: 03/07/18 18:11 Last Admin: 03/07/18 18:23 Dose: Not Given Potassium Chloride (Klor-Con M20) 40 meq PO ONETIME ONE Stop: 03/07/18 22:07 Last Admin: 03/08/18 02:21 Dose: Not Given Potassium Chloride (Klor-Con M20) 40 meq PO ONETIME ONE Stop: 03/09/18 09:38 Last Admin: 03/09/18 10:03 Dose: 40 meq Promethazine HCl (Phenergan) 25 mg IM ONETIME ONE Stop: 03/07/18 13:56 Last Admin: 03/07/18 14:00 Dose: 25 mg Promethazine HCl (Phenergan) 12.5 mg IM Q6H PRN PRN Reason: nausea and vomiting Sodium Chloride (Saline Flush) 10 ml FLUSH ASDIRECTED PRN PRN Reason: Keep Vein Open Sodium Chloride (Saline Flush) 2.5 ml FLUSH ASDIRECTED PRN PRN Reason: Keep Vein Open Vancomycin HCl (Pharmacy To Dose - Vancomycin) 0 dose .XX ASDIRECTED [facility]
== END 2018-03-09 11:30 | disposition home or self-care (01) ==
LOC: MW.ED 13:48 → MW.MS 16:42 → UNDOADMOB 16:42 → MW.ED 16:42 → MW.MS 03-08 13:19
PROVIDERS: ADMIT Internal Medicine; ATTEND Internal Medicine
DX: R11.2 Nausea with vomiting, unspecified (principal); R10.9 Unspecified abdominal pain; N17.9 Acute kidney failure, unspecified; K29.70 Gastritis, unspecified, without bleeding; F32.9 Major depressive disorder, single episode, unspecified; F12.10 Cannabis abuse, uncomplicated; F17.200 Nicotine dependence, unspecified, uncomplicated
CPT/HCPCS: 36415; 71045; 74019; 78227; 80053; 80305; 81001; 82550; 83605; 83690; 83735; 84484; 85025; 87040; 87086; 93005; 96361; 96365; 96366; 96367; 96372; 96375; 96376; 99285; A9270; A9537; C9113; G0378; G0480; J2060; J2405; J2543; J2550; J2765; J2805; J3370; J3411; J3480; J7030; J7040; J7050; J7120

== ENCOUNTER 2018-04-08 18:55 | Emergency (ER) | payer MEDICAID, OTHER ==
[2018-04-08] MEDS ORDERED: Sodium Chloride 0.9% 1,000 ML IV ONE ×2 (19:10→19:19)
[2018-04-08] MEDS ORDERED: Ondansetron 4 MG/2 ML SDV IVPUSH ONE (19:10)
[2018-04-08] MEDS ORDERED: Sodium Chloride 0.9% 10 ML Syringe FLUSH PRN (19:10)
[2018-04-08] MEDS ORDERED: Sodium Chloride 0.9% 2.5 ML Syringe FLUSH PRN (19:10)
[2018-04-08] MEDS ORDERED: diphenhydrAMINE 50 MG/ML SDV IVPUSH ONE (19:19)
[2018-04-08] MEDS ORDERED: Metoclopramide 10 MG/2 ML SDV IV ONE (19:19)
--- NOTE | 2018-04-08 19:32 | EDM.PDOC ---
ED HPI GENERAL MEDICAL PROBLEM - General Chief Complaint: Gastrointestinal Problem Stated Complaint: CAME BY AMBULANCE Time Seen by Provider: 04/08/18 19:29 - History of Present Illness INITIAL COMMENTS - FREE TEXT/NARRATIVE: HISTORY AND PHYSICAL: History of present illness: Patient is a 28-year-old white male presents with concern of hyperemesis he's had vomiting since this a.m. he has had recurrent intermittent episodes of this for which he is currently being evaluated and worked up by Dr. Be this is usual customary he did not take his promethazine which she's been prescribed in the past he has been given Ativan and IV fluids in the emergency department per . He does use marijuana he denies other drug abuse the terms cyclic vomiting does not sound familiar to or patient. Review of systems: As per history of present illness and below otherwise all systems reviewed and negative. Past medical history: As per history of present illness and as reviewed below otherwise noncontributory. Surgical history: As per history of present illness and as reviewed below otherwise noncontributory. Social history: No reported history of drug or alcohol abuse. Family history: As per history of present illness and as reviewed below otherwise noncontributory. Physical exam: HEENT: Atraumatic, normocephalic, pupils reactive, negative for conjunctival pallor or scleral icterus, mucous membranes dry, throat clear, neck supple, nontender, trachea midline. Lungs: Clear to auscultation, breath sounds equal bilaterally, chest nontender. Heart: S1S2, regular, negative for clicks, rubs, or JVD. Abdomen: Soft, nondistended, nontender. Negative for masses or hepatosplenomegaly. Negative for costovertebral tenderness. Pelvis: Stable nontender. Genitourinary: Deferred. Rectal: Deferred. Extremities: Atraumatic, negative for cords or calf pain. Neurovascular unremarkable. Neuro: Awake, alert, oriented. Cranial nerves II through XII unremarkable. Cerebellum unremarkable. Motor and sensory unremarkable throughout. Exam nonfocal. Diagnostics: CBC CMP lipase UA urine drug screen chest x-ray Therapeutics: Saline 2 L bolus Zofran 4 mg IV Reglan 10 mg IV Benadryl 50 mg IV Impression: #1 hyperemesis with dehydration #2 history of chronic intermittent vomiting Definitive disposition and diagnosis as appropriate pending reevaluation and review of above. Middle Abdomen Pain Score (Numeric/FACES): 10 - Related Data Allergies Allergy/AdvReac Type Severity Reaction Status Date / Time No Known Allergies Allergy Verified 04/08/18 19:15 Home Meds: Home Meds FLUoxetine HCl [Prozac] 20 mg PO DAILY 90 Days #90 capsule 03/09/18 [Rx] Promethazine HCl 1 - 2 tab PO ASDIRECTED PRN 03/10/18 [History] Past Medical History - Past Health History Medical/Surgical History: Denies Medical/Surgical History HEENT History: Reports: None Cardiovascular History: Reports: None Respiratory History: Reports: None Gastrointestinal History: Reports: GERD Other Gastrointestinal History: epigastric pain, nausea, hx gastric ulcer Genitourinary History: Reports: None Musculoskeletal History: Reports: Fracture, Other (See Below) Other Musculoskeletal History: hx club feet, hx fx finger Neurological History: Reports: None Psychiatric History: Reports: Anxiety, Depression Endocrine/Metabolic History: Reports: None Hematologic History: Reports: None Immunologic History: Reports: None Oncologic (Cancer) History: Reports: None Dermatologic History: Reports: None - Infectious Disease History Infectious Disease History: Reports: Chicken Pox - Past Surgical History Other Musculoskeletal Surgeries/Procedures:: multiple surgeries for repair of club feet Social & Family History - Family History Family Medical History: Noncontributory - Tobacco Use Smoking Status *Q: Current Every Day Smoker Years of Tobacco use: 10 Packs/Tins Daily: 1 - Caffeine Use Caffeine Use: Reports: Coffee Other Caffeine Use: Occasionally - Recreational Drug Use Recreational Drug Use: Yes Recreational Drug Type: Reports: Marijuana/Hashish ED ROS GENERAL - Review of Systems Review Of Systems: ROS reveals no pertinent complaints other than HPI. ED EXAM, GENERAL - Physical Exam Exam: See Below (See dictation) Course - Vital Signs Last Recorded V/S: Last Vital Signs Temp 36.2 C 04/08/18 21:40 Pulse 64 04/08/18 21:40 Resp 14 04/08/18 21:40 BP 127/77 04/08/18 21:40 Pulse Ox 98 04/08/18 21:40 - Orders/Labs/Meds Orders: Active Orders 24 hr Category Date Time Status Chest 1V Frontal [CR] Stat Exams 04/08/18 19:20 Taken DRUG SCREEN, URINE [URCHEM] Stat Lab 04/08/18 21:03 Ordered UA W/MICROSCOPIC [URIN] Stat Lab 04/08/18 21:03 Ordered Saline Lock Insert [OM.PC] Stat Oth 04/08/18 19:10 Ordered Labs: Laboratory Tests 04/08/18 04/08/18 04/08/18 Range/Units 19:25 19:25 21:03 WBC 18.59 H (4.0-11.0) K/uL RBC 5.62 (4.50-5.90) M/uL Hgb 17.1 H (13.0-17.0) g/dL Hct 46.8 (38.0-50.0) % MCV 83.3 (80.0-98.0) fL MCH 30.4 (27.0-32.0) pg MCHC 36.5 (31.0-37.0) g/dL RDW Std Deviation 38.4 (28.0-62.0) fl RDW Coeff of Kathryn 13 (11.0-15.0) % Plt Count 292 (150-400) K/uL MPV 9.80 (7.40-12.00) fL Neut % (Auto) 90.1 H (48.0-80.0) % Lymph % (Auto) 8.4 L (16.0-40.0) % Bow[place] % (Auto) 1.3 (0.0-15.0) % Eos % (Auto) 0.0 (0.0-7.0) % Baso % (Auto) 0.2 (0.0-1.5) % Neut # (Auto) 16.7 H (1.4-5.7) K/uL Lymph # (Auto) 1.6 (0.6-2.4) K/uL Bowman # (Auto) 0.3 (0.0-0.8) K/uL Eos # (Auto) 0.0 (0.0-0.7) K/uL Baso # (Auto) 0.0 (0.0-0.1) K/uL Nucleated RBC % 0.0 /100WBC Nucleated RBCs # 0 K/uL Sodium 137 (136-148) mmol/L Potassium 4.0 (3.5-5.1) mmol/L Chloride 102 (98-107) mmol/L Carbon Dioxide 21.2 (21.0-32.0) mmol/L BUN 20 H (7.0-18.0) mg/dL Creatinine 1.4 H (0.8-1.3) mg/dL Est Cr Clr Drug Dosing 67.72 mL/min Estimated GFR (MDRD) 59.9 ml/min Glucose 174 H (74-106) mg/dL Calcium 10.2 H (8.5-10.1) mg/dL Total Bilirubin 0.9 (0.2-1.0) mg/dL AST 15 (15-37) IU/L ALT 37 (14-63) IU/L Alkaline Phosphatase 57 (46-116) U/L Total Protein 8.2 (6.4-8.2) g/dL Albumin 5.1 H (3.4-5.0) g/dL Globulin 3.1 (2.0-3.5) g/dL Albumin/Globulin Ratio 1.7 (1.3-2.8) Lipase 81 (73-393) U/L Urine Color YELLOW Urine Appearance CLEAR Urine pH 8.0 (5.0-8.0) Ur Specific [place] 1.015 (1.001-1.035) Urine Protein TRACE (NEGATIVE) mg/dL Urine Glucose (UA) NEGATIVE (NEGATIVE) mg/dL Urine Ketones TRACE H (NEGATIVE) mg/dL Urine Occult Blood NEGATIVE (NEGATIVE) Urine Nitrite NEGATIVE (NEGATIVE) Urine Bilirubin NEGATIVE (NEGATIVE) Urine Urobilinogen 0.2 (<2.0) EU/dL Ur Leukocyte Esterase NEGATIVE (NEGATIVE) Urine RBC 0-1 (0-2/HPF) Urine WBC 0-1 (0-5/HPF) Ur Epithelial Cells RARE (NONE-FEW) Urine Bacteria RARE (NEGATIVE) Urine Opiates Screen (NEGATIVE) Ur Oxycodone Screen (NEGATIVE) Urine Methadone Screen (NEGATIVE) Ur Barbiturates Screen (NEGATIVE) Ur Phencyclidine Scrn (NEGATIVE) Ur Amphetamine Screen (NEGATIVE) U Methamphetamines Scrn (NEGATIVE) U Benzodiazepines Scrn (NEGATIVE) U Cocaine Metab Screen (NEGATIVE) U Marijuana (THC) Screen (NEGATIVE) 04/08/18 Range/Units 21:03 WBC (4.0-11.0) K/uL RBC (4.50-5.90) M/uL Hgb (13.0-17.0) g/dL Hct (38.0-50.0) % MCV (80.0-98.0) fL MCH (27.0-32.0) pg MCHC (31.0-37.0) g/dL RDW Std Deviation (28.0-62.0) fl RDW Coeff of Kathryn (11.0-15.0) % Plt Count (150-400) K/uL MPV (7.40-12.00) fL Neut % (Auto) (48.0-80.0) % Lymph % (Auto) (16.0-40.0) % Bow[place] % (Auto) (0.0-15.0) % Eos % (Auto) (0.0-7.0) % Baso % (Auto) (0.0-1.5) % Neut # (Auto) (1.4-5.7) K/uL Lymph # (Auto) (0.6-2.4) K/uL Bowman # (Auto) (0.0-0.8) K/uL Eos # (Auto) (0.0-0.7) K/uL Baso # (Auto) (0.0-0.1) K/uL Nucleated RBC % /100WBC Nucleated RBCs # K/uL Sodium (136-148) mmol/L Potassium (3.5-5.1) mmol/L Chloride (98-107) mmol/L Carbon Dioxide (21.0-32.0) mmol/L BUN (7.0-18.0) mg/dL Creatinine (0.8-1.3) mg/dL Est Cr Clr Drug Dosing mL/min Estimated GFR (MDRD) ml/min Glucose (74-106) mg/dL Calcium (8.5-10.1) mg/dL Total Bilirubin (0.2-1.0) mg/dL AST (15-37) IU/L ALT (14-63) IU/L Alkaline Phosphatase (46-116) U/L Total Protein (6.4-8.2) g/dL Albumin (3.4-5.0) g/dL Globulin (2.0-3.5) g/dL Albumin/Globulin Ratio (1.3-2.8) Lipase (73-393) U/L Urine Color Urine Appearance Urine pH (5.0-8.0) Ur Specific [place] (1.001-1.035) Urine Protein (NEGATIVE) mg/dL Urine Glucose (UA) (NEGATIVE) mg/dL Urine Ketones (NEGATIVE) mg/dL Urine Occult Blood (NEGATIVE) Urine Nitrite (NEGATIVE) Urine Bilirubin (NEGATIVE) Urine Urobilinogen (<2.0) EU/dL Ur Leukocyte Esterase (NEGATIVE) Urine RBC (0-2/HPF) Urine WBC (0-5/HPF) Ur Epithelial Cells (NONE-FEW) Urine Bacteria (NEGATIVE) Urine Opiates Screen NEGATIVE (NEGATIVE) Ur Oxycodone Screen NEGATIVE (NEGATIVE) Urine Methadone Screen NEGATIVE (NEGATIVE) Ur Barbiturates Screen NEGATIVE (NEGATIVE) Ur Phencyclidine Scrn NEGATIVE (NEGATIVE) Ur Amphetamine Screen NEGATIVE (NEGATIVE) U Methamphetamines Scrn NEGATIVE (NEGATIVE) U Benzodiazepines Scrn NEGATIVE (NEGATIVE) U Cocaine Metab Screen NEGATIVE (NEGATIVE) U Marijuana (THC) Screen POSITIVE (NEGATIVE) Meds: Medications Discontinued Medications Generic Name Dose Route Start Last Admin Trade Name Freq PRN Reason Stop Dose Admin Diphenhydramine HCl 50 mg 04/08/18 19:19 04/08/18 19:25 Benadryl IVPUSH 04/08/18 19:20 50 mg ONETIME ONE Administration Sodium Chloride 1,000 mls @ 999 mls/hr 04/08/18 19:10 04/08/18 19:18 Normal Saline IV 04/08/18 20:10 999 mls/hr STAT ONE Administration Sodium Chloride 1,000 mls @ 999 mls/hr 04/08/18 19:19 04/08/18 20:05 Normal Saline IV 04/08/18 20:19 999 mls/hr STAT ONE Administration Metoclopramide HCl 10 mg 04/08/18 19:19 04/08/18 19:25 Reglan IV 04/08/18 19:20 10 mg ONETIME ONE Administration Ondansetron HCl 4 mg 04/08/18 19:10 04/08/18 19:18 Zofran IVPUSH 04/08/18 19:11 4 mg ONETIME ONE Administration Sodium Chloride 10 ml 04/08/18 19:10 Saline Flush FLUSH ASDIRECTED PRN Keep Vein Open Sodium Chloride 2.5 ml 04/08/18 19:10 Saline Flush FLUSH ASDIRECTED PRN Keep Vein Open Departure - Departure Time of Disposition: 06:41 Disposition: Home, Self-Care 01 Condition: Good Clinical Impression: Vomiting, Dehydration - Discharge Information *PRESCRIPTION DRUG MONITORING PROGRAM REVIEWED*: Not Applicable *COPY OF PRESCRIPTION DRUG MONITORING REPORT IN PATIENT EDITA: Not Applicable Instructions: Nausea and Vomiting, Adult, [id number] Referrals: PCP,Unknown [Primary Care Provider] - Forms: ED Department Discharge Additional Instructions: The following information is given to patients seen in the emergency department who are being discharged to home. This information is to outline your options for follow-up care. We provide all patients seen in our emergency department with a follow-up referral. The need for follow-up, as well as the timing and circumstances, are variable depending upon the specifics of your emergency department visit. If you don't have a primary care physician on staff, we will provide you with a referral. We always advise you to contact your personal physician following an emergency department visit to inform them of the circumstance of the visit and for follow-up with them and/or the need for any referrals to a consulting specialist. The emergency department will also refer you to a specialist when appropriate. This referral assures that you have the opportunity for followup care with a specialist. All of these measure are taken in an effort to provide you with optimal care, which includes your followup. Under all circumstances we always encourage you to contact your private physician who remains a resource for coordinating your care. When calling for followup care, please make the office aware that this follow-up is from your recent emergency room visit. If for any reason you are refused follow-up, please contact the [facility] emergency department at and asked to speak to the emergency department charge nurse. Continue current medications follow private medical doctor return as needed as discussed
[2018-04-08 20:58] VITALS: BP 127/77
--- NOTE | 2018-04-09 20:46 | CR ---
EXAM DATE: 04/08/18 PATIENT'S AGE: 28 Patient: FRANK VARGAS Facility: [place], [place] Site . Site : 1990 Study: XRay Chest [id number]/23/2018 8:02:20 PM Ordering Physician: Doctor Forbes Final Report: INDICATION: vomiting TECHNIQUE: Chest 1 view COMPARISON: March 07, 2018 FINDINGS: Cardiovascular and mediastinum: Heart size and vasculature are normal in caliber and appearance. Mediastinum is within normal limits. Lungs and pleural space: No focal consolidation. No sign of pleural effusion. No pneumothorax. Bones and soft tissues: No significant findings. IMPRESSION: No acute cardiopulmonary disease. Dictated by Bishnu Young MD @ 04/08/2018 8:07:59 PM Dictated by: Bishnu Young MD @ 04/08/2018 20:08:06 (Electronic Signature) Report Signed by Proxy. [email or web address]
== END 2018-04-08 21:40 | disposition home or self-care (01) ==
LOC: MW.ED 18:55
DX: E86.0 Dehydration (principal); R11.10 Vomiting, unspecified; F41.9 Anxiety disorder, unspecified; F32.9 Major depressive disorder, single episode, unspecified; F17.210 Nicotine dependence, cigarettes, uncomplicated; Z79.899 Other long term (current) drug therapy
CPT/HCPCS: 36415; 71045; 80053; 80305; 81001; 83690; 85025; 96361; 96374; 96375; 99284; J1200; J2405; J2765; J7040

== ENCOUNTER 2018-04-10 06:38 | Emergency (ER) | payer BC, MEDICAID, OTHER, SELFPAY ==
[2018-04-10] MEDS ORDERED: Sodium Chloride 0.9% 2.5 ML Syringe FLUSH PRN (07:09)
[2018-04-10] MEDS ORDERED: Sodium Chloride 0.9% 10 ML Syringe FLUSH PRN (07:09)
[2018-04-10] MEDS ORDERED: Metoclopramide 10 MG/2 ML SDV IV ONE (07:09)
[2018-04-10] MEDS ORDERED: LORazepam 2 MG/ML SDV IVPUSH ONE (07:09)
[2018-04-10] MEDS ORDERED: diphenhydrAMINE 50 MG/ML SDV IVPUSH ONE (07:09)
[2018-04-10] MEDS ORDERED: Sodium Chloride 0.9% 1,000 ML IV ONE ×2 (07:09→07:58)
[2018-04-10] MEDS ORDERED: Famotidine 20 MG/2 ML SDV IVPUSH ONE (07:09)
--- NOTE | 2018-04-10 07:15 | EDM.PDOC ---
ED HPI GENERAL MEDICAL PROBLEM - General Chief Complaint: Gastrointestinal Problem Stated Complaint: THROWING UP Time Seen by Provider: 04/10/18 07:00 - History of Present Illness INITIAL COMMENTS - FREE TEXT/NARRATIVE: HISTORY AND PHYSICAL: History of present illness: The patient is a 28-year-old male with a history of anxiety disorder and cannabinoid hyperemesis syndrome who was seen here in the emergency department 2 days ago for intractable vomiting and represented with same. The patient was admitted the end of February from March 07 to the for similar symptoms and had a HIDA scan at that time which was normal. He is currently following in our family practice clinic with Dr. Be and in fact spoke with him yesterday and was prescribed Reglan and promethazine pills which he says he cannot keep down. This episode is similar to prior episodes with forceful retching/dry heaves. Patient says that he last smoked marijuana earlier this morning. He has not had any fevers chills cough or any new triggers. The patient is unaware of any diagnosis of cyclic vomiting and the father also is unaware of any of these diagnoses. 2 days ago when the patient presented with similar symptoms he was treated with IV fluids and medications and had a normal workup. He felt better and was discharged home. The patient says that he is having severe abdominal cramping due to the retching. All of these symptoms are similar to his prior episodes. On arrival he was having dry heaves and then for 30 minutes did not have any episodes of vomiting until I was in the room evaluating him. The patient states that he has not had diarrhea with this The patient only complains of abdominal cramping with the vomiting and especially after the vomiting but no chest pain or shortness of breath Review of systems: As per history of present illness and below otherwise all systems reviewed and negative. Past medical history: As per history of present illness and as reviewed below otherwise noncontributory. Surgical history: As per history of present illness and as reviewed below otherwise noncontributory. Social history: No reported history of drug or alcohol abuse. Family history: As per history of present illness and as reviewed below otherwise noncontributory. Physical exam: General: Well-developed well-nourished thin man who is cooperative and somewhat uncomfortable in the room as I saw him during a vomiting episode. Vital signs were noted by me. HEENT: Atraumatic, normocephalic, pupils reactive, negative for conjunctival pallor or scleral icterus, mucous membranes tacky throat clear, neck supple, nontender, trachea midline. Lungs: Clear to auscultation, breath sounds equal bilaterally, chest nontender. No chest wall tenderness or crepitus are appreciated there is no wheezing or stridor. Heart: S1S2, regular rate and rhythm no overt murmurs Abdomen: Soft, nondistended, bowel sounds are hypoactive and there is diffuse abdominal tenderness more in the mid abdomen without any focality right or left. The abdomen is scaphoid there is no rebound or guarding.. Negative for masses or hepatosplenomegaly. Pelvis: Stable nontender. Genitourinary: Deferred. Rectal: Deferred. Extremities: Atraumatic, negative for cords or calf pain. Neurovascular unremarkable. Neuro: Awake, alert, oriented. Cranial nerves II through XII unremarkable. Cerebellum unremarkable. Motor and sensory unremarkable throughout. Exam nonfocal. Diagnostics: CBC CMP amylase lipase UA abdominal film chest x-ray urine culture Therapeutics: 2 L IV fluids Benadryl Reglan Ativan Pepcid Toradol The lab results from April 08 were reviewed by me in the WBC count on that date was [id number], so today's value is improved. All testing results are currently reviewed and the patient since receiving medications has been resting comfortably with no retching or vomiting and significant improvement of his abdominal cramping and is overall looking much improved and feeling much improved. At the conclusion of the second liter of fluid we will try a by mouth challenge of ice chips or a popsicle and if the patient tolerates I will recommend discharge home with promethazine suppositories until and a small amount of Ativan I will recommend strict follow- up with Dr. Be on Thursday morning and dietary restrictions as well as reduction /stoppage of marijuana use. Impression: Cyclic vomiting with history of same Definitive disposition and diagnosis as appropriate pending reevaluation and review of above. abdominal Pain Score (Numeric/FACES): 8 - Related Data Allergies Allergy/AdvReac Type Severity Reaction Status Date / Time No Known Allergies Allergy Verified 04/10/18 06:43 Home Meds: Home Meds . [No Known Home Meds] 04/10/18 [History] Past Medical History - Past Health History Medical/Surgical History: Denies Medical/Surgical History HEENT History: Reports: None Cardiovascular History: Reports: None Respiratory History: Reports: None Gastrointestinal History: Reports: GERD Other Gastrointestinal History: epigastric pain, nausea, hx gastric ulcer Genitourinary History: Reports: None Musculoskeletal History: Reports: Fracture, Other (See Below) Other Musculoskeletal History: hx club feet, hx fx finger Neurological History: Reports: None Psychiatric History: Reports: Anxiety, Depression Endocrine/Metabolic History: Reports: None Hematologic History: Reports: None Immunologic History: Reports: None Oncologic (Cancer) History: Reports: None Dermatologic History: Reports: None - Infectious Disease History Infectious Disease History: Reports: Chicken Pox - Past Surgical History GI Surgical History: Reports: None Musculoskeletal Surgical History: Reports: Other (See Below) Other Musculoskeletal Surgeries/Procedures:: multiple surgeries for repair of club feet Social & Family History - Family History Family Medical History: Noncontributory - Tobacco Use Smoking Status *Q: Current Every Day Smoker Years of Tobacco use: 15 Packs/Tins Daily: 0.5 - Caffeine Use Caffeine Use: Reports: Coffee, Energy Drinks, Soda Other Caffeine Use: Occasionally - Recreational Drug Use Recreational Drug Use: Yes Recreational Drug Type: Reports: Marijuana/Hashish Recreational Drug Use Frequency: Daily Recreational Drug Last Use: "today" ED ROS GENERAL - Review of Systems Review Of Systems: ROS reveals no pertinent complaints other than HPI. ED EXAM, GENERAL - Physical Exam Exam: See Below (See dictation) Course - Vital Signs Last Recorded V/S: Last Vital Signs Temp 35.9 C 04/10/18 06:41 Pulse 80 04/10/18 08:23 Resp 15 04/10/18 08:23 BP 121/67 04/10/18 08:23 Pulse Ox 98 04/10/18 08:23 - Orders/Labs/Meds Orders: Active Orders 24 hr Category Date Time Status Blood Glucose Check, Bedside [RC] ONETIME Care 04/10/18 07:08 Active Abdomen Series w Chest 1V [CR] Stat Exams 04/10/18 07:09 Taken CULTURE URINE [RM] Stat Lab 04/10/18 07:10 Received UA W/MICROSCOPIC [URIN] Stat Lab 04/10/18 07:10 Ordered Sodium Chloride 0.9% [Saline Flush] Med 04/10/18 07:09 Active 10 ml FLUSH ASDIRECTED PRN Sodium Chloride 0.9% [Saline Flush] Med 04/10/18 07:09 Active 2.5 ml FLUSH ASDIRECTED PRN Saline Lock Insert [OM.PC] Stat Oth 04/10/18 07:08 Ordered Medication Orders Sodium Chloride (Saline Flush) 10 ml FLUSH ASDIRECTED PRN PRN Reason: Keep Vein Open Last Admin: 04/10/18 07:29 Dose: 10 ml Sodium Chloride (Saline Flush) 2.5 ml FLUSH ASDIRECTED PRN PRN Reason: Keep Vein Open Last Admin: 04/10/18 07:29 Dose: 2.5 ml Labs: Laboratory Tests 04/10/18 04/10/18 04/10/18 Range/Units 06:45 06:45 07:10 WBC 16.01 H (4.0-11.0) K/uL RBC 5.74 (4.50-5.90) M/uL Hgb 17.4 H (13.0-17.0) g/dL Hct 47.7 (38.0-50.0) % MCV 83.1 (80.0-98.0) fL MCH 30.3 (27.0-32.0) pg MCHC 36.5 (31.0-37.0) g/dL RDW Std Deviation 38.9 (28.0-62.0) fl RDW Coeff of Kathryn 13 (11.0-15.0) % Plt Count 336 (150-400) K/uL MPV 10.10 (7.40-12.00) fL Neut % (Auto) 62.1 (48.0-80.0) % Lymph % (Auto) 23.6 (16.0-40.0) % [place] % (Auto) 13.6 (0.0-15.0) % Eos % (Auto) 0.2 (0.0-7.0) % Baso % (Auto) 0.5 (0.0-1.5) % Neut # (Auto) 9.9 H (1.4-5.7) K/uL Lymph # (Auto) 3.8 H (0.6-2.4) K/uL [place] # (Auto) 2.2 H (0.0-0.8) K/uL Eos # (Auto) 0.0 (0.0-0.7) K/uL Baso # (Auto) 0.1 (0.0-0.1) K/uL Nucleated RBC % 0.0 /100WBC Nucleated RBCs # 0 K/uL Sodium 136 (136-148) mmol/L Potassium 3.4 L (3.5-5.1) mmol/L Chloride 98 (98-107) mmol/L Carbon Dioxide 16.7 L (21.0-32.0) mmol/L BUN 24 H (7.0-18.0) mg/dL Creatinine 1.5 H (0.8-1.3) mg/dL Est Cr Clr Drug Dosing 60.60 mL/min Estimated GFR (MDRD) 55.3 ml/min Glucose 126 H (74-106) mg/dL POC Glucose (60-110) mg/dL Calcium 10.7 H (8.5-10.1) mg/dL Total Bilirubin 0.9 (0.2-1.0) mg/dL AST 21 (15-37) IU/L ALT 33 (14-63) IU/L Alkaline Phosphatase 56 (46-116) U/L Total Protein 8.8 H (6.4-8.2) g/dL Albumin 5.6 H (3.4-5.0) g/dL Globulin 3.2 (2.0-3.5) g/dL Albumin/Globulin Ratio 1.8 (1.3-2.8) Amylase 50 (25-115) U/L Lipase 111 (73-393) U/L Urine Color YELLOW Urine Appearance HAZY Urine pH 6.0 (5.0-8.0) Ur Specific [place] >= 1.030 (1.001-1.035) Urine Protein 100 (NEGATIVE) mg/dL Urine Glucose (UA) NEGATIVE (NEGATIVE) mg/dL Urine Ketones TRACE H (NEGATIVE) mg/dL Urine Occult Blood NEGATIVE (NEGATIVE) Urine Nitrite POSITIVE H (NEGATIVE) Urine Bilirubin MODERATE H (NEGATIVE) Urine Ictotest NEGATIVE Urine Urobilinogen 1.0 (<2.0) EU/dL Ur Leukocyte Esterase NEGATIVE (NEGATIVE) Urine RBC 1-2 (0-2/HPF) Urine WBC 1-2 (0-5/HPF) Ur Epithelial Cells RARE (NONE-FEW) Urine Bacteria FEW (NEGATIVE) Urine Mucus LIGHT (NONE-MOD) Urinalysis Comment 04/10/18 Range/Units 07:56 WBC (4.0-11.0) K/uL RBC (4.50-5.90) M/uL Hgb (13.0-17.0) g/dL Hct (38.0-50.0) % MCV (80.0-98.0) fL MCH (27.0-32.0) pg MCHC (31.0-37.0) g/dL RDW Std Deviation (28.0-62.0) fl RDW Coeff of Kathryn (11.0-15.0) % Plt Count (150-400) K/uL MPV (7.40-12.00) fL Neut % (Auto) (48.0-80.0) % Lymph % (Auto) (16.0-40.0) % [place] % (Auto) (0.0-15.0) % Eos % (Auto) (0.0-7.0) % Baso % (Auto) (0.0-1.5) % Neut # (Auto) (1.4-5.7) K/uL Lymph # (Auto) (0.6-2.4) K/uL [place] # (Auto) (0.0-0.8) K/uL Eos # (Auto) (0.0-0.7) K/uL Baso # (Auto) (0.0-0.1) K/uL Nucleated RBC % /100WBC Nucleated RBCs # K/uL Sodium (136-148) mmol/L Potassium (3.5-5.1) mmol/L Chloride (98-107) mmol/L Carbon Dioxide (21.0-32.0) mmol/L BUN (7.0-18.0) mg/dL Creatinine (0.8-1.3) mg/dL Est Cr Clr Drug Dosing mL/min Estimated GFR (MDRD) ml/min Glucose (74-106) mg/dL POC Glucose 96 (60-110) mg/dL Calcium (8.5-10.1) mg/dL Total Bilirubin (0.2-1.0) mg/dL AST (15-37) IU/L ALT (14-63) IU/L Alkaline Phosphatase (46-116) U/L Total Protein (6.4-8.2) g/dL Albumin (3.4-5.0) g/dL Globulin (2.0-3.5) g/dL Albumin/Globulin Ratio (1.3-2.8) Amylase (25-115) U/L Lipase (73-393) U/L Urine Color Urine Appearance Urine pH (5.0-8.0) Ur Specific [place] (1.001-1.035) Urine Protein (NEGATIVE) mg/dL Urine Glucose (UA) (NEGATIVE) mg/dL Urine Ketones (NEGATIVE) mg/dL Urine Occult Blood (NEGATIVE) Urine Nitrite (NEGATIVE) Urine Bilirubin (NEGATIVE) Urine Ictotest Urine Urobilinogen (<2.0) EU/dL Ur Leukocyte Esterase (NEGATIVE) Urine RBC (0-2/HPF) Urine WBC (0-5/HPF) Ur Epithelial Cells (NONE-FEW) Urine Bacteria (NEGATIVE) Urine Mucus (NONE-MOD) Urinalysis Comment Meds: Medications Generic Name Dose Route Start Last Admin Trade Name Inessa PRN Reason Stop Dose Admin Sodium Chloride 10 ml 04/10/18 07:09 04/10/18 07:29 Saline Flush FLUSH 10 ml ASDIRECTED PRN Administration Keep Vein Open Sodium Chloride 2.5 ml 04/10/18 07:09 04/10/18 07:29 Saline Flush FLUSH 2.5 ml ASDIRECTED PRN Administration Keep Vein Open Discontinued Medications Generic Name Dose Route Start Last Admin Trade Name Freana PRN Reason Stop Dose Admin Diphenhydramine HCl 50 mg 04/10/18 07:09 04/10/18 07:26 Benadryl IVPUSH 04/10/18 07:10 50 mg ONETIME ONE Administration Famotidine 20 mg 04/10/18 07:09 04/10/18 07:25 Pepcid IVPUSH 04/10/18 07:10 20 mg ONETIME ONE Administration Sodium Chloride 1,000 mls @ 999 mls/hr 04/10/18 07:09 04/10/18 07:22 Normal Saline IV 04/10/18 08:09 999 mls/hr STAT ONE Administration Sodium Chloride 1,000 mls @ 999 mls/hr 04/10/18 07:58 04/10/18 08:20 Normal Saline IV 04/10/18 08:58 999 mls/hr STAT ONE Administration Ketorolac Tromethamine 30 mg 04/10/18 07:16 04/10/18 07:27 Toradol IVPUSH 04/10/18 07:17 30 mg ONETIME ONE Administration Lorazepam 1 mg 04/10/18 07:09 04/10/18 07:23 Ativan IVPUSH 04/10/18 07:10 1 mg ONETIME ONE Administration Metoclopramide HCl 10 mg 04/10/18 07:09 04/10/18 07:24 Reglan IV 04/10/18 07:10 10 mg ONETIME ONE Administration Departure - Departure Time of Disposition: :10 Disposition: Home, Self-Care 01 Condition: Good Clinical Impression: Hyperemesis, Abdominal cramping - Discharge Information Referrals: PCP,None [Primary Care Provider] - Forms: ED Department Discharge Additional Instructions: The following information is given to patients seen in the emergency department who are being discharged to home. This information is to outline your options for follow-up care. We provide all patients seen in our emergency department with a follow-up referral. The need for follow-up, as well as the timing and circumstances, are variable depending upon the specifics of your emergency department visit. If you don't have a primary care physician on staff, we will provide you with a referral. We always advise you to contact your personal physician following an emergency department visit to inform them of the circumstance of the visit and for follow-up with them and/or the need for any referrals to a consulting specialist. The emergency department will also refer you to a specialist when appropriate. This referral assures that you have the opportunity for followup care with a specialist. All of these measure are taken in an effort to provide you with optimal care, which includes your followup. Under all circumstances we always encourage you to contact your private physician who remains a resource for coordinating your care. When calling for followup care, please make the office aware that this follow-up is from your recent emergency room visit. If for any reason you are refused follow-up, please contact the [facility] emergency department at and ask to speak to the emergency department charge nurse. [facility] Primary care- Internal Medicine and Family [address] [address] Please contact and follow-up in the clinic on Thursday or Thursday of next week and fill the prescriptions for your new medications that I given you today and utilize these as indicated and described. His tried to push small sips of clear fluids such as Gatorade and water and eat ice chips popsicles and bites of bland food as tolerated. Should only be eating small volumes and small amounts every 1-2 hours. Return to ER as needed and as discussed - My Orders Last 24 Hours: My Active Orders 04/10/18 07:08 Blood Glucose Check, Bedside [RC] ONETIME Saline Lock Insert [OM.PC] Stat 04/10/18 07:09 Abdomen Series w Chest 1V [CR] Stat Sodium Chloride 0.9% [Saline Flush] 10 ml FLUSH ASDIRECTED PRN Sodium Chloride 0.9% [Saline Flush] 2.5 ml FLUSH ASDIRECTED PRN 04/10/18 07:10 CULTURE URINE [RM] Stat UA W/MICROSCOPIC [URIN] Stat - Assessment/Plan Last 24 Hours: My Active Orders 04/10/18 07:08 Blood Glucose Check, Bedside [RC] ONETIME Saline Lock Insert [OM.PC] Stat 04/10/18 07:09 Abdomen Series w Chest 1V [CR] Stat Sodium Chloride 0.9% [Saline Flush] 10 ml FLUSH ASDIRECTED PRN Sodium Chloride 0.9% [Saline Flush] 2.5 ml FLUSH ASDIRECTED PRN 04/10/18 07:10 CULTURE URINE [RM] Stat UA W/MICROSCOPIC [URIN] Stat
[2018-04-10] MEDS ORDERED: Ketorolac 30 MG/ML SDV IVPUSH ONE (07:16)
[2018-04-10 10:18] VITALS: BP 124/68
--- NOTE | 2018-04-12 11:17 | CR ---
EXAM DATE: 04/10/18 PATIENT'S AGE: 28 Patient: FRANK VARGAS Facility: [place], [place] Site . Site : 1990 Study: XRay Chest/Abd [id number]/25/2018 8:00:05 AM Ordering Physician: Clint Pena Final Report: INDICATION: Nausea and vomiting. COMPARISON: Radiographic examination of the abdomen January 24, 2018 ;Radiographic examination of the chest March 07, 2018 and April 08, 2018. TECHNIQUE: Single PA chest and 2 view study of the abdomen. FINDINGS: Normal size cardiac silhouette. Clear lung dodge without evidence of acute pneumonic infiltrates or CHF. No pneumothorax or pleural effusion. Nonspecific intestinal gas pattern. No evidence of intestinal obstruction. No abnormal intra -abdominal calcifications. IMPRESSION: Negative PA chest and -2 view study of the abdomen. Dictated by Ramo Sherwood MD @ Apr 10 2018 8:27AM (Electronic Signature) Report Signed by Proxy. AMPARO
== END 2018-04-10 09:43 | disposition home or self-care (01) ==
LOC: MW.ED 06:38
DX: G43.A0 Cyclical vomiting, in migraine, not intractable (principal); R10.9 Unspecified abdominal pain; F17.210 Nicotine dependence, cigarettes, uncomplicated
CPT/HCPCS: 36415; 74022; 80053; 81001; 82150; 82962; 83690; 85025; 87086; 96361; 96374; 96375; 99284; J1200; J1885; J2060; J2765; J3490; J7040

== ENCOUNTER 2019-04-27 16:07 | Emergency (ER) | payer MEDICAID, OTHER ==
[2019-04-27] MEDS ORDERED: Ondansetron 4 MG/2 ML SDV IVPUSH ONE ×2 (16:08→17:05)
[2019-04-27] MEDS ORDERED: Sodium Chloride 0.9% 1,000 ML IV ONE ×2 (16:08→17:06)
--- NOTE | 2019-04-27 16:17 | EDM.PDOC ---
<Elysia Manrique E - Last Filed: 04/27/19 18:30> ED HPI GENERAL MEDICAL PROBLEM - General Chief Complaint: Gastrointestinal Problem Stated Complaint: UNKNOWN ISSUE Time Seen by Provider: 04/27/19 16:08 - History of Present Illness INITIAL COMMENTS - FREE TEXT/NARRATIVE: Assumed care of this patient at 1800. I did review the lab work. CT and chest x- ray are negative. Patient's vital signs are stable. Has not had any vomiting/ retching since assuming care of this patient. All findings were shared with the patient. He states he does feel well enough to go home. Sister at bedside was reviewed the discharge instructions and supportive care measures. Plan: 1. Stop smoking marijuana 2. You may use the Zofran as needed for nausea management. Small frequent sips of fluids to prevent dehydration. 3. Follow-up with your primary care provider as we discussed. Return to the ED as needed and as discussed. - Related Data Allergies Allergy/AdvReac Type Severity Reaction Status Date / Time No Known Allergies Allergy Verified 04/27/19 16:12 Home Meds: Home Meds Promethazine [Phenergan] 1 tab PO BID 06/08/18 [History] Omeprazole Magnesium [Prilosec] 10 mg PO DAILY 04/27/19 [History] Ondansetron [Zofran ODT] 4 mg PO Q6H PRN #8 tab.dis 04/27/19 [Rx] ED ROS GENERAL - Review of Systems Review Of Systems: ROS reveals no pertinent complaints other than HPI. ED EXAM, GENERAL - Physical Exam Exam: See Below (See dictation) Course - Vital Signs Last Recorded V/S: Last Vital Signs Temp 36.6 C 04/27/19 19:34 Pulse 65 04/27/19 19:34 Resp 16 04/27/19 19:34 BP 134/73 04/27/19 19:34 Pulse Ox 98 04/27/19 19:34 - Orders/Labs/Meds Orders: Active Orders 24 hr Category Date Time Status EKG Documentation Completion [RC] STAT Care 04/27/19 16:59 Inactive CULTURE BLOOD [BC] Stat Lab 04/27/19 16:45 Received CULTURE BLOOD [BC] Stat Lab 04/27/19 17:03 Results Blood Culture x2 Reflex Set [OM.PC] Stat Oth 04/27/19 16:33 Ordered Labs: Laboratory Tests 04/27/19 04/27/19 04/27/19 Range/Units 16:10 16:10 17:03 WBC 13.88 H (4.0-11.0) K/uL RBC 6.58 H (4.50-5.90) M/uL Hgb 19.8 H (13.0-17.0) g/dL Hct 54.5 H (38.0-50.0) % MCV 82.8 (80.0-98.0) fL MCH 30.1 (27.0-32.0) pg MCHC 36.3 (31.0-37.0) g/dL RDW Std Deviation 38.8 (28.0-62.0) fl RDW Coeff of Kathryn 13 (11.0-15.0) % Plt Count 336 (150-400) K/uL MPV 9.80 (7.40-12.00) fL Neut % (Auto) 72.7 (48.0-80.0) % Lymph % (Auto) 13.7 L (16.0-40.0) % [place] % (Auto) 12.8 (0.0-15.0) % Eos % (Auto) 0.2 (0.0-7.0) % Baso % (Auto) 0.6 (0.0-1.5) % Neut # (Auto) 10.1 H (1.4-5.7) K/uL Lymph # (Auto) 1.9 (0.6-2.4) K/uL [place] # (Auto) 1.8 H (0.0-0.8) K/uL Eos # (Auto) 0.0 (0.0-0.7) K/uL Baso # (Auto) 0.1 (0.0-0.1) K/uL Nucleated RBC % 0.0 /100WBC Nucleated RBCs # 0 K/uL Lactate 1.7 (0.20-2.00) mmol/L Sodium 137 (136-148) mmol/L Potassium 4.0 (3.5-5.1) mmol/L Chloride 96 L (98-107) mmol/L Carbon Dioxide 25.2 (21.0-32.0) mmol/L BUN 18 (7.0-18.0) mg/dL Creatinine 1.8 H (0.8-1.3) mg/dL Est Cr Clr Drug Dosing 50.05 mL/min Estimated GFR (MDRD) 44.5 ml/min Glucose 146 H (74-106) mg/dL Calcium 11.0 H (8.5-10.1) mg/dL Total Bilirubin 1.3 H (0.2-1.0) mg/dL AST 19 (15-37) IU/L ALT 25 (14-63) IU/L Alkaline Phosphatase 69 (46-116) U/L Total Protein 9.0 H (6.4-8.2) g/dL Albumin 5.7 H (3.4-5.0) g/dL Globulin 3.3 (2.6-4.0) g/dL Albumin/Globulin Ratio 1.7 H (0.9-1.6) Lipase 103 (73-393) U/L Meds: Medications Discontinued Medications Generic Name Dose Route Start Last Admin Trade Name Freq PRN Reason Stop Dose Admin Sodium Chloride 1,000 mls @ 999 mls/hr 04/27/19 16:08 04/27/19 16:21 Normal Saline IV 04/27/19 17:08 999 mls/hr BOLUS ONE Administration Sodium Chloride 1,000 mls @ 999 minidrops/sec 04/27/19 17:06 04/27/19 17:08 Normal Saline IV 04/27/19 17:07 999 minidrops/sec .Bolus ONE Administration Sodium Chloride Confirm 04/27/19 17:10 04/27/19 17:15 Normal Saline Administered 04/27/19 17:11 20 mls/hr Dose Administration 20 mls @ as directed .ROUTE .STK-MED ONE Ondansetron HCl 4 mg 04/27/19 16:08 04/27/19 16:21 Zofran IVPUSH 04/27/19 16:09 4 mg ONETIME ONE Administration Ondansetron HCl 4 mg 04/27/19 17:05 04/27/19 17:08 Zofran IVPUSH 04/27/19 17:06 4 mg ONETIME ONE Administration Pantoprazole Sodium 80 mg 04/27/19 17:07 04/27/19 17:12 Protonix Iv IVPUSH 04/27/19 17:08 80 mg .BOLUS ONE Administration Promethazine HCl 25 mg 04/27/19 18:43 04/27/19 18:49 Phenergan IM 04/27/19 18:44 25 mg ONETIME ONE Administration Promethazine HCl Confirm 04/27/19 18:45 04/27/19 18:52 Phenergan Administered 04/27/19 18:46 Not Given Dose 25 mg .ROUTE .STK-MED ONE Departure - Departure Time of Disposition: 18:34 Disposition: Home, Self-Care 01 Clinical Impression: Hyperemesis, Cannabinoid hyperemesis syndrome - Discharge Information Prescriptions: Ondansetron [Zofran ODT] 4 mg PO Q6H PRN #8 tab.dis PRN Reason: Nausea Instructions: Nausea and Vomiting, Adult Referrals: PCP,Unknown [Primary Care Provider] - Forms: ED Department Discharge Additional Instructions: The following information is given to patients seen in the emergency department who are being discharged to home. This information is to outline your options for follow-up care. We provide all patients seen in our emergency department with a follow-up referral. The need for follow-up, as well as the timing and circumstances, are variable depending upon the specifics of your emergency department visit. If you don't have a primary care physician on staff, we will provide you with a referral. We always advise you to contact your personal physician following an emergency department visit to inform them of the circumstance of the visit and for follow-up with them and/or the need for any referrals to a consulting specialist. The emergency department will also refer you to a specialist when appropriate. This referral assures that you have the opportunity for follow-up care with a specialist. All of these measure are taken in an effort to provide you with optimal care, which includes your follow-up. Under all circumstances we always encourage you to contact your private physician who remains a resource for coordinating your care. When calling for follow-up care, please make the office aware that this follow-up is from your recent emergency room visit. If for any reason you are refused follow-up, please contact the [facility] Emergency Department at and asked to speak to the emergency department charge nurse. [facility] [address] [place] [id number] [facility] [address] [place] [id number] 1. Stop smoking marijuana 2. You may use the Zofran as needed for nausea management. Small frequent sips of fluids to prevent dehydration. 3. Follow-up with your primary care provider as we discussed. Return to the ED as needed and as discussed - My Orders Last 24 Hours: My Active Orders 04/27/19 16:33 Blood Culture x2 Reflex Set [OM.PC] Stat 04/27/19 16:45 CULTURE BLOOD [BC] Stat 04/27/19 16:59 EKG Documentation Completion [RC] STAT 04/27/19 17:03 CULTURE BLOOD [BC] Stat - Assessment/Plan Last 24 Hours: My Active Orders 04/27/19 16:33 Blood Culture x2 Reflex Set [OM.PC] Stat 04/27/19 16:45 CULTURE BLOOD [BC] Stat 04/27/19 16:59 EKG Documentation Completion [RC] STAT 04/27/19 17:03 CULTURE BLOOD [BC] Stat <Sherlyn Fabian - Last Filed: 04/28/19 10:02> ED HPI GENERAL MEDICAL PROBLEM - General Source of Information: Reports: Patient History Limitations: Reports: No Limitations - History of Present Illness INITIAL COMMENTS - FREE TEXT/NARRATIVE: HISTORY AND PHYSICAL: History of present illness: Patient is a 29-year-old male presents to the ED today with concern of vomiting 1 hour. Patient has been seen in the ED on several occasions due to hyperemesis that is thought to be secondary to cannabinoid induced hyperemesis. Patient states that his symptoms today are similar to all of his other prior episodes and states that there isn't any change in his symptoms. Patient states he did smoke marijuana late last night. Patient denies any other symptoms or concerns. Patient denies fever, chills, chest pain, shortness of breath, or cough. Denies headache, neck stiff ness, change in vision, syncope, or near syncope. Denies abdominal pain, diarrhea, constipation, or dysuria. Has not noted any blood in urine or stool. Patient has been eating and drinking appropriately. Review of systems: As per history of present illness and below otherwise all systems reviewed and negative. Past medical history: As per history of present illness and as reviewed below otherwise noncontributory. Surgical history: As per history of present illness and as reviewed below otherwise noncontributory. Social history: See social history for further information Family history: As per history of present illness and as reviewed below otherwise noncontributory. Physical exam: General: Patient is alert, oriented, and in no acute distress. Patient sitting on exam table vomiting multiple times. HEENT: Atraumatic, normocephalic, pupils equal and reactive bilaterally, negative for conjunctival pallor or scleral icterus, mucous membranes moist, TMs normal bilaterally, throat clear, neck supple, nontender, trachea midline. No drooling or trismus noted. No meningeal signs. No hot potato voice noted. Lungs: Clear to auscultation, breath sounds equal bilaterally, chest nontender. Heart: S1S2, regular rate and rhythm without overt murmur Abdomen: Exam is limited due to patient's nausea and discomfort. Soft, nondistended. Generalized severe discomfort with palpation. Negative for masses or hepatosplenomegaly. Negative for costovertebral tenderness. Pelvis: Stable nontender. Genitourinary: Deferred. Rectal: Deferred. Skin: Intact, warm, dry. No lesions or rashes noted. Extremities: Atraumatic, negative for cords or calf pain. Neurovascular unremarkable. Neuro: Awake, alert, oriented. Cranial nerves II through XII unremarkable. Cerebellum unremarkable. Motor and sensory unremarkable throughout. Exam nonfocal. Notes: Elysia Manrique NP has assumed care of this patient and will follow all remaining diagnostics and disposition. Diagnostics: CBC, CMP, lipase, UA, urine drug screen, Chest XR, lactate, blood cultures x 2, abd/pelvic ct Therapeutics: Saline, Zofran 8mg, protonix Prescription: Impression: Hyperemesis H/O cannabinoid induced hyperemesis Plan: Definitive disposition and diagnosis as appropriate pending reevaluation and review of above. Abdominal Pain Score (Numeric/FACES): 8 Past Medical History - Past Health History Medical/Surgical History: Denies Medical/Surgical History HEENT History: Reports: None Cardiovascular History: Reports: None Respiratory History: Reports: None Gastrointestinal History: Reports: GERD Other Gastrointestinal History: epigastric pain, nausea, hx gastric ulcer Genitourinary History: Reports: None Musculoskeletal History: Reports: Fracture, Other (See Below) Other Musculoskeletal History: hx club feet, hx fx finger Neurological History: Reports: None Psychiatric History: Reports: Anxiety, Depression Endocrine/Metabolic History: Reports: None Hematologic History: Reports: None Immunologic History: Reports: None Oncologic (Cancer) History: Reports: None Dermatologic History: Reports: None - Infectious Disease History Infectious Disease History: Reports: Chicken Pox - Past Surgical History GI Surgical History: Reports: None Musculoskeletal Surgical History: Reports: Other (See Below) Other Musculoskeletal Surgeries/Procedures:: multiple surgeries for repair of club feet Social & Family History - Family History Family Medical History: Noncontributory - Caffeine Use Caffeine Use: Reports: Coffee, Energy Drinks, Soda, Tea Other Caffeine Use: Occasionally Course - Vital Signs Last Recorded V/S: Last Vital Signs Temp 36.6 C 04/27/19 19:34 Pulse 65 04/27/19 19:34 Resp 16 04/27/19 19:34 BP 134/73 04/27/19 19:34 Pulse Ox 98 04/27/19 19:34 - Orders/Labs/Meds Labs: Laboratory Tests 04/27/19 04/27/19 04/27/19 Range/Units 16:10 16:10 17:03 WBC 13.88 H (4.0-11.0) K/uL RBC 6.58 H (4.50-5.90) M/uL Hgb 19.8 H (13.0-17.0) g/dL Hct 54.5 H (38.0-50.0) % MCV 82.8 (80.0-98.0) fL MCH 30.1 (27.0-32.0) pg MCHC 36.3 (31.0-37.0) g/dL RDW Std Deviation 38.8 (28.0-62.0) fl RDW Coeff of Kathryn 13 (11.0-15.0) % Plt Count 336 (150-400) K/uL MPV 9.80 (7.40-12.00) fL Neut % (Auto) 72.7 (48.0-80.0) % Lymph % (Auto) 13.7 L (16.0-40.0) % [place] % (Auto) 12.8 (0.0-15.0) % Eos % (Auto) 0.2 (0.0-7.0) % Baso % (Auto) 0.6 (0.0-1.5) % Neut # (Auto) 10.1 H (1.4-5.7) K/uL Lymph # (Auto) 1.9 (0.6-2.4) K/uL [place] # (Auto) 1.8 H (0.0-0.8) K/uL Eos # (Auto) 0.0 (0.0-0.7) K/uL Baso # (Auto) 0.1 (0.0-0.1) K/uL Nucleated RBC % 0.0 /100WBC Nucleated RBCs # 0 K/uL Lactate 1.7 (0.20-2.00) mmol/L Sodium 137 (136-148) mmol/L Potassium 4.0 (3.5-5.1) mmol/L Chloride 96 L (98-107) mmol/L Carbon Dioxide 25.2 (21.0-32.0) mmol/L BUN 18 (7.0-18.0) mg/dL Creatinine 1.8 H (0.8-1.3) mg/dL Est Cr Clr Drug Dosing 50.05 mL/min Estimated GFR (MDRD) 44.5 ml/min Glucose 146 H (74-106) mg/dL Calcium 11.0 H (8.5-10.1) mg/dL Total Bilirubin 1.3 H (0.2-1.0) mg/dL AST 19 (15-37) IU/L ALT 25 (14-63) IU/L Alkaline Phosphatase 69 (46-116) U/L Total Protein 9.0 H (6.4-8.2) g/dL Albumin 5.7 H (3.4-5.0) g/dL Globulin 3.3 (2.6-4.0) g/dL Albumin/Globulin Ratio 1.7 H (0.9-1.6) Lipase 103 (73-393) U/L
[2019-04-27 16:54] LABS: CARBON DIOXIDE,CO2 25.2 mmol/L (21.0-32.0)
[2019-04-27] MEDS ORDERED: Pantoprazole 40 MG Vial IVPUSH ONE (17:07)
[2019-04-27] MEDS ORDERED: Sodium Chloride 0.9% 20 ML ONE (17:10)
--- NOTE | 2019-04-27 17:41 | CR ---
INDICATION: STOMACH PAIN, UNCONTROLLED VOMITING. TECHNIQUE: Chest 1 view. COMPARISON: 06/08/18 FINDINGS: Cardiovascular and mediastinum: Heart size and vasculature are normal in caliber and appearance. Mediastinum is within normal limits. Lungs and pleural space: Lungs are clear. No sign of infiltrate or mass. No sign of pleural effusion. No pneumothorax. Bones and soft tissues: No significant findings. IMPRESSION: Unremarkable chest. Dictated by: Anjel Xie MD @ 04/27/2019 17:40:51 (Electronically Signed)
--- NOTE | 2019-04-27 18:20 | CT ---
INDICATION: Abdominal pain, uncontrolled emesis TECHNIQUE: CT abdomen and pelvis without contrast. COMPARISON: January 24, 2018 FINDINGS: Lower chest: Unremarkable. Liver: Unremarkable. Spleen: Unremarkable. Pancreas: Unremarkable. Gallbladder and bile ducts: Unremarkable. Adrenal glands: Unremarkable. Kidneys: Unremarkable. No kidney or ureteral stones and no hydronephrosis. GI tract: Unremarkable. Appendix is normal. Vascular structures: Unremarkable. Lymph nodes: Unremarkable. Miscellaneous: Unremarkable. No free air or significant free fluid. Pelvic Organs: Unremarkable. Bones: Unremarkable for age. IMPRESSION: No etiology seen to explain abdominal pain or emesis. Please note that all CT scans at this facility use dose modulation, iterative reconstruction, and/or weight-based dosing when appropriate to reduce radiation dose to as low as reasonably achievable. Dictated by Leslie Auguste MD @ Apr 27 2019 6:17PM Signed by Dr. Leslie Auguste @ Apr 27 2019 6:17PM
[2019-04-27] MEDS ORDERED: Promethazine 25 MG/ML SDV IM ONE (18:43)
[2019-04-27] MEDS ORDERED: Promethazine 25 MG/ML SDV ONE (18:45)
[2019-04-27 19:40] VITALS: BP 134/73; PULSE 65
== END 2019-04-27 19:34 | disposition home or self-care (01) ==
LOC: MW.ED 16:07
DX: F12.988 Cannabis use, unspecified with other cannabis-induced disorder (principal); R11.10 Vomiting, unspecified
CPT/HCPCS: 36415; 71045; 74176; 80053; 83605; 83690; 85025; 87040; 96361; 96372; 96374; 96375; 96376; 99284; C9113; J2405; J2550; J7040

== ENCOUNTER 2020-03-01 15:25 | Emergency (ER) | payer MEDICAID, OTHER, SELFPAY ==
[2020-03-01 15:34] VITALS: BP 125/77; PULSE 61
[2020-03-01] MEDS ORDERED: Haloperidol Lactate 5 MG/ML SDV IM ONE (15:38)
[2020-03-01] MEDS ORDERED: Promethazine 12.5 MG Supp RECTAL ONE (16:32)
--- NOTE | 2020-03-01 16:44 | EDM.PDOC ---
ED [facility] GENERAL MEDICAL PROBLEM - General Chief Complaint: Gastrointestinal Problem Stated Complaint: VOMITING Time Seen by Provider: 03/01/20 15:28 - History of Present Illness INITIAL COMMENTS - FREE TEXT/NARRATIVE: HISTORY AND PHYSICAL: History of present illness: This 29-year-old male with a past medical history of cannabinoid hyperemesis syndrome presents emergency department with persistent retching. No hematemesis, no hematochezia, no melena. Complains of generalized abdominal pain gets worse right before vomiting. Been in a hot bath all day to try and avoid vomiting. When he gets out he starts vomiting and he has not been able to tolerate liquids. He returns today for similar presentation as to previous. No real changes in his presentation. Review of systems: A 10-point review of systems, other than pertinent positives and negatives as stated per HPI, is otherwise negative. Past medical history: As per history of present illness and as reviewed below otherwise noncontributory. Surgical history: As per history of present illness and as reviewed below otherwise noncontributory. Social history: No reported history of drug or alcohol abuse. Family history: As per history of present illness and as reviewed below otherwise noncontributory. Physical exam: VITAL SIGNS: Reviewed. GENERAL: Intermittently retching. Appears to be in mild distress HEAD: No signs of head trauma. EYES: Pupils are equal. Extraocular motions intact. EARS: Hearing grossly intact. MOUTH: Oropharynx is normal. NECK: No adenopathy, no JVD. CHEST: Chest with clear breath sounds bilaterally. No wheezes, rales, or rhonchi. CARDIAC: Regular rate and rhythm. Normal S1 and S2, without murmurs, gallops, or rubs. VASCULAR: Peripheral pulses normal and equal in all extremities. ABDOMEN: Soft, without detectable tenderness. No sign of distention. No rebound or guarding, and no masses palpated. MUSCULOSKELETAL: Good range of motion of all major joints. Extremities without clubbing, cyanosis or edema. NEUROLOGIC EXAM: Alert and oriented x 3. No focal sensory or motor deficits. Speech normal. Follows commands. PSYCHIATRIC: Mood normal. SKIN: No rash or lesions. Initial Differential Diagnosis & Plan: Cannabinoid hyperemesis syndrome, esophageal rupture, esophagitis, gastric ulcer, gastritis Classic presentation for cannabinoid hyperemesis. No pain when swallowing which essentially rules out esophageal rupture. Patient is not having bleeding. Plan is for intramuscular Haldol and reevaluation Definitive disposition and diagnosis as appropriate pending reevaluation and review of above. Abdominal Pain Score (Numeric/FACES): 3 - Related Data Allergies Allergy/AdvReac Type Severity Reaction Status Date / Time No Known Allergies Allergy Verified 03/01/20 15:34 Home Meds: Home Meds Capsaicin [Zostrix Hp Foot] 1 gm TP Q8HR #55.6 cream..g. 03/01/20 [Rx] Promethazine [Phenergan] 25 mg RECTAL Q6H #12 tablet 03/01/20 [Rx] Past Medical History - Past Health History Medical/Surgical History: Denies Medical/Surgical History HEENT History: Reports: None Cardiovascular History: Reports: None Respiratory History: Reports: None Gastrointestinal History: Reports: GERD Other Gastrointestinal History: epigastric pain, nausea, hx gastric ulcer Genitourinary History: Reports: None Musculoskeletal History: Reports: Fracture, Other (See Below) Other Musculoskeletal History: hx club feet, hx fx finger Neurological History: Reports: None Psychiatric History: Reports: Anxiety, Depression Endocrine/Metabolic History: Reports: None Hematologic History: Reports: None Immunologic History: Reports: None Oncologic (Cancer) History: Reports: None Dermatologic History: Reports: None - Infectious Disease History Infectious Disease History: Reports: None - Past Surgical History GI Surgical History: Reports: None Musculoskeletal Surgical History: Reports: Other (See Below) Other Musculoskeletal Surgeries/Procedures:: multiple surgeries for repair of club feet Social & Family History - Family History Family Medical History: Noncontributory - Tobacco Use Smoking Status *Q: Current Status Unknown - Caffeine Use Caffeine Use: Reports: Coffee, Energy Drinks, Soda, Tea Other Caffeine Use: Occasionally - Recreational Drug Use Recreational Drug Use: Yes Drug Use in Last 12 Months: Yes Recreational Drug Type: Reports: Marijuana/Hashish Recreational Drug Use Frequency: Binges ED ROS GENERAL - Review of Systems Review Of Systems: See Below (Noted above) ED EXAM, GI/ABD - Physical Exam Exam: See Below (Noted above) Course - Vital Signs Text/Narrative:: 1 emesis episode after intramuscular Haldol. Otherwise doing well. I will discharge him home after giving a Phenergan suppository. At home he will have Phenergan suppositories and capsaicin cream. Return as needed. Hydration encouraged. Last Recorded V/S: Last Vital Signs Temp 96.1 F L 03/01/20 15:32 Pulse 61 03/01/20 15:32 Resp 22 H 03/01/20 15:32 BP 125/77 03/01/20 15:32 Pulse Ox 98 03/01/20 15:32 - Orders/Labs/Meds Meds: Medications Discontinued Medications Generic Name Dose Route Start Last Admin Trade Name Inessa PRN Reason Stop Dose Admin Haloperidol Lactate 10 mg 03/01/20 15:38 03/01/20 15:42 Haldol IM 03/01/20 15:39 10 mg ONETIME ONE Administration Promethazine HCl 25 mg 03/01/20 16:32 Phenadoz RECTAL 03/01/20 16:33 ONETIME ONE Departure - Departure Time of Disposition: 16:44 Disposition: Home, Self-Care 01 Condition: Good Clinical Impression: Cannabinoid hyperemesis syndrome - Discharge Information *PRESCRIPTION DRUG MONITORING PROGRAM REVIEWED*: Not Applicable *COPY OF PRESCRIPTION DRUG MONITORING REPORT IN PATIENT EDITA: Not Applicable Instructions: Cannabis Use Disorder Referrals: PCP,None [Primary Care Provider] - Additional Instructions: The following information is given to patients seen in the emergency department who are being discharged to home. This information is to outline your options for follow-up care. We provide all patients seen in our emergency department with a follow-up referral. The need for follow-up, as well as the timing and circumstances, are variable depending upon the specifics of your emergency department visit. If you don't have a primary care physician on staff, we will provide you with a referral. We always advise you to contact your personal physician following an emergency department visit to inform them of the circumstance of the visit and for follow-up with them and/or the need for any referrals to a consulting specialist. The emergency department will also refer you to a specialist when appropriate. This referral assures that you have the opportunity for follow-up care with a specialist. All of these measure are taken in an effort to provide you with optimal care, which includes your follow-up. Thank you for coming to the [facility] urgency department for your care today. It was Dr. Casillas's pleasure to take care of you. [facility] - Primary Care [address] [place] [id number] [facility] [address] [place] [address] You have cannabinoid hyperemesis syndrome. Likely secondary to sudden withdrawal of your cannabis. Please stop using cannabis. Use the capsaicin cream on your abdomen. Please use the Phenergan suppositories provided help with the nausea and vomiting. If you are unable to tolerate oral intake and or feeling dehydrated please return and we will give you additional treatment. Under all circumstances we always encourage you to contact your private physician who remains a resource for coordinating your care. When calling for follow-up care, please make the office aware that this follow-up is from your recent emergency room visit. If for any reason you are refused follow-up, please contact the [facility] Emergency Department at and asked to speak to the emergency department charge nurse. Sepsis Event Note (ED) - Evaluation Sepsis Screening Result: No Definite Risk - Focused Exam Vital Signs: Vital Signs Temp Pulse Resp BP Pulse Ox 03/01/20 15:32 96.1 F L 61 22 H 125/77 98
== END 2020-03-01 17:29 | disposition home or self-care (01) ==
LOC: MW.ED 15:25
DX: F12.988 Cannabis use, unspecified with other cannabis-induced disorder (principal); R11.10 Vomiting, unspecified
CPT/HCPCS: 96372; 99283; A9270; J1630; 99282

== ENCOUNTER 2022-02-07 14:34 | Emergency (ER) | payer MEDICAID ==
[2022-02-07] MEDS ORDERED: Sodium Chloride 0.9% 1,000 ML IV ONE ×3 (15:19→18:39)
[2022-02-07] MEDS ORDERED: Ondansetron 4 MG/2 ML SDV IVPUSH ONE (15:32)
[2022-02-07] MEDS ORDERED: diphenhydrAMINE 50 MG/ML SDV IVPUSH ONE (15:32)
[2022-02-07] MEDS ORDERED: Ketorolac 30 MG/ML SDV IVPUSH ONE (15:49)
[2022-02-07] MEDS ORDERED: Metoclopramide 10 MG/2 ML SDV IV ONE (15:49)
[2022-02-07 16:48] LABS: CARBON DIOXIDE,CO2 22.6 mmol/L (21.0-32.0); POTASSIUM,K 3.5 mmol/L (3.5-5.1)
[2022-02-07] MEDS ORDERED: LORazepam 2 MG/ML SDV IVPUSH ONE (17:03)
[2022-02-07] MEDS ORDERED: Promethazine 25 MG/ML SDV IM ONE (20:29)
[2022-02-07 23:49] VITALS: BP 131/71; PULSE 71
== END 2022-02-07 20:56 | disposition home or self-care (01) ==
LOC: MW.ED 14:34
DX: F12.288 Cannabis dependence with other cannabis-induced disorder (principal)
CPT/HCPCS: 36415; 74176; 80053; 83690; 85025; 93005; 96361; 96372; 96374; 96375; 99284; J1200; J1885; J2060; J2405; J2550; J2765; J7030; 93010